=== PATIENT | female | born 1955 | race Caucasian/White ===

== ENCOUNTER → 2016-11-12 | Outpatient (REF) | payer BC ==
[~2016-11-12] MED LIST: ACIP20TA5 PO; ATOR1TAB21 PO; CALC600T53 PO; CETI10TA PO; CITA20TA4 PO; COUM7.5T PO; DOCU100T8 PO; DONE10TA15 PO; KLOR1TAB69 PO; LANO250T15 PO; LASI20TA PO; LOSA25TA8 PO; LOVA1CAP17 PO; NATU400T PO; TOVI4TAB PO; VALA500T PO; VITA25TA PO; VITA500C19 PO; VITATAB73 PO; percocet PO
[2016-11-12 13:05] LABS: ALBUMIN 3.9 GM/DL (3.2-5.2); ALBUMIN/GLOBULIN RATIO 1.22 (1.00-1.93); BILIRUBIN,TOTAL 0.6 MG/DL (0.2-1.0); CALCIUM LEVEL 9.3 MG/DL (8.5-10.1); CREATININE FOR GFR 1.02 MG/DL (0.55-1.02); FREE T4 0.85 NG/DL (0.76-1.46); MAGNESIUM LEVEL 2.2 MG/DL (1.8-2.4); POTASSIUM SERUM 4.6 MEQ/L (3.5-5.1); TOTAL PROTEIN 7.1 GM/DL (6.4-8.2)
== END ==
LOC: M LABDRAW1 11:57
PROVIDERS: ATTEND Emergency Medicine
DX: I48.1 Persistent atrial fibrillation (principal); E78.2 Mixed hyperlipidemia; R73.01 Impaired fasting glucose; I10 Essential (primary) hypertension

== ENCOUNTER → 2017-01-28 | Outpatient (CLI) | payer BC ==
[~2017-01-28] MED LIST changes: +ACIP1TAB PO; -ACIP20TA5 PO; +ALBU17IN INH; +BREO1INH INH; +BREO1INH3; +CALC1TAB74 PO; -CALC600T53 PO; +CLAR10CA3 PO; +COUM10TA PO; +GABA600T PO; +SPIR25TA2 PO; +TOPR25TA PO; -VALA500T PO; +VALA500T2 PO
--- NOTE | 2017-01-28 16:28 | REPMRS ---
Patient History The patient states she has not had a clinical breast exam in over a year. Patient is postmenopausal. No known family history of cancer. Digital Woman Screen Mammo: January 28, 2017 - Exam #: [id number] Bilateral CC and MLO view(s) were taken. Technologist: Desiree Johnson, Technologist Prior study comparison: April 24, 2015, digital woman screen mammo performed at [facility] to [facility]. March 14, 2014, digital woman screen mammo performed at [facility]. January 17, 2013, digital woman screen mammo performed at [facility] to [facility]. FINDINGS: The breast tissue is heterogeneously dense. This may lower the sensitivity of mammography. There is a moderate amount of heterogeneously dense fibroglandular tissue which is fairly symmetric. There is no interval development of dominant mass, architectural distortion, or clustered microcalcification typical of malignancy. There has been no change in the appearance of the mammogram from the prior studies. ASSESSMENT: BI-RADS/ACR category 1 mammogram. Negative. Recommendation Routine screening mammogram of both breasts in 1 year (for women over age 40). This mammogram was interpreted with the aid of an FDA-approved computer-aided dectection system. Electronically Signed By: Victorino Deluca MD 01/28/17 [id number]
== END ==
LOC: M WHC 13:26
PROVIDERS: ATTEND Emergency Medicine
DX: Z12.31 Encounter for screening mammogram for malignant neoplasm of breast (principal)

== ENCOUNTER 2017-01-31 13:07 | Emergency (ER) | payer BC ==
[~2017-01-31] VITALS: Ht 157.5 cm; Wt 87.7 kg
[2017-01-31 13:07] VITALS: BP 90/59
[~2017-01-31 13:07] MED LIST changes: -ALBU17IN INH; -BREO1INH INH; -BREO1INH3; -CLAR10CA3 PO; -COUM10TA PO; -GABA600T PO; -SPIR25TA2 PO; -TOPR25TA PO
[2017-01-31] MEDS ORDERED: ALBU17IN INH (13:26)
[2017-01-31] MEDS ORDERED: SPIR25TA2 PO (13:26)
[2017-01-31] MEDS ORDERED: COUM10TA PO (13:26)
[2017-01-31] MEDS ORDERED: CLAR10CA3 PO (13:26)
[2017-01-31] MEDS ORDERED: BREO1INH INH (13:26)
[2017-01-31] MEDS ORDERED: TOPR25TA PO (13:26)
[2017-01-31] MEDS ORDERED: GABA600T PO (13:26)
--- NOTE | 2017-01-31 14:32 | REP ---
Clinical: Trauma. Technique: AP, lateral, bilateral oblique views right foot . Findings: The osseous structures and joint spaces are intact and normal. There is no evidence for acute fracture or dislocation. Surrounding soft tissues are unremarkable. No subcutaneous emphysema or radiodense foreign body. Impression: No acute fracture or dislocation. Signed by Jose Alicea MD 01/31/2017 02:24 P
== END 2017-01-31 14:47 | disposition home or self-care (01) ==
LOC: M ED 13:07
DX: S90.31XA Contusion of right foot, initial encounter (principal); W28.XXXA Contact with powered lawn mower, initial encounter; Y92.009 Unspecified place in unspecified non-institutional (private) residence as the place of occurrence of the external cause; Y93.89 Activity, other specified; Y99.8 Other external cause status; I10 Essential (primary) hypertension; Z86.73 Personal history of transient ischemic attack (TIA), and cerebral infarction without residual deficits; Z79.899 Other long term (current) drug therapy; Z79.01 Long term (current) use of anticoagulants

== ENCOUNTER 2017-02-09 07:46 | Emergency (ER) | payer BC ==
[~2017-02-09] VITALS: Ht 157.5 cm; Wt 88.6 kg
[~2017-02-09 07:46] MED LIST changes: +ALBU17IN INH; +BREO1INH INH; +CLAR10CA3 PO; +COUM10TA PO; +GABA600T PO; +SPIR25TA2 PO; +TOPR25TA PO
[2017-02-09] MEDS ORDERED: BREO1INH3 (08:01)
[2017-02-09 08:50] LABS: EOS # 0.1 K/mm3 (0.0-0.50); EOS % 2.7 % (0.0-3.0); LARGE UNSTAINED CELL # 0.1 K/mm3 (0.0-0.4); LARGE UNSTAINED CELL % 1.9 % (0.0-4.0); LYMPH # 0.7 K/mm3 (1.5-4.5); MEAN CORPUSCULAR HEMOGLOBIN 32.3 pg (27.0-33.0); MEAN CORPUSCULAR HGB CONC 34.1 g/dl (32.0-36.5); MEAN CORPUSCULAR VOLUME 94.6 fl (80.0-96.0); MONO # 0.3 K/mm3 (0.0-0.8); MONO % 7.3 % (0.0-5.0); NEUTROPHILS # 2.3 K/mm3 (1.8-7.7); NEUTROPHILS % 67.1 % (36.0-66.0); PLATELET COUNT, AUTOMATED 235 k/mm3 (150-450); RED CELL DISTRIBUTION WIDTH 15.9 % (11.5-14.5); WHITE BLOOD COUNT 3.4 K/mm3 (4.0-10.0)
[2017-02-09 08:58] LABS: INR 2.84
[2017-02-09] MEDS: METOPROLOL 5 MG/5 ML VIAL IV SCH ×3 (09:00→09:10)
[2017-02-09 09:11] LABS: ANION GAP 7 MEQ/L (8-16); BLOOD UREA NITROGEN 23 MG/DL (7-18); CALCIUM LEVEL 8.8 MG/DL (8.5-10.1); CARBON DIOXIDE LEVEL 25 MEQ/L (21-32); CHLORIDE LEVEL 106 MEQ/L (98-107); CREATININE FOR GFR 1.01 MG/DL (0.55-1.02); GLOMERULAR FILTRATION RATE 59.7 (>51); GLUCOSE, FASTING 117 MG/DL (70-105); POTASSIUM SERUM 3.4 MEQ/L (3.5-5.1); SODIUM LEVEL 138 MEQ/L (136-145)
[2017-02-09 09:49] LABS: FREE T4 1.18 NG/DL (0.76-1.46); PHOSPHORUS LEVEL 3.1 MG/DL (2.5-4.9)
--- NOTE | 2017-02-09 09:59 | REP ---
Chest x-ray: Two views. History: Shortness of breath. Comparison chest x-ray January 03, 2016. Findings: The patient is status post prior median sternotomy. EKG monitoring electrodes overlie the chest. There are clips in the upper abdomen on the right. Heart size is borderline and there is evidence suggesting left atrial enlargement as before. This is unchanged. Pulmonary vasculature is somewhat indistinct and congested however. There is subtle subpleural edema blunting the pleural angles bilaterally. Some Gladys C and B lines are visible. Impression: CHF pattern. Post median sternotomy. Mildly prominent heart with evidence of left atrial enlargement. Gladys B lines and subpleural edema noted blunting the pleural angles. Signed by Mj Deluca MD 02/09/2017 11:03 A
[2017-02-09] MEDS ORDERED: FUROSEMIDE 20 MG/2 ML VIAL (J1940) IV ONE (10:00)
[2017-02-09 13:11] VITALS: BP 117/80
--- NOTE | 2017-02-09 21:49 | ECGEPIP ---
Stationary ECG Study [facility] - ED Test Date: 2017-02-09 Pat Name: JOHNNY REHMAN Department: Room: - Gender: F Strategic Consultant: marc : 1955 Requested By: GIRISH Sun Order Number: [id number] Reading MD: Ann-Marie Garcia Measurements Intervals [place] Rate: 154 P: CT: 0 QRS: 8 QRSD: 87 T: 60 QT: 277 QTc: 444 Interpretive Statements ATRIAL FIBRILLATION WITH RAPID VENTRICULAR RESPONSE NONSPECIFIC ST & T-WAVE ABNORMALITY ABNORMAL RHYTHM ECG PRIOR 01/03/16 SINUS RHYTHM Electronically Signed On 02-09-2017 21:48:52 EDT by Ann-Marie Garcia
== END 2017-02-09 13:12 | disposition short-term general hospital (02) ==
LOC: M ED 07:46
DX: I48.91 Unspecified atrial fibrillation (principal); I50.9 Heart failure, unspecified; R94.31 Abnormal electrocardiogram [ECG] [EKG]; I11.0 Hypertensive heart disease with heart failure; J44.9 Chronic obstructive pulmonary disease, unspecified; J30.9 Allergic rhinitis, unspecified; Z86.73 Personal history of transient ischemic attack (TIA), and cerebral infarction without residual deficits; Z87.891 Personal history of nicotine dependence; Z79.899 Other long term (current) drug therapy; Z79.01 Long term (current) use of anticoagulants
CPT/HCPCS: 71020; 80048; 82550; 82553; 83690; 83735; 83880; 84100; 84439; 84443; 85025; 85610; 85730; 93005; 93041; 94760; 96374; 99285; J1940

== ENCOUNTER 2017-06-21 11:55 | Inpatient (IN) | payer BC ==
[~2017-06-21] VITALS: Ht 157.5 cm; Wt 90.4 kg
[~2017-06-21 11:55] MED LIST changes: +BREO1INH3 INH
[2017-06-21] MEDS ORDERED: ZYRT10CA PO (12:14)
[2017-06-21 13:04] LABS: BASO % 0.1 % (0.0-1.0); EOS % 0.2 % (0.0-3.0); IMMATURE GRANULOCYTE % 1.1 % (0-0); LYMPH # 1.6 10^3/uL (1.5-4.5); LYMPH % 9.2 % (24.0-44.0); MEAN CORPUSCULAR HEMOGLOBIN 30.9 pg (27.0-33.0); MEAN CORPUSCULAR HGB CONC 33.7 g/dl (32.0-36.5); MEAN CORPUSCULAR VOLUME 91.6 fl (80.0-96.0); MONO # 1.1 10^3/uL (0.0-0.8); MONO % 6.7 % (0.0-5.0); NEUTROPHILS # 14.1 10^3/uL (1.8-7.7); NEUTROPHILS % 82.7 % (36.0-66.0); PLATELET COUNT, AUTOMATED 344 10^3/uL (150-450); RED CELL DISTRIBUTION WIDTH 18.6 % (11.5-14.5); WHITE BLOOD COUNT 17.1 10^3/uL (4.0-10.0)
[2017-06-21 13:28] LABS: ANION GAP 10 MEQ/L (8-16); BLOOD UREA NITROGEN 27 MG/DL (7-18); CALCIUM LEVEL 8.9 MG/DL (8.5-10.1); CARBON DIOXIDE LEVEL 22 MEQ/L (21-32); CHLORIDE LEVEL 105 MEQ/L (98-107); GLUCOSE, FASTING 123 MG/DL (70-105); POTASSIUM SERUM 4.1 MEQ/L (3.5-5.1); SODIUM LEVEL 137 MEQ/L (136-145)
[2017-06-21] MEDS ORDERED: diltiaZEM 125 MG in NS 100 ML IV SCH (13:45)
[2017-06-21 13:56] LABS: INR 4.2
--- NOTE | 2017-06-21 14:01 | REP ---
PORTABLE CHEST X-RAY: Single view. HISTORY: Dyspnea and cough. Comparison chest x-ray: February 09, 2017. FINDINGS: EKG monitoring electrodes overlie the chest as before. Prior median sternotomy wires are again seen. There is evidence of left atrial enlargement. The heart is not enlarged overall. Pleural angles are sharp. No pleural effusion or pulmonary edema is seen. There is some pulmonary vascular cephalization. Today's view is exposed at a somewhat apical lordotic projection. No other bony abnormality is seen. IMPRESSION: Cephalization. Prior median sternotomy. Evidence of left atrial enlargement. Otherwise no active disease. Signed by Mj Deluca MD 06/21/2017 03:45 P
[2017-06-21] MEDS ORDERED: NS IV SCH (14:21)
[2017-06-21] MEDS ORDERED: DILTIAZEM IV SCH (14:21)
[2017-06-21] MEDS ORDERED: FUROSEMIDE 40 MG/4 ML VIAL (J1940) IV ONE (14:45)
[2017-06-21] MEDS ORDERED: DIGOXIN INJ 0.5 MG/2 ML AMP (J1160) IV ONE (15:15)
[2017-06-21] MEDS ORDERED: IPRATROPIUM 0.5MG/ALBUTEROL 2.5MG INH SOL UD 3ML (DUONEB)(J7620) NEB ONE (15:15)
[2017-06-21 15:44] LABS: ABG BASE EXCESS -0.6 (-2.0-2.0); ABG HCO3 22.6 MEQ/L (22.0-26.0); ABG PARTIAL PRESSURE CO2 32.7 mmHg (35.0-45.0); ABG PARTIAL PRESSURE O2 136.3 mmHg (75.0-100.0); ABG TOTAL CO2 23.6 MEQ/L (22.0-29.0); ABG pH (ARTERIAL) 7.458 UNITS (7.350-7.450)
[2017-06-21] MEDS ORDERED: PRAV40TA2 PO (16:31)
[2017-06-21] MEDS ORDERED: PRED10TA2 PO (16:31)
[2017-06-21] MEDS ORDERED: ACET50TAOT PO (16:31)
[2017-06-21] MEDS ORDERED: MONT10TA2 PO (16:31)
[2017-06-21] MEDS ORDERED: COUM1TAB19 PO (16:31)
[2017-06-21] MEDS ORDERED: AUGM875T28 PO (16:31)
[2017-06-21] MEDS ORDERED: GUAI400T6 PO (16:31)
[2017-06-21] MEDS ORDERED: GABA600T PO (16:32)
[2017-06-21 16:41] LABS: THYROXINE (T4) 7.1 UG/DL (4.5-12.0)
[2017-06-21] MEDS ORDERED: AMIODARONE HCL 150 MG in APPROPRIATE DILUENT 1 EA IV ONE (16:45)
[2017-06-21] MEDS: AMIODARONE HCL 360 MG in APPROPRIATE DILUENT 1 EA IV SCH ×3 (17:00→23:09)
[2017-06-21] MEDS ORDERED: IPRATROPIUM 0.5MG/ALBUTEROL 2.5MG INH SOL UD 3ML (DUONEB)(J7620) NEB PRN (18:00)
--- NOTE | 2017-06-21 20:31 | CR ---
DATE OF CONSULTATION: 06/21/2017 REFERRING PHYSICIAN: Vaishali Cooper MD HISTORY OF PRESENT ILLNESS: Ms. Corrales is previously unknown to me, even though I found in the computer today I actually saw her once in 2005. She is a pleasant, 61-year-old female, who has a history of mitral valve replacement in [address] [employer] prosthesis for mitral stenosis. She presented to our facility after approximately a 10 day illness. She describes gradually progressive dyspnea, together with cough and sore throat with symptoms of upper respiratory infection. She was prescribed by her primary care physician Augmentin and prednisone, but it did not seem to help her symptoms much. When she came to see him, she was found to be in atrial fibrillation with rapid ventricular response (RVR) and was brought to hospital for further evaluation. In an attempt to slow down her heart rate, she was given a total of 50 mg IV Cardizem and 0.5 mg of IV digoxin without any appreciable effect on her heart rate. She continues to be short of breath with minimal activity, but feels fairly comfortable at rest. She carries a prior history of atrial fibrillation. Most of the history is provided by her daughter and she reports that she had an episode in July 2015, that was brought on by an upper respiratory infection and required cardioversion, and another episode was in January 2017, again brought on by symptoms of upper respiratory infection. At that point, she was transferred to [facility] where she underwent cardioversion and was discharged home the same today. She follows chronically with Dr. Howard and has been chronically anticoagulated with Coumadin. PAST MEDICAL HISTORY: 1. Mitral stenosis, history of initially valvuloplasty and eventually mitral valve replacement in [address] Pop prosthesis. 2. History of paroxysmal atrial fibrillation as above. 3. 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 4. History of intracranial hemorrhage around 2005 or 2006, apparently resolved with just simply discontinuation of Coumadin and reversing INR. She has been left with symptoms of mild cognitive deficits since and briefly follows with Dr. Cardoza. 5. History of Carrion's esophagus. 6. Depression. 7. History of asthma. 8. Hyperlipidemia. 9. Gastroesophageal reflux disease (GERD). SURGICAL HISTORY: Positive for mitral valve replacement as above, cholecystectomy, carpal tunnel surgeries, tonsillectomy, and bladder repair. OUTPATIENT MEDICATIONS: - Ventolin as needed - vitamin E - calcium with vitamin D - Zyrtec 10 mg daily - citalopram 20 mg daily - donepezil 10 mg daily - fluticasone inhalation as needed - furosemide 40 mg daily - gabapentin 600 mg twice a day - losartan 25 mg daily - metoprolol 25 mg daily - montelukast 10 mg daily - Lovaza 1 gram two tablets twice a day - pravastatin 40 mg daily - prednisone taper as directed by primary care physician - AcipHex 20 mg daily - spironolactone 12.5 mg daily - valacyclovir 500 mg at night - vitamin B - warfarin SOCIAL HISTORY: Patient lives with her daughter and her family. There is no history of alcohol and smoking. FAMILY HISTORY: Her mother suffered a cerebrovascular accident and from it. ALLERGIES: No known allergies. REVIEW OF SYSTEMS; She denies any recent nausea, vomiting, diarrhea. No recent bleeding problems. No syncope and near syncope. She denies any sensation of palpitations per se. She has mild discomfort in her chest which has been persistent and chronic. Dyspnea is markedly worse for about 10 days. No abdominal pain. No diarrhea. No blood in her urine. No change in chronic mild peripheral edema. The rest of the review of systems as above or negative. PHYSICAL EXAMINATION: Ms. Corrales is a middle aged woman who looks a little older than her calendar age. Last set of documented vital signs was blood pressure 124/80, heart rate 148, irregularly irregular, saturation was 94% on room air, and her weight was documented at 90 kg. She is alert and oriented times three, even though she is unable to provide good medical history and most of the information has to be filled in by her daughter. Her jugular venous pulse (JVP) does not appear high persistently, but she has prominent TR pulsation going at least 4 cm above clavicle. Lungs are relatively clear to auscultation, I do not appreciate any wheezing or crackles, but the air movement is fair. Heart exam reveals somewhat muffled heart sound with a prosthetic sound intact. I do not appreciate any murmur or gallop. She has prominent tachycardia. Abdomen is soft without distention. No hepatosplenomegaly. Extremities about 1+ edema to about mid shins. Peripheral pulses are of good quality. I do not appreciate any skin lesions. Neurologically she is intact. She has thrush in her mouth. LABORATORY DATA: CBC revealed a WBC count of 17,000, hemoglobin 12.2, hematocrit 36, and platelet count 344,000. Basic metabolic panel: Potassium 4.1, BUN 27, creatinine 1.24, GFR 49, glucose 123, lactic acid 1.7. She already had two sets of cardiac enzymes that have been negative. K-dxwdfykl-[id number]-BNP is 3600 and TSH is 1.4. INR is 4.2. Chest x-ray reveals cardiomegaly. I do not appreciate the prosthetic valve on under penetrated film, but there is clear cut of prior sternotomy. I do not appreciate any pleural effusions. There appears to be vascular distribution. No distinct infiltrate. ASSESSMENT AND PLAN: Ms. Corrales is a 61-year-old female who is many years after mitral valve replacement with mechanical prosthesis and prior history of atrial fibrillation, who presents with another atrial fibrillation with rapid ventricular response (RVR). I actually suspect that her respiratory illness, that was probably triggered by her graeme infection from her family members (according to her daughter everybody in her house has been sick lately), triggered the atrial fibrillation and consequently caused the shortness of breath. Currently, she is receiving IV amiodarone. I think it is likely that she will need some form of antiarrhythmic at least on a short run to decrease the likelihood of relapse of another atrial fibrillation. Together with combined Cardizem, or potentially metoprolol, I am hoping that adequate heart rate will be accomplished within a day or two. Subsequently, we can consider DC cardioversion depending on her clinical condition. Simultaneously, I also agree with receiving higher dose of IV diuretics, she is on 40 mg of furosemide daily and I agree with 40 mg twice a day IV dosing. Even though no radha pulmonary edema is apparent on chest x-ray, she certainly is in congestive heart failure, at least in part due to her tachycardia. Unfortunately, I will be leaving town tomorrow morning, but I will sign off patient with the covering weigher and charger. I explained this to the family. In the long run, her followup will remain with Dr. Howard in [place].
--- NOTE | 2017-06-21 20:51 | HPE ---
DATE OF ADMISSION: 06/21/2017 PRIMARY CARE PROVIDER: Dr. Faizan Johnson ADMINISTRATIVE SERVICES MANAGER: Dr. Howard INPATIENT ADMINISTRATIVE SERVICES MANAGER: Dr. Edouard on consult CHIEF COMPLAINT: Shortness of breath and cough with palpitations. HISTORY OF PRESENT ILLNESS: This is a 61-year-old female patient with underlying medical history of asthma, paroxysmal atrial fibrillation, dementia, cerebrovascular accident (CVA), with no residual deficits other than some dementia, and also history of intracranial hemorrhage and also history of asthma, hypertension, dyslipidemia, atrial fibrillation on Coumadin; client resource specialist Dr. Field. Patient presented to the hospital with one week of shortness of breath and cough productive of yellow sputum with chills and undetected fever, and then for the past couple with palpitations, with positive sick contact, and significant shoulder pain with cough. Patient was sent here b y primary care provider because patient was found to have been in atrial fibrillation with rapid ventricular response previous episodes in March, patient was transferred to [place] and had cardioversion. Patient denies any chest pain, pressure or discomfort. Received nebulizer treatment in the emergency room. ALLERGIES: No know drug allergies. PAST MEDICAL HISTORY: Asthma, paroxysmal atrial fibrillation, dementia, congestive heart failure, hypertension, dyslipidemia, cerebrovascular accident (CVA), hemorrhagic bleed, intracranial bleed secondary to trauma. PAST SURGICAL HISTORY: Tonsillectomy, mitral valve repair, mitral valve replacement with mechanical valve, cholecystectomy. SOCIAL HISTORY: Quit smoking 2005, one pack per day for 38 year. Rate alcohol use once a year or twice a year. No illicit drug use. FAMILY HISTORY: Denies family history of cancer. REVIEW OF SYSTEMS: Reported palpitations, shoulder pain and cough with subjective chills. All other review of systems are negative. HOME MEDICATIONS: - acetaminophen 1000 mg by mouth every 6 hours - Ventolin inhalers as needed - Vitamin E 400 units by mouth daily - Augmentin 875 mg by mouth twice a day - calcium vitamin D one tablet - Zyrtec 10 mg by mouth at bedtime - citalopram 40 mg by mouth daily - Colace 100 mg by mouth twice a day - donepezil 10 mg by mouth at bedtime - Breo inhalation daily - Lasix 40 mg by mouth daily - gabapentin 600 mg by mouth every morning 1200 mg by mouth at bedtime - Robitussin 400 mg by mouth daily - Losartan 25 mg by mouth daily - metoprolol XL 25 mg by mouth daily - Singulair 10 mg by mouth daily - [place] 3 fatty acid 2 capsule by mouth twice a day - Pravastatin 40 mg by mouth daily - Prednisone taper - Aciphex 20 mg by mouth daily - spironolactone 12.5 mg by mouth daily - Valacyclovir 100 mg by mouth at bedtime - Vitamin B complex one tablet by mouth daily - Coumadin 7.5 mg by mouth Tuesday, Tuesday, 9 mg by mouth Tuesday, Tuesday, , Tuesday, Tuesday. PHYSICAL EXAMINATION: Vital signs: Temperature 96.5, pulse 170 to 140, respiratory 16, blood pressure 124/80, pulse ox 94% on room air. GENERAL: Patient obese, alert and oriented times three, speaks in full sentences in no acute distress. HEENT: Normocephalic, atraumatic. PULMONARY: Bilateral expiratory wheeze. CARDIAC: Irregularly irregular, tachycardia, S1, S2. ABDOMEN: soft, non-tender, positive bowel sounds. EXTREMITIES: 1+ edema bilateral lower extremities. LABORATORY DATA: Wbc 17.1, hemoglobin and hematocrit 12.2/36.2, platelets 344. Chemistry: Sodium 137, potassium 4.1, chloride 105, bicarbonate 22, BUN 25, creatinine 1.2, cardiac enzyme negative times two. Chest x-ray: No focal consolidation. ASSESSMENT AND PLAN: This is a 61-year-old female patient with underlying medical history of dementia, cerebrovascular accident (CVA), congestive heart failure, paroxysmal atrial fibrillation, hypertension, dyslipidemia, asthma, admitted with atrial fibrillation with rapid ventricular response. PROBLEMS: 1. Atrial fibrillation with rapid ventricular response, given asthma exacerbation avoid beta blockers. Cardiology consulted. Cardizem drip was ineffective. Consider Cardizem oral 60 mg by mouth every 6 hours. Case discussed with Dr. Edouard. We will place the patient on amiodarone drip. Case also discussed with patient's rf design engineer cardiac monitor technician for Dr. Howard, patient's primary rf design engineer, agrees with current plan. If patient does not convert with amiodarone drip will consider cardioversion in the morning. Trend cardiac enzymes. Thyroid function appreciated. Continue monitoring. Cardiology consulted. Patient on Coumadin with supratherapeutic INR. We will follow up INR. Patient has mechanical valve with a goal INR of 2.5 to 3.5. We will follow up INR and dose Coumadin accordingly. 2. Acute congestive heart failure exacerbation. Continue Lasix. Strict ins and outs. Daily weight. Continue home medication. 3. Acute asthma exacerbation likely secondary to viral upper respiratory infection, withholding antibiotics, C-reactive protein minimal. We will place the patient on IV steroids. Nebulizer treatment. Continue inhalers. Follow up respiratory panel. Sputum cultures. Withholding antibiotics at this roxane given less likely bacterial infection. 4. Leukocytosis secondary to steroid culture sent. 5. Dementia. Continue home medication. 6. Hypertension. Continue current medication. Patient on Cardizem, Lasix, losartan., 7. Dyslipidemia. Continue statin. 8. History of cerebrovascular accident (CVA). Patient was on Coumadin with supratherapeutic INR. 9. Deep vein thrombosis prophylaxis. Patient on Coumadin with supratherapeutic INR for treatment of valvular atrial fibrillation. DISPOSITION: Pending rate control. Follow up cardiac enzyme. Taper steroids as tolerated. Physical therapy.
[2017-06-21 21:00] VITALS: BP 142/86
[2017-06-21] MEDS ORDERED: DONEPEZIL 5 MG TAB PO SCH (21:00)
[2017-06-21] MEDS: OMEGA-3 1050MG CAPSULE PO SCH (21:05)
[2017-06-21] MEDS: methylPREDNISolone INJ 125 MG/2 ML VIAL (J2930) IV SCH (21:05)
[2017-06-21] MEDS: DOCUSATE SODIUM 100 MG CAP PO SCH (21:05)
[2017-06-21] MEDS: SENOKOT S TAB PO SCH (21:05)
[2017-06-21] MEDS: CETIRIZINE (ZyrTEC) 10 MG TAB PO SCH (21:06)
[2017-06-21] MEDS: valACYclovir HCL 500 MG TAB PO SCH (21:06)
[2017-06-21] MEDS: BENZONATATE 100 MG CAP PO SCH (21:06)
[2017-06-21] MEDS: guaiFENesin ER 600 MG TAB PO SCH (21:06)
[2017-06-21] MEDS: GABAPENTIN 400 MG CAP PO SCH (21:07)
[2017-06-21 21:41] LABS: CALCIUM LEVEL 8.9 MG/DL (8.5-10.1); CREATININE FOR GFR 1.46 MG/DL (0.55-1.02); MAGNESIUM LEVEL 1.7 MG/DL (1.8-2.4); POTASSIUM SERUM 4.2 MEQ/L (3.5-5.1)
[2017-06-21 22:00] VITALS: BP 116/86
[2017-06-21] MEDS ORDERED: MAGNESIUM GLUCONATE 500 MG TAB PO ONE (22:45)
[2017-06-21] MEDS: NYSTATIN 500,000 U/5 ML SUSP UDC SS SCH ×2 (23:09→23:26)
[2017-06-21] MEDS: IPRATROPIUM 0.5MG/ALBUTEROL 2.5MG INH SOL UD 3ML (DUONEB)(J7620) NEB SCH (23:15)
[2017-06-22] VITALS (12 sets, daily range): BP systolic 121–162; BP diastolic 62–107
[2017-06-22] MEDS: IPRATROPIUM 0.5MG/ALBUTEROL 2.5MG INH SOL UD 3ML (DUONEB)(J7620) NEB SCH ×4 (01:22→20:00)
[2017-06-22] MEDS: methylPREDNISolone INJ 125 MG/2 ML VIAL (J2930) IV SCH ×3 (03:03→18:15)
[2017-06-22] MEDS: AMIODARONE HCL 360 MG in APPROPRIATE DILUENT 1 EA IV SCH ×2 (04:44→15:35)
[2017-06-22 05:17] LABS: MEAN CORPUSCULAR HEMOGLOBIN 30.9 pg (27.0-33.0); MEAN CORPUSCULAR HGB CONC 33.3 g/dl (32.0-36.5); MEAN CORPUSCULAR VOLUME 92.8 fl (80.0-96.0); PLATELET COUNT, AUTOMATED 255 10^3/uL (150-450); RED CELL DISTRIBUTION WIDTH 18.7 % (11.5-14.5)
[2017-06-22 05:30] LABS: INR 2.73
[2017-06-22 05:43] LABS: ALBUMIN/GLOBULIN RATIO 0.75 (1.00-1.93); ALKALINE PHOSPHATASE 229 U/L (45-117); ALT/SGPT 158 U/L (12-78); ANION GAP 7 MEQ/L (8-16); AST/SGOT 71 U/L (7-37); BLOOD UREA NITROGEN 27 MG/DL (7-18); CALCIUM LEVEL 8.6 MG/DL (8.5-10.1); CARBON DIOXIDE LEVEL 29 MEQ/L (21-32); CHLORIDE LEVEL 100 MEQ/L (98-107); CREATININE FOR GFR 1.24 MG/DL (0.55-1.02); GLOMERULAR FILTRATION RATE 47.1 (>51); GLUCOSE, FASTING 186 MG/DL (70-105); POTASSIUM SERUM 4.3 MEQ/L (3.5-5.1); SODIUM LEVEL 136 MEQ/L (136-145)
[2017-06-22] MEDS: NYSTATIN 500,000 U/5 ML SUSP UDC SS SCH ×3 (05:47→18:13)
[2017-06-22] MEDS ORDERED: DIGOXIN 0.25 MG TAB PO ONE (08:00)
--- NOTE | 2017-06-22 08:30 | IPN ---
DATE: 06/22/2017 Mrs. Corrales had a relatively good night. She tells me that she was able to sleep reasonably well and did not have any is dyspnea at rest and no paroxysmal nocturnal dyspnea, but she still is very short of breath just walking to the bathroom. Her heart rate unfortunately remains uncontrolled, averages around 140 beats per minute. Vital signs this morning: Blood pressure 162/91, heart rate is 148. Saturation 94%. Her fluid balance yesterday was slightly negative. Weight is documented at 91.6. She is alert and oriented and appropriate. Her jugular venous pressure is a little bit over clavicle. Lungs reveal fair air movement, but I do not appreciate any wheezing or crackles. Heart exam reveals intact metallic prosthetic sounds and no gallop or rub. Abdomen is soft. No tenderness. Trace peripheral edema. Neurologically, no deficit. LABORATORY GONZALEZ: CBC revealed WBC count 15,000, hemoglobin 11.6, hematocrit 34, platelet count 255,000. Basic metabolic panel: Potassium 4.3, BUN 27, creatinine 1.2, GFR 47 and glucose 186. The respiratory virus panel she tested positive for parainfluenza virus. Blood cultures are still pending. ASSESSMENT AND PLAN: Mrs. Corrales is a 61-year-old female who has a history of mitral valve replacement many years ago and presented with relapse of atrial fibrillation with rapid ventricular response. She does not have any subjective feeling of the arrhythmia, but develops worsening dyspnea. I suspect that the respiratory infection was the trigger here. So far we have not accomplished rate control. She is currently receiving Cardizem every 6 hours. She got 0.5 mg of digoxin yesterday, and she is on amiodarone drip. I will give her single additional dose of digoxin today 0.25 mg and continue amiodarone loading. I am hopeful that it will provide sufficient rate control by the end of the day. Tentatively, I think we should consider cardioversion. I am little bit myself unclear whether it would be better to wait for more amiodarone to penetrate her systems so she has lesser risk of relapse or whether to pursue early on. In any case, I am going to be leaving the area at noon today and I will pass her coverage to covering physician. I do expect that the cardioversion will have to be performed within a day or two. Otherwise, we will continue anticoagulation. INR today is 2.7 and was 4.2 yesterday, so she has been therapeutic and according to her family she has been consistently therapeutic.
[2017-06-22] MEDS ORDERED: LOSARTAN 25 MG TAB PO SCH (09:00)
[2017-06-22] MEDS: DOCUSATE SODIUM 100 MG CAP PO SCH ×2 (09:00→21:04)
[2017-06-22] MEDS ORDERED: VITAMIN E 400 INTERNATIONAL UNITS CAP PO SCH (09:00)
[2017-06-22] MEDS: SENOKOT S TAB PO SCH ×2 (09:00→21:03)
[2017-06-22] MEDS: guaiFENesin ER 600 MG TAB PO SCH ×2 (09:02→21:04)
[2017-06-22] MEDS: BENZONATATE 100 MG CAP PO SCH ×3 (09:03→21:03)
[2017-06-22] MEDS: PRAVASTATIN 20 MG TAB PO SCH (09:03)
[2017-06-22] MEDS: OMEGA-3 1050MG CAPSULE PO SCH (09:04)
[2017-06-22] MEDS: MONTELUKAST 10 MG TAB PO SCH (09:04)
[2017-06-22] MEDS: GABAPENTIN 300 MG CAP PO SCH (09:04)
[2017-06-22] MEDS: SPIRONOLACTONE 12.5MG PER 1/2 TABLET PO SCH (09:04)
[2017-06-22] MEDS: FUROSEMIDE 40 MG/4 ML VIAL (J1940) IV SCH ×2 (09:05→18:15)
--- NOTE | 2017-06-22 09:20 | ECGEPIP ---
Stationary ECG Study [facility] - ED Test Date: 2017-06-21 Pat Name: JOHNNY REHMAN Department: Room: - Gender: F General Lithographic Worker: sb : 1955 Requested By: Steve Nelson Order Number: [id number] Reading MD: Ann-Marie Garcia Measurements Intervals [place] Rate: 169 P: [place]: 0 QRS: 14 QRSD: 84 T: 57 QT: 246 QTc: 413 Interpretive Statements ATRIAL FIBRILLATION WITH RAPID VENTRICULAR RESPONSE NSTTW ABNORMALITY ABNORMAL RHYTHM ECG INCREASED RATE 02/09/17 Electronically Signed On 06-22-2017 9:19:55 EST by Ann-Marie Garcia
--- NOTE | 2017-06-22 11:47 | IPNPDOC ---
Subjective Date Seen The patient was seen on 06/22/17. Subjective Chief Complaint/HPI The patient is a 61-year-old female admitted with a reason for visit of A Fib With Rapid Ventricular Response. Events since last encounter Patient feels a little better than yesterday . still with palpitation but says the abdominal pain and generalized body ache is better. no fever or chills, no sob , no nausea or vomiting . Says always has diarrhea. Objective Physical Examination General Exam: Positive: Alert, Cooperative, No Acute Distress Eye Exam: Positive: PERRLA, Conjunctiva & lids normal, EOMI, Negative: Sclera icteric ENT Exam: Positive: Atraumatic, Mucous membr. moist/pink, Pharynx Normal Neck Exam: Positive: Supple, Negative: JVD, thyromegaly Chest Exam: Positive: Clear to auscultation, Diminished Heart Exam: Positive: Tachycardic, Irregular Rhythm, Normal S1, Normal S2, Other (metallic click), Negative: Gallops, Murmurs, Rubs Telemetry: Positive: Atrial fibrillation Abdomen Exam: Positive: Normal bowel sounds, Soft, Negative: Tenderness, Hepatospenomegaly Extremity Exam: Positive: Edema Assessment /Plan Problems (1) Atrial fibrillation with rapid ventricular response Status: Acute Problem Text: patient in on amiodarone and diltiazem . Also received digoxin. if not controlled pateint will need cardioversion precipitated by respiratory viral infection (2) Parainfluenza infection Status: Acute (3) H/O mitral valve replacement with mechanical valve Status: Chronic Problem Text: MVR in 1988 due to mitral stenosis on coumadin (4) Asthma Status: Chronic (5) History of intracerebral hemorrhage without residual deficit Status: Resolved Problem Text: around 2005- due to trauma. resolved after reversion of coumadin. (6) History of CVA (cerebrovascular accident) without residual deficits Status: Resolved (7) Dementia Status: Chronic (8) Hyperlipidemia Status: Chronic (9) Hypertension Status: Chronic (10) Pulmonary hypertension Status: Chronic (11) Congestive heart failure Status: Acute Problem Text: will continue with lasix and spironolactone. Plan/VTE VTE Prophylaxis Ordered?: Yes VS, I&O, 24H, Fishbone Vital Signs/I&O Vital Signs Date Time Temp Pulse Resp B/P (MAP) Pulse Ox O2 Delivery O2 Flow Rate FiO2 06/22/17 09:04 158 06/22/17 09:00 127/96 06/22/17 08:00 Room Air 06/22/17 08:00 98.3 22 95 I&O- Last 24 Hours up to 6 AM 06/23/17 06:00 Intake Total 240 ml Output Total 350 ml Balance -110 ml Laboratory Data 24H LABS Laboratory Tests 2 06/21/17 12:46: Immature Granulocyte % (Auto) 1.1H, White Blood Count 17.1H, Red Blood Count 3.95L, Hemoglobin 12.2, Hematocrit 36.2, Mean Corpuscular Volume 91.6, Mean Corpuscular Hemoglobin 30.9, Mean Corpuscular Hemoglobin Concent 33.7, Red Cell Distribution Width 18.6H, Platelet Count 344, Neutrophils (%) (Auto) 82.7H, Lymphocytes (%) (Auto) 9.2L, Monocytes (%) (Auto) 6.7H, Eosinophils (%) (Auto) 0.2, Basophils (%) (Auto) 0.1, Neutrophils # (Auto) 14.1H, Lymphocytes # (Auto) 1.6, Monocytes # (Auto) 1.1H, Eosinophils # (Auto) 0.0, Basophils # (Auto) 0.0, Immature Granulocyte # (Auto) 0.2H, Nucleated Red Blood Cells % (auto) 2.0H, Anion Gap 10, Glomerular Filtration Rate 49.0L, Blood Urea Nitrogen 27H, Creatinine 1.20H, Sodium Level 137, Potassium Level 4.1, Chloride Level 105, Carbon Dioxide Level 22, Calcium Level 8.9, Total Creatine Kinase 77, Creatine Kinase MB 2.1, Creatine Kinase MB Relative Index 2.72, Troponin I < 0.02 06/21/17 13:32: Prothrombin Time 42.7H, Prothromb Time International Ratio 4.20, Lactic Acid Level 1.7, C-Reactive Protein, Quantitative 0.31H, HL-Dsy-D-Type Natriuretic Peptide 3656H, Thyroid Stimulating Hormone (TSH) 1.400, Free Thyroxine Index 2.6 , Thyroxine (T4) 7.1, Triiodothyronine (T3) Uptake 36 06/21/17 15:19: Blood Gas Bicarbonate Standard 24.0, Arterial Blood pH 7.458H, Arterial Blood Partial Pressure CO2 32.7L, Arterial Blood Partial Pressure O2 136.3H, Arterial Blood Total CO2 23.6, Arterial Blood HCO3 22.6, Arterial Blood Base Excess -0.6 , Arterial Blood Oxygen Saturation 99.0 06/21/17 19:04: Total Creatine Kinase 63, Creatine Kinase MB 1.6, Creatine Kinase MB Relative Index 2.53, Troponin I < 0.02 06/21/17 21:05: Anion Gap 6L, Glomerular Filtration Rate 39.0L, Blood Urea Nitrogen 24H, Creatinine 1.46H, Sodium Level 138, Potassium Level 4.2, Chloride Level 101, Carbon Dioxide Level 31, Calcium Level 8.9, Magnesium Level 1.7L 06/22/17 05:02: Anion Gap 7L, Glomerular Filtration Rate 47.1L, Blood Urea Nitrogen 27H, Creatinine 1.24H, Sodium Level 136, Potassium Level 4.3, Chloride Level 100, Carbon Dioxide Level 29, Calcium Level 8.6, Magnesium Level 2.0, Nucleated Red Blood Cells % (auto) 0.8H, Prothrombin Time 30.1H, Prothromb Time International Ratio 2.73, Aspartate Amino Transf (AST/SGOT) 71H, Alanine Aminotransferase (ALT /SGPT) 158H, Total Creatine Kinase 51, Alkaline Phosphatase 229H, Total Bilirubin 1.0, Total Protein 7.0, Albumin 3.0L, Creatine Kinase MB 1.6, Creatine Kinase MB Relative Index 3.13, Troponin I < 0.02, C-Reactive Protein, Quantitative 0.41H, Albumin/Globulin Ratio 0.75L CBC/BMP Laboratory Tests 06/21/17 12:46 Red Blood Count 3.95 L, Mean Corpuscular Volume 91.6, Mean Corpuscular Hemoglobin 30.9, Mean Corpuscular Hemoglobin Concent 33.7, Red Cell Distribution Width 18.6 H, Neutrophils (%) (Auto) 82.7 H, Lymphocytes (%) (Auto ) 9.2 L, Monocytes (%) (Auto) 6.7 H, Eosinophils (%) (Auto) 0.2, Basophils (%) ( Auto) 0.1, Neutrophils # (Auto) 14.1 H, Lymphocytes # (Auto) 1.6, Monocytes # ( Auto) 1.1 H, Eosinophils # (Auto) 0.0, Basophils # (Auto) 0.0, Calcium Level 8.9 , Total Creatine Kinase 77 06/21/17 21:05 Calcium Level 8.9 06/22/17 05:02 Red Blood Count 3.75 L, Mean Corpuscular Volume 92.8, Mean Corpuscular Hemoglobin 30.9, Mean Corpuscular Hemoglobin Concent 33.3, Red Cell Distribution Width 18.7 H, Calcium Level 8.6, Total Creatine Kinase 51, Aspartate Amino Transf (AST/SGOT) 71 H, Alanine Aminotransferase (ALT/SGPT) 158 H, Alkaline Phosphatase 229 H, Total Bilirubin 1.0, Total Protein 7.0, Albumin 3.0 L Microbiology Microbiology 06/21/17 Blood Culture, Received Pending 06/21/17 Blood Culture, Received Pending 06/21/17 Respiratory Virus Panel (PCR) ([facility]) - Final, Complete Parainfluenza 4 (Piv4) ELIGIO MEDINA MD Jun 22, 2017 11:47
--- NOTE | 2017-06-22 16:43 | IPNPDOC ---
Text Note Date of Service The patient was seen on 06/22/17. NOTE At approximately 4:20PM received a page from ICU regarding patient. Patient's daughter had questions about when her Mother's Coumadin would be re-started. Patient's INR is currently therapeutic at 2.73. Coumadin has been on hold since it was supra-therapeutic at time of admission. Called on-call addressograph operator to discuss restarting Coumadin in light of patient possibly undergoing cardioversion in the next couple of days. College Director suggested restarting patient's Coumadin at 9mg Tuesday/Tuesday and 7.5mg Tuesday/ /Tuesday/Tuesday/Tuesday. Patient's home dosage was 9mg 5xweek and 7.5mg 2xweek. Have made adjustments accordingly. Will call daughterRachana , and provider update. VS,Fishbone, I+O VS, Fishbone, I+O Laboratory Tests 06/21/17 21:05 Calcium Level 8.9 06/22/17 05:02 Calcium Level 8.6, Red Blood Count 3.75 L, Mean Corpuscular Volume 92.8, Mean Corpuscular Hemoglobin 30.9, Mean Corpuscular Hemoglobin Concent 33.3, Red Cell Distribution Width 18.7 H, Aspartate Amino Transf (AST/SGOT) 71 H, Alanine Aminotransferase (ALT/SGPT) 158 H, Total Creatine Kinase 51, Alkaline Phosphatase 229 H, Total Bilirubin 1.0, Total Protein 7.0, Albumin 3.0 L Vital Signs Date Time Temp Pulse Resp B/P (MAP) Pulse Ox O2 Delivery O2 Flow Rate FiO2 06/22/17 12:00 Room Air 06/22/17 12:00 98.1 149 24 131/98 (109) 92 I&O- Last 24 Hours up to 6 AM 06/23/17 06:00 Intake Total 480 ml Output Total 350 ml Balance 130 ml SARAH KENYON DO Jun 22, 2017 16:43
[2017-06-22] MEDS ORDERED: WARFARIN SOD 3 MG TAB PO SCH (17:00)
[2017-06-22] MEDS: BREO ELLIPTA 200-25MCG/INH (PATIENT'S OWN MED) INH SCH (20:29)
[2017-06-22] MEDS: valACYclovir HCL 500 MG TAB PO SCH (21:03)
[2017-06-22] MEDS: GABAPENTIN 400 MG CAP PO SCH (21:03)
[2017-06-22] MEDS: AMIODARONE 200 MG TAB (PACERONE) PO SCH (21:04)
[2017-06-22] MEDS: CETIRIZINE (ZyrTEC) 10 MG TAB PO SCH (21:04)
[2017-06-22] MEDS: SODIUM CHLORIDE NASAL 0.65% SPRAY BTL (OCEAN) PRN (21:08)
[2017-06-23] VITALS (16 sets, daily range): BP systolic 116–158; BP diastolic 77–115
[2017-06-23] MEDS: NYSTATIN 500,000 U/5 ML SUSP UDC SS SCH ×5 (00:02→23:49)
[2017-06-23] MEDS: SODIUM CHLORIDE NASAL 0.65% SPRAY BTL (OCEAN) PRN (00:02)
[2017-06-23] MEDS: ACETAMINOPHEN 500 MG TAB PO PRN ×2 (00:26→20:52)
[2017-06-23] MEDS: IPRATROPIUM 0.5MG/ALBUTEROL 2.5MG INH SOL UD 3ML (DUONEB)(J7620) NEB SCH ×3 (02:00→20:00)
[2017-06-23] MEDS: methylPREDNISolone INJ 125 MG/2 ML VIAL (J2930) IV SCH (03:42)
[2017-06-23 05:07] LABS: MEAN CORPUSCULAR HEMOGLOBIN 31.1 pg (27.0-33.0); MEAN CORPUSCULAR HGB CONC 33.4 g/dl (32.0-36.5); PLATELET COUNT, AUTOMATED 259 10^3/uL (150-450); RED CELL DISTRIBUTION WIDTH 18.6 % (11.5-14.5); WHITE BLOOD COUNT 16.8 10^3/uL (4.0-10.0)
[2017-06-23 05:18] LABS: INR 2.19
[2017-06-23 05:30] LABS: ALBUMIN/GLOBULIN RATIO 0.81 (1.00-1.93); BILIRUBIN,TOTAL 0.9 MG/DL (0.2-1.0); CREATININE FOR GFR 1.4 MG/DL (0.55-1.02); MAGNESIUM LEVEL 1.8 MG/DL (1.8-2.4); POTASSIUM SERUM 3.9 MEQ/L (3.5-5.1); TOTAL PROTEIN 6.7 GM/DL (6.4-8.2)
--- NOTE | 2017-06-23 08:42 | IPNPDOC ---
Subjective Date Seen The patient was seen on 06/23/17. Subjective Chief Complaint/HPI The patient is a 61-year-old female admitted with a reason for visit of A Fib With Rapid Ventricular Response. Events since last encounter complains of some intermittent palpitation , also feels a little congested , no fever or chilla, no chest pain or cough. no nausea or vomiting or diarrhea , no abdominal pain. Objective Physical Examination General Exam: Positive: Alert, Cooperative, No Acute Distress Eye Exam: Positive: PERRLA, Conjunctiva & lids normal, EOMI, Negative: Sclera icteric ENT Exam: Positive: Atraumatic, Mucous membr. moist/pink, Pharynx Normal Neck Exam: Positive: Supple, Negative: JVD, thyromegaly Chest Exam: Positive: Clear to auscultation, Diminished Heart Exam: Positive: Tachycardic, Irregular Rhythm, Normal S1, Normal S2, Other (metallic click), Negative: Gallops, Murmurs, Rubs Telemetry: Positive: Atrial fibrillation Abdomen Exam: Positive: Normal bowel sounds, Soft, Negative: Tenderness, Hepatospenomegaly Extremity Exam: Positive: Edema Assessment /Plan Problems (1) Atrial fibrillation with rapid ventricular response Status: Acute Problem Text: patient in on amiodarone and diltiazem . Also received digoxin. continues to be in afib with rvr. await further cardilogy recommendation. if not controlled patient will need cardioversion AFIB with rvr most probably precipitated by respiratory viral infection (2) Parainfluenza infection Status: Acute (3) H/O mitral valve replacement with mechanical valve Status: Chronic Problem Text: MVR in 1988 due to mitral stenosis on coumadin (4) Asthma Status: Chronic Problem Text: will give lev albuterol prn. (5) History of intracerebral hemorrhage without residual deficit Status: Resolved Problem Text: around 2005- due to trauma. resolved after reversion of coumadin. (6) History of CVA (cerebrovascular accident) without residual deficits Status: Resolved (7) Dementia Status: Chronic (8) Hyperlipidemia Status: Chronic (9) Hypertension Status: Chronic (10) Pulmonary hypertension Status: Chronic (11) Congestive heart failure Status: Acute Problem Text: will continue with lasix and spironolactone. (12) Transaminitis Status: Acute Problem Text: posibly due to congestive hepatopathy. i expect it to improve with improvement in her heart rate and resolution of her chf. (13) CLARISA (acute kidney injury) Status: Acute Problem Text: most probably cardiorenal form acute CHF. (14) Hyperglycemia Status: Acute Problem Text: most probably steroid related. A1c was 5.1 in october 2016 will recheck. Plan/VTE VTE Prophylaxis Ordered?: Yes VS, I&O, 24H, Fishbone Vital Signs/I&O Vital Signs Date Time Temp Pulse Resp B/P (MAP) Pulse Ox O2 Delivery O2 Flow Rate FiO2 06/23/17 06:00 120 136/97 (110) 95 Room Air 06/23/17 04:00 98.1 20 Laboratory Data 24H LABS Laboratory Tests 2 06/23/17 04:50: Nucleated Red Blood Cells % (auto) 0.4H, Prothrombin Time 25.2H, Prothromb Time International Ratio 2.19, Anion Gap 7L, Glomerular Filtration Rate 41.0L, Blood Urea Nitrogen 28H, Creatinine 1.40H, Sodium Level 134L, Potassium Level 3.9, Chloride Level 96L, Carbon Dioxide Level 31, Calcium Level 9.0, Aspartate Amino Transf (AST/SGOT) 41H, Alanine Aminotransferase (ALT/SGPT) 126H, Alkaline Phosphatase 201H, Total Bilirubin 0.9, Total Protein 6.7, Albumin 3.0L, Magnesium Level 1.8, Albumin/Globulin Ratio 0.81L CBC/BMP Laboratory Tests 06/23/17 04:50 Red Blood Count 3.57 L, Mean Corpuscular Volume 93.0, Mean Corpuscular Hemoglobin 31.1, Mean Corpuscular Hemoglobin Concent 33.4, Red Cell Distribution Width 18.6 H, Calcium Level 9.0, Aspartate Amino Transf (AST/SGOT) 41 H, Alanine Aminotransferase (ALT/SGPT) 126 H, Alkaline Phosphatase 201 H, Total Bilirubin 0.9, Total Protein 6.7, Albumin 3.0 L Microbiology Microbiology 06/21/17 Blood Culture - Preliminary, Resulted No growth after 24 hours . All specim... 06/21/17 Blood Culture - Preliminary, Resulted No growth after 24 hours . All specim... 06/22/17 Gram Stain, Received Pending 06/22/17 Sputum Culture, Received Pending 06/21/17 Respiratory Virus Panel (PCR) ([facility]) - Final, Complete Parainfluenza 4 (Piv4) ELIGIO MEDINA MD Jun 23, 2017 08:41
[2017-06-23] MEDS ORDERED: ALBUTEROL SULFATE 2.5 MG/0.5 ML INH NEB SOLN NEB PRN (08:45)
[2017-06-23] MEDS: AMIODARONE 200 MG TAB (PACERONE) PO SCH (08:51)
[2017-06-23] MEDS: PRAVASTATIN 20 MG TAB PO SCH (08:51)
[2017-06-23] MEDS: SPIRONOLACTONE 12.5MG PER 1/2 TABLET PO SCH (08:51)
[2017-06-23] MEDS: SENOKOT S TAB PO SCH ×2 (08:51→20:51)
[2017-06-23] MEDS: GABAPENTIN 300 MG CAP PO SCH (08:51)
[2017-06-23] MEDS: MONTELUKAST 10 MG TAB PO SCH (08:51)
[2017-06-23] MEDS: BENZONATATE 100 MG CAP PO SCH ×3 (08:52→20:52)
[2017-06-23] MEDS: FUROSEMIDE 40 MG/4 ML VIAL (J1940) IV SCH ×2 (08:52→16:31)
[2017-06-23] MEDS: guaiFENesin ER 600 MG TAB PO SCH ×2 (08:52→20:52)
[2017-06-23] MEDS: DOCUSATE SODIUM 100 MG CAP PO SCH ×2 (08:52→20:52)
[2017-06-23] MEDS: BREO ELLIPTA 200-25MCG/INH (PATIENT'S OWN MED) INH SCH (10:00)
--- NOTE | 2017-06-23 10:22 | ECHO ---
DATE OF PROCEDURE: 06/22/2017 DATE OF : 1955 AGE: 61. REFERRING PROVIDER: Dr. Pauly Lorenzo PATIENT LOCATION: Room 3204. REASON FOR THE ECHOCARDIOGRAM: Abnormal electrocardiogram (EKG). 2D MEASUREMENTS: IVS: 1.2 cm LV: 4.2 cm LVPW: 1.1 cm LA: 5.0 cm Aorta: 2.5 cm IVC: 2.3 cm DOPPLER MEASUREMENTS: Peak velocity across the aortic valve: 1.9 m/s Peak velocity across the LVOT: 1.2 m/s Peak gradient across aortic valve: 14 mmHg Peak gradient across the mitral valve: 16 mmHg Maximum tricuspid valve velocity: 2.8 m/s 2D COMMENTS: 1. Normal left ventricular size, wall thickness, and normal global left ventricular systolic function is normal. Left ventricular ejection fraction is estimated at 60-65%. 2. Mildly to moderate enlarged left atrium. The right atrium and right ventricle appear to be normal. 3. The atrial septum appeared to be normal without evidence of defect or shunt. 4. Normal aortic root. 5. No pericardial effusion seen. 6. Mildly calcified aortic valve with minimally restricted leaflet motion. Prosthetic valve noted in the mitral valve position, was not well visualized because of calcifications. Normal tricuspid valve. The pulmonic valve and proximal pulmonary artery branches appear to be normal. 7. The inferior vena cava was mildly enlarged, central venous pressure is probably elevated. DOPPLER: It detects mild aortic regurgitation, mild tricuspid regurgitation. The calculated pulmonary artery systolic pressure varied between 30-40 mmHg. Assessment of the left ventricular diastolic function was limited because patient was in atrial fibrillation during the test. IMPRESSION: 1. Normal global left ventricular systolic function. 2. Aortic valve sclerosis with mild aortic regurgitation and trivial aortic stenosis. 3. Mild tricuspid regurgitation with mild pulmonary hypertension and mildly enlarged right atrium. 4. Prosthetic valve noted in the mitral valve position with mild to moderate stenosis, but was not well visualized. For this reason, I will recommend a transesophageal echocardiogram. Leaflets motion were not well visualized. 5. Mildly dilated inferior vena cava/IVC, central venous pressure might be elevated. MTDD
[2017-06-23] MEDS ORDERED: GLUCOSE 4 GM CHEW TABLET PO PRN (10:30)
[2017-06-23] MEDS ORDERED: GLUCAGON FOR INJ 1 MG VIAL (J1610) SC PRN (10:30)
[2017-06-23] MEDS ORDERED: DIGOXIN INJ 0.5 MG/2 ML AMP (J1160) IV ONE (10:30)
[2017-06-23] MEDS ORDERED: DEXTROSE 50% 50 ML SYRINGE IV PRN (10:30)
--- NOTE | 2017-06-23 11:31 | IPN ---
DATE OF SERVICE: 06/23/2017 Dr. Weir providing holiday coverage for attending produce inspector, Dr. Yoni Edouard. SUBJECTIVE: The patient reports exertional dyspnea with minimal activity. No dyspnea at rest. No orthopnea or paroxysmal nocturnal dyspnea (PND). No chest pain or chest discomfort. No lightheadedness or dizziness. PHYSICAL EXAMINATION: Pleasant, obese, woman who appears her chronologic age, who is not in any respiratory or psychologic distress. Weight 91.2 kg, body mass index (BMI) 36.8. Heart rate 161, peak down to as low as 120 beats per minute this morning. Heart rate 153 beats per minute at the bedside at the time of my examination. Blood pressure 136/97. Temperature 98.1, oxygen saturation 95% on room air. Jugular venous pulsations at 3 cm. Midline sternal scar present. Variable intensity, mechanical crisp S1. S2 normal. No S3. No pericardial friction rubs. Grade 1 systolic ejection murmur right second interspace without radiation. No diastolic murmurs appreciated. No palpable apex beat. Respiratory expansion effort was good. No crackles or wheezes. Abdomen was obese, soft, nontender with normal bowel sounds. Trace lower extremity edema in both legs. Oriented to person, place and time. Mood and affect appear normal. Speech is normal. Laboratory work, 06/23/2017, shows WBC 16.8, hemoglobin 11.1, hematocrit 33.2, platelets 259. PT/INR 2.19. Sodium 134, potassium 3.9, chloride 96, CO2 31, BUN 28, creatinine 1.40, estimated GFR of 41.0, glucose 266, magnesium 1.8, albumin 3.0. I have reviewed the echocardiogram Doppler report and briefly looked at the images of the echocardiogram myself as well. The echocardiogram report by Dr. Michael Granados reported normal left ventricular (LV) size, wall thickness and LV systolic function, left ventricular ejection fraction (LVEF) 60-65%. Mild to moderate left atrial enlargement (5.0 cm). No pericardial effusion. Mildly calcified aortic valve with mild aortic regurgitation and trivial aortic stenosis. Prosthetic mitral valve said to have mild to moderate stenosis but not well visualized. ASSESSMENT AND RECOMMENDATIONS: 1. Paroxysmal atrial fibrillation. In view of moderate left atrial dilatation (5.0 cm) along with mitral valve prosthetic valve dysfunction, according to the echocardiogram showing mild to moderate stenosis, I recommend a rate controlled approach rather than a rhythm controlled approach. Therefore, I will discontinue amiodarone. I have increased diltiazem to 90 mg every 6 hours. In order that the AV kelli slowing medication be tolerated, I have discontinued losartan. She received a single dose of digoxin 0.25 mg intravenously (IV). In addition to this, I will start her on bisoprolol beginning at 5 mg daily. Continue warfarin. 2. Status post mitral valve replacement with mechanical prosthesis. The recent echocardiogram Doppler report indicates mild-moderate mitral stenosis. Continue warfarin. Target INR 2.5-3.5. Long-term management will remain with this patient's produce inspector in [place], Dr. Howard. 3. Mixed hyperlipidemia. Fish oil was discontinued because fish oil is associated with increased cardiovascular mortality. Continue pravastatin. 4. Diastolic heart failure. The patient appears to be at her functional dry weight. Continue IV furosemide for now. I anticipate the situation will be better as heart rate control is achieved.
[2017-06-23] MEDS: BISOPROLOL FUMARATE 5 MG TAB PO SCH (11:46)
[2017-06-23] MEDS: HumaLOG INSULIN (NovoLOG) PER UNIT SC SCH ×3 (12:55→20:50)
--- NOTE | 2017-06-23 14:15 | IPNPDOC ---
Text Note Date of Service The patient was seen on 06/23/17. NOTE At approximately 1:45PM I received a call from JD EDWARDS stating that family would like to discuss current plan of care for patient. After reviewing today's progress note by on-call account executive trainee I discussed current plan of cardiac care with patient's daughter, Rachana. Family requested that patient's cardiology group in [place] be contacted. I reached out to [facility] cardiology's on-call physician who has agreed with current rate controlled plan. Further recommendations include providing a summary of the plan of care to be sent to their office on Tuesday to be reviewed by patient's primary account executive trainee. VS,Fishbone, I+O VS, Fishbone, I+O Laboratory Tests 06/23/17 04:50 Red Blood Count 3.57 L, Mean Corpuscular Volume 93.0, Mean Corpuscular Hemoglobin 31.1, Mean Corpuscular Hemoglobin Concent 33.4, Red Cell Distribution Width 18.6 H, Calcium Level 9.0, Aspartate Amino Transf (AST/SGOT) 41 H, Alanine Aminotransferase (ALT/SGPT) 126 H, Alkaline Phosphatase 201 H, Total Bilirubin 0.9, Total Protein 6.7, Albumin 3.0 L Vital Signs Date Time Temp Pulse Resp B/P (MAP) Pulse Ox O2 Delivery O2 Flow Rate FiO2 06/23/17 12:26 144/84 (104) 06/23/17 12:00 Room Air 06/23/17 12:00 97.6 140 22 95 I&O- Last 24 Hours up to 6 AM 06/24/17 06:00 Intake Total 480 ml Output Total 1900 ml Balance -1420 ml SARAH KENYON DO Jun 23, 2017 14:15
[2017-06-23] MEDS: VERAPAMIL 40 MG TAB PO SCH ×2 (15:52→20:51)
[2017-06-23] MEDS: methylPREDNISolone INJ 40 MG/1 ML VIAL (J2920) IV SCH (15:52)
[2017-06-23] MEDS ORDERED: WARFARIN SOD 7.5 MG TAB PO SCH (17:00)
[2017-06-23] MEDS: GABAPENTIN 400 MG CAP PO SCH (20:51)
[2017-06-23] MEDS: valACYclovir HCL 500 MG TAB PO SCH (20:51)
[2017-06-23] MEDS: CETIRIZINE (ZyrTEC) 10 MG TAB PO SCH (20:52)
[2017-06-24] MEDS: IPRATROPIUM 0.5MG/ALBUTEROL 2.5MG INH SOL UD 3ML (DUONEB)(J7620) NEB SCH ×4 (01:36→20:00)
[2017-06-24] MEDS: methylPREDNISolone INJ 40 MG/1 ML VIAL (J2920) IV SCH (03:43)
[2017-06-24 04:00] VITALS: BP 151/98
[2017-06-24] MEDS: NYSTATIN 500,000 U/5 ML SUSP UDC SS SCH ×3 (05:14→18:28)
[2017-06-24 05:22] LABS: MEAN CORPUSCULAR HEMOGLOBIN 31.3 pg (27.0-33.0); MEAN CORPUSCULAR HGB CONC 33.6 g/dl (32.0-36.5); MEAN CORPUSCULAR VOLUME 92.9 fl (80.0-96.0); PLATELET COUNT, AUTOMATED 259 10^3/uL (150-450); RED CELL DISTRIBUTION WIDTH 19.7 % (11.5-14.5); WHITE BLOOD COUNT 19.5 10^3/uL (4.0-10.0)
[2017-06-24 05:32] LABS: INR 3.73
[2017-06-24 05:47] LABS: ALBUMIN 3.1 GM/DL (3.2-5.2); ALBUMIN/GLOBULIN RATIO 0.86 (1.00-1.93); BILIRUBIN,TOTAL 0.9 MG/DL (0.2-1.0); CALCIUM LEVEL 9.1 MG/DL (8.5-10.1); CREATININE FOR GFR 1.27 MG/DL (0.55-1.02); GLOMERULAR FILTRATION RATE 45.9 (>51); MAGNESIUM LEVEL 2.2 MG/DL (1.8-2.4); POTASSIUM SERUM 4.5 MEQ/L (3.5-5.1); TOTAL PROTEIN 6.7 GM/DL (6.4-8.2)
[2017-06-24] MEDS: HumaLOG INSULIN (NovoLOG) PER UNIT SC SCH ×4 (07:30→21:00)
[2017-06-24] MEDS: BREO ELLIPTA 200-25MCG/INH (PATIENT'S OWN MED) INH SCH (07:56)
[2017-06-24 08:00] VITALS: BP 175/97
[2017-06-24] MEDS: PRAVASTATIN 20 MG TAB PO SCH (08:50)
[2017-06-24] MEDS: SENOKOT S TAB PO SCH ×2 (08:51→21:11)
[2017-06-24] MEDS: BENZONATATE 100 MG CAP PO SCH ×3 (08:51→22:11)
[2017-06-24] MEDS: GABAPENTIN 300 MG CAP PO SCH (08:51)
[2017-06-24] MEDS: guaiFENesin ER 600 MG TAB PO SCH ×2 (08:51→21:11)
[2017-06-24] MEDS: DOCUSATE SODIUM 100 MG CAP PO SCH ×2 (08:51→21:11)
[2017-06-24] MEDS: MONTELUKAST 10 MG TAB PO SCH (08:52)
[2017-06-24] MEDS: VERAPAMIL 40 MG TAB PO SCH ×3 (08:53→21:11)
[2017-06-24] MEDS: SPIRONOLACTONE 12.5MG PER 1/2 TABLET PO SCH (08:54)
[2017-06-24] MEDS: FUROSEMIDE 40 MG/4 ML VIAL (J1940) IV SCH (08:54)
[2017-06-24] MEDS: BISOPROLOL FUMARATE 5 MG TAB PO SCH (08:54)
[2017-06-24] MEDS ORDERED: BISOPROLOL FUMARATE 5 MG TAB PO ONE (10:30)
--- NOTE | 2017-06-24 10:44 | IPNPDOC ---
Subjective Date Seen The patient was seen on 06/24/17. Subjective Chief Complaint/HPI The patient is a 61-year-old female admitted with a reason for visit of A Fib With Rapid Ventricular Response. Events since last encounter Patient does not offer any complaints this morning. denies any palpitation , denies any chest pain , cough or phelgm , denies any abdominal pain , nausea or vomiting or diarrhea. no fever or chills. Objective Physical Examination General Exam: Positive: Alert, Cooperative, No Acute Distress Eye Exam: Positive: PERRLA, Conjunctiva & lids normal, EOMI, Negative: Sclera icteric ENT Exam: Positive: Atraumatic, Mucous membr. moist/pink, Pharynx Normal Neck Exam: Positive: Supple, Negative: JVD, thyromegaly Chest Exam: Positive: Clear to auscultation, Diminished Heart Exam: Positive: Tachycardic, Irregular Rhythm, Normal S1, Normal S2, Other (metallic click), Negative: Gallops, Murmurs, Rubs Telemetry: Positive: Atrial fibrillation Abdomen Exam: Positive: Normal bowel sounds, Soft, Negative: Tenderness, Hepatospenomegaly Extremity Exam: Positive: Edema Assessment /Plan Problems (1) Atrial fibrillation with rapid ventricular response Status: Acute Problem Text: A FIB with rvr most probably precipitated by respiratory viral infection at present will aim for rate control rather than rhythm control. on diltiazem and bisoprolol (2) Parainfluenza infection Status: Acute Response to Treatment: Improving (3) H/O mitral valve replacement with mechanical valve Status: Chronic Problem Text: MVR in 1988 due to mitral stenosis on coumadin IN elevated today , will hold 1 dose and start with 7.5 mg daily from tomorrow. (4) Asthma Status: Chronic Problem Text: will give lev albuterol prn. will change to prednisone. (5) History of intracerebral hemorrhage without residual deficit Status: Resolved Problem Text: around 2005- due to trauma. resolved after reversion of coumadin. (6) History of CVA (cerebrovascular accident) without residual deficits Status: Resolved (7) Dementia Status: Chronic (8) Hyperlipidemia Status: Chronic (9) Hypertension Status: Chronic (10) Pulmonary hypertension Status: Chronic (11) Congestive heart failure Status: Acute Problem Text: will continue with lasix and spironolactone. (12) Transaminitis Status: Acute Problem Text: posibly due to congestive hepatopathy. i expect it to improve with improvement in her heart rate and resolution of her chf. (13) CLARISA (acute kidney injury) Status: Acute Problem Text: most probably cardiorenal form acute CHF. (14) Hyperglycemia Status: Acute Problem Text: most probably steroid related. A1c was 5.8 Plan/VTE VTE Prophylaxis Ordered?: Yes VS, I&O, 24H, Fishbone Vital Signs/I&O Vital Signs Date Time Temp Pulse Resp B/P (MAP) Pulse Ox O2 Delivery O2 Flow Rate FiO2 06/24/17 09:01 Room Air 06/24/17 08:53 118 175/97 06/24/17 08:00 97.3 20 94 I&O- Last 24 Hours up to 6 AM 06/25/17 06:00 Intake Total 240 ml Output Total 0 ml Balance 240 ml Laboratory Data 24H LABS Laboratory Tests 2 06/23/17 12:48: Bedside Glucose (Misc Panel) 150H 06/23/17 17:06: Bedside Glucose (Misc Panel) 161H 06/23/17 20:50: Bedside Glucose (Misc Panel) 139H 06/24/17 04:57: Prothrombin Time 38.8H, Prothromb Time International Ratio 3.73 06/24/17 04:58: Nucleated Red Blood Cells % (auto) 0.2H, Anion Gap 5L, Glomerular Filtration Rate 45.9L, Blood Urea Nitrogen 35H, Creatinine 1.27H, Sodium Level 136, Potassium Level 4.5, Chloride Level 97L, Carbon Dioxide Level 34H, Calcium Level 9.1, Aspartate Amino Transf (AST/SGOT) 75H, Alanine Aminotransferase (ALT/ SGPT) 158H, Alkaline Phosphatase 217H, Total Bilirubin 0.9, Total Protein 6.7, Albumin 3.1L, Magnesium Level 2.2, Albumin/Globulin Ratio 0.86L CBC/BMP Laboratory Tests 06/24/17 04:58 Red Blood Count 3.68 L, Mean Corpuscular Volume 92.9, Mean Corpuscular Hemoglobin 31.3, Mean Corpuscular Hemoglobin Concent 33.6, Red Cell Distribution Width 19.7 H, Calcium Level 9.1, Aspartate Amino Transf (AST/SGOT) 75 H, Alanine Aminotransferase (ALT/SGPT) 158 H, Alkaline Phosphatase 217 H, Total Bilirubin 0.9, Total Protein 6.7, Albumin 3.1 L Microbiology Microbiology 06/21/17 Blood Culture - Preliminary, Resulted No Growth after 48 hours. All Specime... 06/21/17 Blood Culture - Preliminary, Resulted No Growth after 48 hours. All Specime... 06/22/17 Gram Stain - Final, Complete 06/22/17 Sputum Culture - Final, Complete 06/21/17 Respiratory Virus Panel (PCR) ([facility]) - Final, Complete Parainfluenza 4 (Piv4) ELIGIO MEDINA MD Jun 24, 2017 10:44
[2017-06-24] MEDS: predniSONE 20 MG TAB PO SCH (11:06)
[2017-06-24 12:00] VITALS: BP 112/82
--- NOTE | 2017-06-24 15:29 | IPN ---
DATE: 06/24/[address] 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 Yoni Edouard. SUBJECTIVE: The patient reports exertional dyspnea has improved since yesterday at about this time. She still experiences some mild exertional dyspnea with light activities around the room. No dizziness or lightheadedness. No orthopnea or paroxysmal nocturnal dyspnea. No chest pain or chest discomfort. She is not aware of any leg or ankle swelling. PHYSICAL EXAMINATION: Pleasant, obese, woman who is not in any respiratory or psychological distress. Weight 92.2 kilograms. Body Mass Index (BMI) 37.2. Temperature 97.3. Pulse 125 (irregularly irregular), respiratory rate 20, blood pressure 136/91, oxygen saturation 94% on room air. Input and output for the 24 hours of 06/23/2017 showed the patient to be net negative 1790 mL. Jugular venous pulsations were at 4 cm. Respiratory expansion and effort were good. Lungs were clear to auscultation. Jugular venous pressure 4 cm. First heart sound was variable in intensity. [place] mechanical S1. Normal S2. Midline sternal scar present. No S3. Grade 1 systolic ejection murmur at the second interspace. No diastolic murmurs appreciated. Abdomen was obese, soft and nontender with normal bowel sounds. Mood and affect normal. Speech is normal. 2 mm pitting edema at mid tibial level bilaterally. Lab work on 06/24/2017 showed WBC 19.5, hemoglobin 11.5, hematocrit 34.2, platelets 259. PT/INR 3.73. Sodium 136, potassium 4.5, chloride 97, CO2 34, BUN 35, creatinine 1.27, estimated GFR 41.9, albumin 3.1. ASSESSMENT AND RECOMMENDATIONS: 1. Paroxysmal atrial fibrillation. The patient continues to remain in atrial fibrillation. Although she continues to have a rapid ventricular rate, overall she has shown improvement in controlled heart rate response since switching from diltiazem to verapamil and adding bisoprolol. Recommend rate control approach because of moderate left atrial dilatation and presence of at least mild prosthetic mitral valve stenosis. Continue verapamil 120 mg three times a day. Continue warfarin (target INR 2.5 to 3.5). I will increase bisoprolol to 10 mg daily. 2. Status post mitral valve replacement (mechanical). The echocardiogram reported at least mild mitral stenosis. 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 Recommend infective endocarditis prophylaxis prior to dental procedures likely to produce transient bacteremia. Continue warfarin (target INR 2.5 to 3.5). 3. Mixed hyperlipidemia. Recommend a DASH diet. Continue pravastatin 40 mg daily. 4. Diastolic heart failure. The patient appears to be mildly decompensated on examination. She has generated excellent net negative urine output. Currently NYHA functional class III. I believe that her symptoms will improve and her heart failure will improve further as heart rate becomes under better control. As noted above, bisoprolol was increased to 10 mg daily. Continue furosemide 40 mg IV twice a day. MTDD
[2017-06-24 16:00] VITALS: BP 102/78
[2017-06-24] MEDS: PANTOPRAZOLE 20 MG TAB PO SCH (17:02)
[2017-06-24] MEDS: FUROSEMIDE 40 MG TAB PO SCH (17:02)
[2017-06-24 20:00] VITALS: BP 144/94
[2017-06-24] MEDS: valACYclovir HCL 500 MG TAB PO SCH (21:11)
[2017-06-24] MEDS: CETIRIZINE (ZyrTEC) 10 MG TAB PO SCH (21:11)
[2017-06-24] MEDS: GABAPENTIN 400 MG CAP PO SCH (21:11)
[2017-06-24] MEDS ORDERED: SIMETHICONE 80 MG CHEW TAB PO PRN (21:15)
[2017-06-25] VITALS (12 sets, daily range): BP systolic 108–158; BP diastolic 62–92
[2017-06-25] MEDS: NYSTATIN 500,000 U/5 ML SUSP UDC SS SCH ×4 (00:09→16:56)
[2017-06-25] MEDS: IPRATROPIUM 0.5MG/ALBUTEROL 2.5MG INH SOL UD 3ML (DUONEB)(J7620) NEB SCH (02:00)
[2017-06-25] MEDS ORDERED: BISOPROLOL FUMARATE 5 MG TAB As Ordered ONE (04:50)
[2017-06-25] MEDS ORDERED: BISOPROLOL FUMARATE 10 MG TAB PO ONE (05:00)
[2017-06-25 06:17] LABS: MEAN CORPUSCULAR HEMOGLOBIN 30.9 pg (27.0-33.0); MEAN CORPUSCULAR HGB CONC 32.9 g/dl (32.0-36.5); PLATELET COUNT, AUTOMATED 264 10^3/uL (150-450); RED CELL DISTRIBUTION WIDTH 19.9 % (11.5-14.5); WHITE BLOOD COUNT 14.5 10^3/uL (4.0-10.0)
[2017-06-25 06:27] LABS: INR 3.53
[2017-06-25 06:44] LABS: ALBUMIN 3.2 GM/DL (3.2-5.2); ALBUMIN/GLOBULIN RATIO 1.07 (1.00-1.93); BILIRUBIN,TOTAL 0.9 MG/DL (0.2-1.0); CALCIUM LEVEL 9.1 MG/DL (8.5-10.1); CREATININE FOR GFR 1.1 MG/DL (0.55-1.02); GLOMERULAR FILTRATION RATE 54.1 (>51); MAGNESIUM LEVEL 2.2 MG/DL (1.8-2.4); POTASSIUM SERUM 4.3 MEQ/L (3.5-5.1); TOTAL PROTEIN 6.2 GM/DL (6.4-8.2)
[2017-06-25] MEDS: HumaLOG INSULIN (NovoLOG) PER UNIT SC SCH ×4 (08:19→21:00)
[2017-06-25] MEDS: PRAVASTATIN 20 MG TAB PO SCH (08:20)
[2017-06-25] MEDS: MONTELUKAST 10 MG TAB PO SCH (08:20)
[2017-06-25] MEDS: VERAPAMIL 40 MG TAB PO SCH ×3 (08:20→21:00)
[2017-06-25] MEDS: guaiFENesin ER 600 MG TAB PO SCH ×2 (08:20→20:09)
[2017-06-25] MEDS: SPIRONOLACTONE 12.5MG PER 1/2 TABLET PO SCH (08:20)
[2017-06-25] MEDS: PANTOPRAZOLE 20 MG TAB PO SCH (08:21)
[2017-06-25] MEDS: BENZONATATE 100 MG CAP PO SCH ×3 (08:21→20:09)
[2017-06-25] MEDS: FUROSEMIDE 40 MG TAB PO SCH ×2 (08:21→16:56)
[2017-06-25] MEDS: predniSONE 20 MG TAB PO SCH (08:21)
[2017-06-25] MEDS: DOCUSATE SODIUM 100 MG CAP PO SCH ×2 (08:21→20:09)
[2017-06-25] MEDS: GABAPENTIN 300 MG CAP PO SCH (08:21)
[2017-06-25] MEDS: SENOKOT S TAB PO SCH ×2 (08:22→20:08)
--- NOTE | 2017-06-25 08:41 | IPNPDOC ---
Subjective Date Seen The patient was seen on 06/25/17. Subjective Chief Complaint/HPI The patient is a 61-year-old female admitted with a reason for visit of A Fib With Rapid Ventricular Response. Events since last encounter No complaints this morning, denies any sob , denies any chest pain or palpitation , denies any abdominal pain ,nausea or vomiting or diarrhea. Objective Physical Examination General Exam: Positive: Alert, Cooperative, No Acute Distress Eye Exam: Positive: PERRLA, Conjunctiva & lids normal, EOMI, Negative: Sclera icteric ENT Exam: Positive: Atraumatic, Mucous membr. moist/pink, Pharynx Normal Neck Exam: Positive: Supple, Negative: JVD, thyromegaly Chest Exam: Positive: Clear to auscultation, Diminished Heart Exam: Positive: Tachycardic, Irregular Rhythm, Normal S1, Normal S2, Other (metallic click), Negative: Gallops, Murmurs, Rubs Telemetry: Positive: Atrial fibrillation Abdomen Exam: Positive: Normal bowel sounds, Soft, Negative: Tenderness, Hepatospenomegaly Extremity Exam: Positive: Edema Assessment /Plan Problems (1) Atrial fibrillation with rapid ventricular response Status: Acute Problem Text: A FIB with rvr most probably precipitated by respiratory viral infection at present will aim for rate control rather than rhythm control. on verapamil and bisoprolol (2) Parainfluenza infection Status: Acute Response to Treatment: Improving (3) H/O mitral valve replacement with mechanical valve Status: Chronic Problem Text: MVR in 1988 due to mitral stenosis on coumadin IN elevated today , will hold 1 dose and start with 7.5 mg daily from tomorrow. (4) Asthma Status: Chronic Problem Text: continue breo, duonebs prn , prednisone, singulair. (5) History of intracerebral hemorrhage without residual deficit Status: Resolved Problem Text: around 2005- due to trauma. resolved after reversion of coumadin. (6) History of CVA (cerebrovascular accident) without residual deficits Status: Resolved (7) Dementia Status: Chronic (8) Hyperlipidemia Status: Chronic Problem Text: continue pravastatin (9) Hypertension Status: Chronic (10) Pulmonary hypertension Status: Chronic (11) Congestive heart failure Status: Acute Problem Text: will continue with lasix and spironolactone. (12) Transaminitis Status: Acute Problem Text: Acute worsening possibly due to congestive hepatopathy. i expect it to improve with improvement in her heart rate and resolution of her chf. She does have history of chronic mild elevation of LFTS from 2008 . This is possibly due to DOUGLAS. will check hepatitis panel. (13) CLARISA (acute kidney injury) Status: Acute Response to Treatment: Improving Problem Text: most probably cardiorenal form acute CHF. (14) Hyperglycemia Status: Acute Problem Text: most probably steroid related. A1c was 5.8 Plan/VTE VTE Prophylaxis Ordered?: Yes VS, I&O, 24H, Fishbone Vital Signs/I&O Vital Signs Date Time Temp Pulse Resp B/P (MAP) Pulse Ox O2 Delivery O2 Flow Rate FiO2 06/25/17 08:20 90 158/82 06/25/17 04:00 96.5 18 99 Room Air I&O- Last 24 Hours up to 6 AM 06/26/17 06:00 Output Total 200 ml Balance -200 ml Laboratory Data 24H LABS Laboratory Tests 2 06/24/17 11:34: Bedside Glucose (Misc Panel) 217H 06/24/17 17:01: Bedside Glucose (Misc Panel) 162H 06/24/17 19:47: Bedside Glucose (Misc Panel) 159H 06/25/17 05:37: Nucleated Red Blood Cells % (auto) 0.0, Prothrombin Time 37.1H, Prothromb Time International Ratio 3.53, Anion Gap 6L, Glomerular Filtration Rate 54.1, Blood Urea Nitrogen 31H, Creatinine 1.10H, Sodium Level 139, Potassium Level 4.3, Chloride Level 98, Carbon Dioxide Level 35H, Calcium Level 9.1, Aspartate Amino Transf (AST/SGOT) 59H, Alanine Aminotransferase (ALT/SGPT) 151H, Alkaline Phosphatase 201H, Total Bilirubin 0.9, Total Protein 6.2L, Albumin 3.2, Magnesium Level 2.2, Albumin/Globulin Ratio 1.07 CBC/BMP Laboratory Tests 06/25/17 05:37 Red Blood Count 3.85 L, Mean Corpuscular Volume 94.0, Mean Corpuscular Hemoglobin 30.9, Mean Corpuscular Hemoglobin Concent 32.9, Red Cell Distribution Width 19.9 H, Calcium Level 9.1, Aspartate Amino Transf (AST/SGOT) 59 H, Alanine Aminotransferase (ALT/SGPT) 151 H, Alkaline Phosphatase 201 H, Total Bilirubin 0.9, Total Protein 6.2 L, Albumin 3.2 Microbiology Microbiology 06/21/17 Blood Culture - Preliminary, Resulted No Growth after 72 hours. All specime... 06/21/17 Blood Culture - Preliminary, Resulted No Growth after 72 hours. All specime... 06/22/17 Gram Stain - Final, Complete 06/22/17 Sputum Culture - Final, Complete 06/21/17 Respiratory Virus Panel (PCR) ([facility]) - Final, Complete Parainfluenza 4 (Piv4) ELIGIO MEDINA MD Jun 25, 2017 08:41
[2017-06-25] MEDS ORDERED: BISOPROLOL FUMARATE 10 MG TAB PO SCH ×2 (09:00→10:01)
[2017-06-25] MEDS: BREO ELLIPTA 200-25MCG/INH (PATIENT'S OWN MED) INH SCH (09:01)
[2017-06-25] MEDS: WARFARIN SOD 7.5 MG TAB PO SCH (16:56)
[2017-06-25] MEDS ORDERED: BISOPROLOL FUMARATE 5 MG TAB PO ONE ×2 (20:00→21:00)
[2017-06-25] MEDS: GABAPENTIN 400 MG CAP PO SCH (20:08)
[2017-06-25] MEDS: CETIRIZINE (ZyrTEC) 10 MG TAB PO SCH (20:09)
[2017-06-25] MEDS: valACYclovir HCL 500 MG TAB PO SCH (20:09)
[2017-06-25] MEDS ORDERED: METOPROLOL 5 MG/5 ML VIAL IV STA (21:10)
[2017-06-26] VITALS (9 sets, daily range): BP systolic 108–138; BP diastolic 68–84
--- NOTE | 2017-06-26 01:38 | IPNPDOC ---
Text Note Date of Service The patient was seen on 06/26/17. NOTE Checked in on pt. Pt is resting comfortably and asleep. Woke pt up, asked if anything was bothering her. She replied "no." Asked if anything had been bothering her before, she said "I was a little hot" and it was suggested to remove her blanket. Nurse was present during this encounter. On tele monitor, Pt's vitals were observed for a few minutes, and pt at baseline ranges from 120s-140s, with a read in the 150/160 once every strip. Pt is asymptomatic and denies being symptomatic before. Per discussion with Cardiology & Attending, will continue monitoring as pt is asymptomatic after Bisoprolol 5mg & Metoprolol 5mg have already been given tonight. Plan of care was discussed with staff on different occasions. Assessed pt again at bedside with Dr. Ochoa. Pt again stated she feels fine, and she removed her O2. Pt was encouraged to keep mask on, and plan was discussed with team that patient is asymptomatic, and not using her mask, which contributes to her heart rate elevations. It was reported pt's HR daniele ~180s at times, pt still asymptomatic, and vitals stable, and another Metoprolol 5mg was ordered. VS,Fishbone, I+O VS, Fishbone, I+O Laboratory Tests 06/25/17 05:37 Red Blood Count 3.85 L, Mean Corpuscular Volume 94.0, Mean Corpuscular Hemoglobin 30.9, Mean Corpuscular Hemoglobin Concent 32.9, Red Cell Distribution Width 19.9 H, Calcium Level 9.1, Aspartate Amino Transf (AST/SGOT) 59 H, Alanine Aminotransferase (ALT/SGPT) 151 H, Alkaline Phosphatase 201 H, Total Bilirubin 0.9, Total Protein 6.2 L, Albumin 3.2 Vital Signs Date Time Temp Pulse Resp B/P (MAP) Pulse Ox O2 Delivery O2 Flow Rate FiO2 06/25/17 23:59 96.8 116 18 124/70 (88) 96 NIPPV (BIPAP/CPAP) GME ATTESTATION GME ATTESTATION My faculty preceptor for this patient encounter was physically present during the encounter and was fully available. All aspects of the patient interview, examination, medical decision making process, and medical care plan development were reviewed and approved by the faculty preceptor. The faculty preceptor is aware and concurs with the plan as stated in the body of this note and will attest to such by his/her cosignature. ATTENDING NOTE Agree with document above with exception that patient removed CPAP mask, Not O2 ISATU SEQUEIRA DO Jun 26, 2017 01:38 SCOTTY CASTRO MD Jun 27, 2017 20:53
[2017-06-26] MEDS ORDERED: METOPROLOL 5 MG/5 ML VIAL IV STA (03:58)
[2017-06-26 05:43] LABS: MEAN CORPUSCULAR HEMOGLOBIN 30.9 pg (27.0-33.0); MEAN CORPUSCULAR HGB CONC 32.8 g/dl (32.0-36.5); MEAN CORPUSCULAR VOLUME 94.2 fl (80.0-96.0); PLATELET COUNT, AUTOMATED 245 10^3/uL (150-450); RED CELL DISTRIBUTION WIDTH 20.2 % (11.5-14.5); WHITE BLOOD COUNT 11.3 10^3/uL (4.0-10.0)
[2017-06-26 05:49] LABS: INR 2.69
[2017-06-26 05:55] LABS: ALBUMIN 2.8 GM/DL (3.2-5.2); ALBUMIN/GLOBULIN RATIO 0.88 (1.00-1.93); BILIRUBIN,TOTAL 0.8 MG/DL (0.2-1.0); CALCIUM LEVEL 8.2 MG/DL (8.5-10.1); CREATININE FOR GFR 1.08 MG/DL (0.55-1.02); GLOMERULAR FILTRATION RATE 55.3 (>51); MAGNESIUM LEVEL 2.2 MG/DL (1.8-2.4); POTASSIUM SERUM 4.1 MEQ/L (3.5-5.1)
[2017-06-26] MEDS: NYSTATIN 500,000 U/5 ML SUSP UDC SS SCH ×4 (06:34→17:33)
[2017-06-26] MEDS: HumaLOG INSULIN (NovoLOG) PER UNIT SC SCH ×4 (07:24→20:39)
[2017-06-26] MEDS: BREO ELLIPTA 200-25MCG/INH (PATIENT'S OWN MED) INH SCH (08:06)
[2017-06-26] MEDS: VERAPAMIL 40 MG TAB PO SCH ×3 (08:54→20:32)
[2017-06-26] MEDS: SPIRONOLACTONE 12.5MG PER 1/2 TABLET PO SCH (08:54)
[2017-06-26] MEDS: PANTOPRAZOLE 20 MG TAB PO SCH (08:55)
[2017-06-26] MEDS: BISOPROLOL FUMARATE 5 MG TAB PO SCH (08:55)
[2017-06-26] MEDS: SENOKOT S TAB PO SCH ×2 (08:55→20:31)
[2017-06-26] MEDS: BENZONATATE 100 MG CAP PO SCH ×3 (08:55→20:31)
[2017-06-26] MEDS: GABAPENTIN 300 MG CAP PO SCH (08:55)
[2017-06-26] MEDS: PRAVASTATIN 20 MG TAB PO SCH (08:55)
[2017-06-26] MEDS: predniSONE 20 MG TAB PO SCH (08:56)
[2017-06-26] MEDS: MONTELUKAST 10 MG TAB PO SCH (08:56)
[2017-06-26] MEDS: FUROSEMIDE 40 MG TAB PO SCH ×2 (08:56→16:44)
[2017-06-26] MEDS: guaiFENesin ER 600 MG TAB PO SCH ×2 (08:56→20:31)
[2017-06-26] MEDS: DOCUSATE SODIUM 100 MG CAP PO SCH ×2 (08:56→20:31)
[2017-06-26] MEDS ORDERED: BISOPROLOL FUMARATE 10 MG TAB PO SCH (09:00)
[2017-06-26] MEDS ORDERED: DIGOXIN INJ 0.5 MG/2 ML AMP (J1160) IV ONE (11:00)
[2017-06-26] MEDS ORDERED: DIGOXIN 0.25 MG TAB PO ONE ×3 (11:15→20:00)
--- NOTE | 2017-06-26 12:06 | IPNPDOC ---
Subjective Date Seen The patient was seen on 06/26/17. Subjective Chief Complaint/HPI The patient is a 61-year-old female admitted with a reason for visit of A Fib With Rapid Ventricular Response. Events since last encounter patient does not have any complaints, no SOB , no palpitation , no abdominal pain , no nausea or vomiting or diarrhea. Objective Physical Examination General Exam: Positive: Alert, Cooperative, No Acute Distress Eye Exam: Positive: PERRLA, Conjunctiva & lids normal, EOMI, Negative: Sclera icteric ENT Exam: Positive: Atraumatic, Mucous membr. moist/pink, Pharynx Normal Neck Exam: Positive: Supple, Negative: JVD, thyromegaly Chest Exam: Positive: Clear to auscultation, Diminished Heart Exam: Positive: Tachycardic, Irregular Rhythm, Normal S1, Normal S2, Other (metallic click), Negative: Gallops, Murmurs, Rubs Telemetry: Positive: Atrial fibrillation Abdomen Exam: Positive: Normal bowel sounds, Soft, Negative: Tenderness, Hepatospenomegaly Extremity Exam: Positive: Edema Assessment /Plan Problems (1) Atrial fibrillation with rapid ventricular response Status: Acute Problem Text: A FIB with rvr most probably precipitated by respiratory viral infection will aim for rate control rather than rhythm control . on verapamil and bisoprolol doses have been increased yesterday Today will load with digoxin. (2) Parainfluenza infection Status: Resolved (3) H/O mitral valve replacement with mechanical valve Status: Chronic Problem Text: MVR in 1988 due to mitral stenosis on coumadin IN elevated today , will hold 1 dose and start with 7.5 mg daily from tomorrow. (4) Asthma Status: Chronic Problem Text: continue breo, duonebs prn , prednisone, singulair. (5) History of intracerebral hemorrhage without residual deficit Status: Resolved Problem Text: around 2005- due to trauma. resolved after reversion of coumadin. (6) History of CVA (cerebrovascular accident) without residual deficits Status: Resolved (7) Dementia Status: Chronic (8) Hyperlipidemia Status: Chronic Problem Text: continue pravastatin (9) Hypertension Status: Chronic (10) Pulmonary hypertension Status: Chronic (11) Congestive heart failure Status: Acute Response to Treatment: Improving Problem Text: will continue with lasix and spironolactone. (12) Transaminitis Status: Acute Response to Treatment: Improving Problem Text: Acute worsening possibly due to congestive hepatopathy. i expect it to improve with improvement in her heart rate and resolution of her chf. She does have history of chronic mild elevation of LFTS from 2007 . This is possibly due to DOUGLAS. will check hepatitis panel. (13) CLARISA (acute kidney injury) Status: Acute Response to Treatment: Improving Problem Text: most probably cardiorenal form acute CHF. (14) Hyperglycemia Status: Acute Problem Text: most probably steroid related. A1c was 5.8 Plan/VTE VTE Prophylaxis Ordered?: Yes VS, I&O, 24H, Fishbone Vital Signs/I&O Vital Signs Date Time Temp Pulse Resp B/P (MAP) Pulse Ox O2 Delivery O2 Flow Rate FiO2 06/26/17 11:51 140 06/26/17 08:55 114/68 06/26/17 08:07 96.6 20 100 Room Air I&O- Last 24 Hours up to 6 AM 06/27/17 06:00 Intake Total 480 ml Output Total 625 ml Balance -145 ml Laboratory Data 24H LABS Laboratory Tests 2 06/25/17 16:46: Bedside Glucose (Misc Panel) 181H 06/25/17 22:09: Bedside Glucose (Misc Panel) 145H 06/26/17 05:19: Nucleated Red Blood Cells % (auto) 0.0, Prothrombin Time 29.7H, Prothromb Time International Ratio 2.69, Anion Gap 6L, Glomerular Filtration Rate 55.3, Blood Urea Nitrogen 28H, Creatinine 1.08H, Sodium Level 141, Potassium Level 4.1, Chloride Level 101, Carbon Dioxide Level 34H, Calcium Level 8.2L, Aspartate Amino Transf (AST/SGOT) 46H, Alanine Aminotransferase (ALT/SGPT) 134H, Alkaline Phosphatase 167H, Total Bilirubin 0.8, Total Protein 6.0L, Albumin 2.8L, Magnesium Level 2.2, Albumin/Globulin Ratio 0.88L CBC/BMP Laboratory Tests 06/26/17 05:19 Red Blood Count 3.82 L, Mean Corpuscular Volume 94.2, Mean Corpuscular Hemoglobin 30.9, Mean Corpuscular Hemoglobin Concent 32.8, Red Cell Distribution Width 20.2 H, Calcium Level 8.2 L, Aspartate Amino Transf (AST/SGOT ) 46 H, Alanine Aminotransferase (ALT/SGPT) 134 H, Alkaline Phosphatase 167 H, Total Bilirubin 0.8, Total Protein 6.0 L, Albumin 2.8 L Microbiology Microbiology 06/21/17 Blood Culture - Preliminary, Resulted No Growth after 72 hours. All specime... 06/21/17 Blood Culture - Preliminary, Resulted No Growth after 72 hours. All specime... 06/22/17 Gram Stain - Final, Complete 06/22/17 Sputum Culture - Final, Complete 06/21/17 Respiratory Virus Panel (PCR) ([facility]) - Final, Complete Parainfluenza 4 (Piv4) ELIGIO MEDINA MD Jun 26, 2017 12:06
--- NOTE | 2017-06-26 13:12 | IPN ---
DATE: 06/26/2017 TIME: 12:[address] Weir providing weekend coverage for the patient's attending [employer] sales consultant, Dr. Yoni Edouard. SUBJECTIVE: The patient reports mild exertional dyspnea when doing low levels of activity such as walking from the bed to the bathroom. No palpitations. No orthopnea or paroxysmal nocturnal dyspnea (PND). No chest pain or chest discomfort. She is not aware of any edema in her legs. PHYSICAL EXAMINATION: Not in any respiratory or psychologic distress. Weight 89.2 kilograms. Net negative 1100 mL for the 24 hours of 06/25/2017. Pulse 140 (irregularly irregular), blood pressure 114/68, oxygen saturation 100% on room air. Temperature 96.6. Jugular venous pulsations were at 5 cm. Heart sounds were variable. [place] mechanical S1. Variable S2. No S3 appreciated. No diastolic murmurs appreciated. Grade 1 systolic ejection murmur right second interspace. Respiratory expansion effort was good. No crackles or wheezes. Abdomen was soft and nontender with normal bowel sounds. Abdomen was obese. Trace pitting edema in both legs. Speech was normal. Mood and affect appeared normal. Laboratory work 06/26/2017 was reviewed: WBC 11.3, hemoglobin 11.8, hematocrit 36.0, platelets 245. PT/INR 2.69. Sodium 141, potassium 4.1, chloride 101, CO2 34, BUN 28, creatinine 1.08, estimated GFR 55.3, glucose 99, magnesium 2.2, albumin 2.8. Total protein low at 6.0. ASSESSMENT/PLAN: 1. Paroxysmal atrial fibrillation. Patient continues to remain in atrial fibrillation and intermittently rapid ventricular response despite presence of beta damaris and verapamil. Recommend rate control approach because of moderate left atrial dilatation (5.0 cm) combined with mitral mechanical prosthesis dysfunction (mild-moderate mitral stenosis). I have added digoxin 0.25 mg by mouth times three doses to be received today and this is in addition to 0.25 mg IV received earlier today. The chronic maintenance dose will be 0.125 mg by mouth daily. Continue warfarin to keep PT/INR 3.5 - 4.5. Continue verapamil 120 mg three times a day and continue bisoprolol 15 mg daily. 2. Status post mechanical mitral valve replacement. Recent echocardiogram Doppler reported mild-moderate mitral stenosis. Recommend infective endocarditis prophylaxis prior to dental procedures likely to produce transient bacteremia. Maintain PT/INR 2.5 - 3.5. 3. Mixed hyperlipidemia. Continue DASH diet and pravastatin. 4. Diastolic heart failure (acute on chronic). Patient is diuresing well and is showing progressive improvement in renal function. She appears to be slightly decompensated. Continue IV furosemide. Continue efforts to try to obtain heart rate control as described above.
[2017-06-26] MEDS: WARFARIN SOD 7.5 MG TAB PO SCH (16:44)
[2017-06-26] MEDS: valACYclovir HCL 500 MG TAB PO SCH (20:31)
[2017-06-26] MEDS: GABAPENTIN 400 MG CAP PO SCH (20:31)
[2017-06-26] MEDS: CETIRIZINE (ZyrTEC) 10 MG TAB PO SCH (20:31)
[2017-06-26] MEDS ORDERED: MICONAZOLE-7 VAGINAL 2% CREAM 47.7 GM PV SCH (21:00)
[2017-06-27 04:00] VITALS: BP 129/71
[2017-06-27] MEDS: NYSTATIN 500,000 U/5 ML SUSP UDC SS SCH ×2 (05:01)
[2017-06-27 05:23] LABS: MEAN CORPUSCULAR HEMOGLOBIN 30.7 pg (27.0-33.0); MEAN CORPUSCULAR HGB CONC 32.7 g/dl (32.0-36.5); MEAN CORPUSCULAR VOLUME 93.9 fl (80.0-96.0); PLATELET COUNT, AUTOMATED 295 10^3/uL (150-450); WHITE BLOOD COUNT 12.7 10^3/uL (4.0-10.0)
[2017-06-27 05:35] LABS: INR 3.15
[2017-06-27 05:43] LABS: ALBUMIN 2.8 GM/DL (3.2-5.2); ALBUMIN/GLOBULIN RATIO 0.76 (1.00-1.93); BILIRUBIN,TOTAL 0.7 MG/DL (0.2-1.0); CREATININE FOR GFR 1.02 MG/DL (0.55-1.02); POTASSIUM SERUM 3.4 MEQ/L (3.5-5.1); TOTAL PROTEIN 6.5 GM/DL (6.4-8.2)
[2017-06-27 08:11] VITALS: BP 164/102
--- NOTE | 2017-06-27 08:41 | IPN ---
DATE: 06/27/2017 Mrs. Corrales tells me that she is feeling better and she would like to go home. She says that her dyspnea is much better and she no longer has sensation of palpations. Over the long weekend since I left on Tuesday there was a total change of plan, I initially thought that we will cardiovert patient after loading her with amiodarone, but Dr. Weir decided to pursue rate control strategy after the echocardiogram revealed a component of mitral stenosis and a severe left atrial enlargement. She was given progressively higher doses of beta blockers and then also was added verapamil and eventually digoxin after the amiodarone was stopped. It turns out that she has not received a dose of verapamil for almost 48 hours because her blood pressure was not significantly high. Her heart rate was previously very high until this morning when it looked like that the digoxin load was completed and her heart rate is now around 90-100 beats per minute and does not get exceedingly high with ambulation. VITAL SIGNS: Blood pressure 129/71, heart rate 91, she is afebrile. Saturation is 97% on room air. Her fluid balance has been consistently negative over days, but weight is 90.4 kilograms, this is actually not significantly changed since admission. She is alert, oriented and appropriate. Her jugular venous pulse (JVP) is not up, lungs sound reasonably clear to auscultation. I do not appreciate any crackles or wheezing. Heart exam reveals irregular rhythm, there are metallic sounds best heart in the precardium. I do not appreciate any murmur as such. Abdomen is soft, nontender. Extremities are free of edema. Neurologically she is intact. LABORATORY: Basic metabolic panel reveals potassium 3.4, BUN is 24, creatinine is 1.0, GFR is 59. Her CBC - hemoglobin 13, hematocrit 39, platelet count 295,000. Her INR is 3.2. ASSESSMENT AND PLAN: Mr. Corrales is a 61-year-old female who is many year after mitral valve replacement with mechanical prosthesis now she had a third bout of atrial fibrillation and was very fast to start with with difficulty reasonable rate controlled has been accomplished on combination essentially high dose of beta damaris and digoxin. Even through she was prescribed also verapamil she really has not received any doses for almost 2 days. Patient would like to go home which I think is appropriate. I will contact Dr. Howard and ask her to see patient if followup within a few days. Ultimately the decision will have to be made whether to pursue more rate control. I think to consider cardioversion under these circumstances is problematic as she probably would be very bradycardiac after converted to sinus mechanism. I believe that in the long run rate control is probably preferable. I spoke with Dr. Lorenzo about this plan.
[2017-06-27] MEDS ORDERED: predniSONE 10 MG TAB PO SCH (09:00)
[2017-06-27] MEDS ORDERED: DIGOXIN 0.125 MG TAB PO SCH (09:00)
[2017-06-27] MEDS: GABAPENTIN 300 MG CAP PO SCH (09:21)
[2017-06-27] MEDS: guaiFENesin ER 600 MG TAB PO SCH (09:21)
[2017-06-27] MEDS: HumaLOG INSULIN (NovoLOG) PER UNIT SC SCH ×2 (09:21→12:05)
[2017-06-27] MEDS: SPIRONOLACTONE 12.5MG PER 1/2 TABLET PO SCH (09:21)
[2017-06-27] MEDS: PRAVASTATIN 20 MG TAB PO SCH (09:22)
[2017-06-27] MEDS: BENZONATATE 100 MG CAP PO SCH (09:22)
[2017-06-27] MEDS: PANTOPRAZOLE 20 MG TAB PO SCH (09:22)
[2017-06-27] MEDS: DOCUSATE SODIUM 100 MG CAP PO SCH (09:22)
[2017-06-27] MEDS: SENOKOT S TAB PO SCH (09:22)
[2017-06-27] MEDS: MONTELUKAST 10 MG TAB PO SCH (09:22)
[2017-06-27] MEDS: FUROSEMIDE 40 MG TAB PO SCH (09:22)
[2017-06-27 09:23] VITALS: BP 164/102
[2017-06-27] MEDS: BISOPROLOL FUMARATE 5 MG TAB PO SCH (09:23)
[2017-06-27] MEDS ORDERED: PRED10TA2 PO (10:36)
[2017-06-27] MEDS ORDERED: BISO5TAB5 PO (10:36)
[2017-06-27] MEDS ORDERED: DIGO0.12 PO (10:36)
[2017-06-27] MEDS ORDERED: FURO40TA2 PO (10:36)
[2017-06-27] MEDS ORDERED: COUM7.5T PO (10:36)
--- NOTE | 2017-06-27 14:56 | DSES ---
DATE OF ADMISSION: 06/21/2017 DATE OF DISCHARGE: 06/27/2017 PRIMARY CARE PROVIDER: Dr. Faizan Olsen. MUSIC INTERN: Dr. Holloway DISCHARGE DIAGNOSES: Atrial fibrillation with rapid ventricular response. Parainfluenza infection. Acute on chronic diastolic congestive heart failure. Acute transaminase disease possible due to congestive hypertrophy. Acute kidney injury improved. History of mitral valve replacement with mechanical valve on Coumadin. Supratherapeutic INR, Coumadin level dose has been adjusted. Asthma. History of intracerebral hemorrhage without residual deficit. Pulmonary hypertension. Hypertension. Hyperglycemia, steroid related but not diuretic as A1c is normal. Dementia. History of paroxysmal atrial fibrillation. DISCHARGE MEDICATIONS: - bisoprolol 15 mg by mouth daily - digoxin 0.125 mg by mouth daily - Lasix 40 mg by mouth twice a day - prednisone tapering course 30 mg for 2 days, followed by 20 mg for 3 days, then 10 mg for 3 days, then stop. - Coumadin 7.5 by mouth daily - acetaminophen 1000 by mouth every 6 hours as needed pain - albuterol sulfate MDI two puffs inhalation as needed shortness of breath. - vitamin E 400 units by mouth daily - calcium and vitamin D one tablet by mouth daily - cetirizine 10 mg by mouth at bedtime - citalopram 40 mg by mouth daily - Colace 100 mg by mouth twice a day - donepezil 10 mg by mouth at bedtime - Breo Ellipta 200/25 one puff inhalation daily - gabapentin 600 mg in the morning and 1200 mg at bedtime - guaifenesin 400 mg by mouth as needed congestion - Singular 10 mg by mouth daily - [place] 3 polyunsaturated fatty acid two capsules by mouth twice a day - pravastatin 40 mg by mouth daily - rabeprazole 20 mg by mouth daily - spironolactone 12.5 mg by mouth daily - valacyclovir 500 mg by mouth at bedtime - vitamin B complex one tablet by mouth twice a day HOSPITAL COURSE: This is a 61-year-old female who presented to the hospital with increasing shortness of breath and palpitations going on for about 1 week. The patient initially started with cough/cold congestion with productive yellow sputum and chills with subjective fever followed by increasing shortness of breath. In the emergency room, the patient was found to have atrial fibrillation with rapid ventricular response as well as parainfluenza, upper respiratory tract infection. The patient was also noted to have acute asthma exacerbation thought to be related to the upper respiratory tract infection. The patient was started on nebulizations, steroids. She was started on rate control medications for atrial fibrillation. She did have a history of cardioversion back in January for when she was in atrial fibrillation. However, in this admission, the patient had an echo done which showed dilated left atrium, abnormal morphology of the cardiac valve, so it was felt that the patient is not a good candidate for cardioversion. The voltmeter operator decided to continue with rate control. The patient was started on bisoprolol also verapamil, however, with verapamil high doses, blood pressure was dropping, so she could not get all of the doses. The rate was not well controlled. Subsequently, the patient was loaded with digoxin. After that, her heart rate became controlled. At present her heart rate is mostly between 90 to 110. During the hospitalization, it was noted that the patient's liver function tests and transaminases are elevated, which was thought to be due to congestive hypertrophy. The patient was also started on Lasix twice a day for congestive heart failure. The patient responded well to treatment . Her shortness of breath improved. Her transaminases were also improving. The patient was also in acute kidney injury on admission. After correction of her fluid status and treatment of her congestive heart failure, and her atrial fibrillation rate control, the patient's kidney functions also improved. On the day of discharge, the patient did not have any complaints. She was comfortable. Vitals stable and functioning at baseline. PHYSICAL EXAMINATION: VITAL SIGNS: Temperature 97.2, pulse 92, respiratory rate 19, blood pressure 164/102, pulse oximetry 94% in room air. GENERAL: The patient was alert, oriented times three sitting up in bed in no acute distress. HEENT: Normocephalic, atraumatic. Moist mucous membranes. Anicteric eyes. CHEST: Clear to auscultation. CARDIOVASCULAR: S1, S2 irregular. No rub, murmur, or gallop. ABDOMEN: Soft, nontender. Bowel sounds present. EXTREMITIES: No edema. LABORATORY DATA: WBC 12.7, hemoglobin 13, platelet 295. Sodium 141, potassium 3.4 replaced, chloride 101, bicarbonate 34, BUN 24, creatinine 1, calcium 8, AST 42, ALT 120, alkaline phosphatase 177, albumin 2.8. INR 3.1. Blood cultures: No growth. Sputum culture: No growth. Chest x-ray showed cephalization. Prior median sternotomy. Evidence of left atrial enlargement. Otherwise, no active disease. Echocardiogram showed normal left ventricular size and ejection fraction of 60-65%. Mild to moderate enlargement of the left atrium. Mildly calcified aortic valve with minimally restrictive leaflet motion. Prosthetic valve is not in mitral valve position. Not well visualized because of calcifications. The inferior vena cava was mildly enlarged. Prosthetic valve noted in the mitral valve position with mild to moderate stenosis but was not well visualized. Transesophageal echocardiogram was recommended. DISPOSITION: The patient is discharged home in stable condition. DISCHARGE INSTRUCTIONS: The patient to followup with Dr. Holloway in 1-2 weeks. Patient to followup with primary care provider in 1 week. Diet as tolerated. Activity as tolerated.
== END 2017-06-27 13:06 | disposition home or self-care (01) | DRG 201 ==
LOC: M ED 11:55 → M ED INP 17:57 → M ICU 20:13 → M PCU 06-23 20:09
PROVIDERS: ADMIT Hospitalist; ATTEND Internal Medicine Nephrology
DX: I48.0 Paroxysmal atrial fibrillation (principal); I50.33 Acute on chronic diastolic (congestive) heart failure; N17.9 Acute kidney failure, unspecified; I27.20 Pulmonary hypertension, unspecified; J45.901 Unspecified asthma with (acute) exacerbation; F03.90 Unspecified dementia, unspecified severity, without behavioral disturbance, psychotic disturbance, mood disturbance, and anxiety; I11.0 Hypertensive heart disease with heart failure; Z95.2 Presence of prosthetic heart valve; K76.1 Chronic passive congestion of liver; E78.2 Mixed hyperlipidemia; E66.9 Obesity, unspecified; F32.9 Major depressive disorder, single episode, unspecified; R73.9 Hyperglycemia, unspecified; B34.8 Other viral infections of unspecified site; J06.9 Acute upper respiratory infection, unspecified; Z79.01 Long term (current) use of anticoagulants; Z87.891 Personal history of nicotine dependence; Z79.51 Long term (current) use of inhaled steroids; Z79.899 Other long term (current) drug therapy; Z86.73 Personal history of transient ischemic attack (TIA), and cerebral infarction without residual deficits; Z68.36 Body mass index [BMI] 36.0-36.9, adult

== ENCOUNTER → 2017-06-30 | Outpatient (REF) | payer BC ==
[~2017-06-30] MED LIST changes: +ACET50TAOT PO; +AUGM875T28 PO; +BISO5TAB5 PO; +COUM1TAB19 PO; +DIGO0.12 PO; +FURO40TA2 PO; +GUAI400T6 PO; +MONT10TA2 PO; +PRAV40TA2 PO; +PRED10TA2 PO; +ZYRT10CA PO
[2017-06-30 16:07] LABS: INR 5.44
== END ==
LOC: M LABDRWAD 15:39
PROVIDERS: ATTEND Internal Medicine Cardiovascular Disease
DX: I34.9 Nonrheumatic mitral valve disorder, unspecified (principal)

== ENCOUNTER → 2017-07-06 | Outpatient (REF) | payer BC ==
[2017-07-06 12:34] LABS: MEAN CORPUSCULAR HGB CONC 32.4 g/dl (32.0-36.5); MEAN CORPUSCULAR VOLUME 95.5 fl (80.0-96.0); PLATELET COUNT, AUTOMATED 295 10^3/uL (150-450); RED CELL DISTRIBUTION WIDTH 19.8 % (11.5-14.5); WHITE BLOOD COUNT 9.3 10^3/uL (4.0-10.0)
[2017-07-06 12:37] LABS: INR 3.8
[2017-07-06 13:04] LABS: CALCIUM LEVEL 8.9 MG/DL (8.5-10.1); CREATININE FOR GFR 1.24 MG/DL (0.55-1.02); DIGOXIN LEVEL 0.9 NG/ML (0.5-2.0); GLOMERULAR FILTRATION RATE 47.1 (>51); POTASSIUM SERUM 4.1 MEQ/L (3.5-5.1)
== END ==
LOC: M LABDRWAD 12:03 → M LAB REF 12:13
PROVIDERS: ATTEND Internal Medicine Cardiovascular Disease
DX: I48.0 Paroxysmal atrial fibrillation (principal); I34.9 Nonrheumatic mitral valve disorder, unspecified; I10 Essential (primary) hypertension

== ENCOUNTER → 2017-08-22 | Outpatient (CLI) | payer BC | LOC: M ADAMS 16:32 | DX: R06.00 Dyspnea, unspecified (principal); I51.7 Cardiomegaly | CPT/HCPCS: 71046 ==

== ENCOUNTER → 2017-08-30 | Outpatient (REF) | payer BC ==
[2017-08-30 13:40] LABS: ANION GAP 6 MEQ/L (8-16); BLOOD UREA NITROGEN 21 MG/DL (7-18); CALCIUM LEVEL 8.4 MG/DL (8.8-10.2); CARBON DIOXIDE LEVEL 33 MEQ/L (21-32); CHLORIDE LEVEL 103 MEQ/L (98-107); CREATININE FOR GFR 1.18 MG/DL (0.55-1.30); DIGOXIN LEVEL 0.7 NG/ML (0.5-2.0); GLOMERULAR FILTRATION RATE 49.7 (>45); GLUCOSE, FASTING 167 MG/DL (70-100); NT-PRO BNP 1575 PG/ML (<125); POTASSIUM SERUM 4.4 MEQ/L (3.5-5.1); SODIUM LEVEL 142 MEQ/L (136-145)
== END ==
LOC: M LABDRWAD 12:26
DX: I50.9 Heart failure, unspecified (principal); R42 Dizziness and giddiness; I48.0 Paroxysmal atrial fibrillation
CPT/HCPCS: 80162

== ENCOUNTER → 2017-09-15 | Outpatient (CLI) | payer BC | LOC: M RAD 17:22 | DX: R60.9 Edema, unspecified (principal); M79.662 Pain in left lower leg | CPT/HCPCS: 93971 ==

== ENCOUNTER → 2017-09-20 | Outpatient (REF) | payer BC ==
[2017-09-20 13:06] LABS: ANION GAP 7 MEQ/L (8-16); BLOOD UREA NITROGEN 21 MG/DL (7-18); CALCIUM LEVEL 9.5 MG/DL (8.8-10.2); CARBON DIOXIDE LEVEL 33 MEQ/L (21-32); CHLORIDE LEVEL 102 MEQ/L (98-107); GLOMERULAR FILTRATION RATE > 60.0 (>45); GLUCOSE, FASTING 113 MG/DL (70-100); POTASSIUM SERUM 4.2 MEQ/L (3.5-5.1); SODIUM LEVEL 142 MEQ/L (136-145)
[2017-09-20 13:24] LABS: ESTIMATED AVERAGE GLUCOSE 108 MG/DL (60-110); HEMOGLOBIN A1c 5.4 %
== END ==
LOC: M LABDRWAD 12:21
DX: R73.9 Hyperglycemia, unspecified (principal); R60.9 Edema, unspecified; R06.02 Shortness of breath
CPT/HCPCS: 83036

== ENCOUNTER → 2018-02-15 | Outpatient (CLI) | payer BC ==
[2018-02-15 13:13] LABS: FREE T4 0.86 NG/DL (0.76-1.46)
[2018-02-15 13:13] LABS: DIGOXIN LEVEL 0.9 NG/ML (0.5-2.0)
== END ==
LOC: M ADAMS 10:59
DX: I48.0 Paroxysmal atrial fibrillation (principal)
CPT/HCPCS: 80162

== ENCOUNTER → 2018-03-20 | Outpatient (CLI) | payer BC | LOC: M WHC 08:20 | DX: Z12.31 Encounter for screening mammogram for malignant neoplasm of breast (principal) ==

== ENCOUNTER → 2018-06-08 | Outpatient (REF) | payer BC ==
[2018-06-08 19:33] LABS: INR 1.69; PROTHROMBIN TIME 20.2 SECONDS (12.1-14.4)
== END ==
LOC: M LABDRAW1 19:07
DX: I48.0 Paroxysmal atrial fibrillation (principal); I34.9 Nonrheumatic mitral valve disorder, unspecified
CPT/HCPCS: 85610

== ENCOUNTER → 2018-08-15 | Outpatient (REF) | payer BC ==
[~2018-08-15] MED LIST changes: +ACET500T15 PO; -ACET50TAOT PO; +CYCL5TAB PO; +DILT240C47; -GABA600T PO; +GABA600T4 PO; -GUAI400T6 PO; +GUAI400T9 PO; +KETO2CR TOP; +KLOR10TA76; -LASI20TA PO; +LASI20TA3 PO; +LOSA25TA14 PO; -LOSA25TA8 PO; +METO1TAB7; +PYRI25TA2 PO; +SPIR-10 PO; -SPIR25TA2 PO; -TOPR25TA PO; +TOPR25TA13 PO; -VALA500T2 PO; +VALA500T5 PO; -VITA25TA PO
[2018-08-15 12:57] LABS: BASO # 0.1 10^3/uL (0.0-0.2); BASO % 0.9 % (0.0-1.0); EOS # 0.4 10^3/uL (0.0-0.50); EOS % 5.3 % (0.0-3.0); HEMATOCRIT 42.7 % (36.0-47.0); HEMOGLOBIN 14.8 g/dl (12.0-15.5); LYMPH # 1.2 10^3/uL (1.5-4.5); LYMPH % 17.7 % (24.0-44.0); MEAN CORPUSCULAR HEMOGLOBIN 31.7 pg (27.0-33.0); MEAN CORPUSCULAR HGB CONC 34.7 g/dl (32.0-36.5); MEAN CORPUSCULAR VOLUME 91.4 fl (80.0-96.0); MONO # 0.7 10^3/uL (0.0-0.8); NEUTROPHILS # 4.5 10^3/uL (1.8-7.7); NEUTROPHILS % 65.8 % (36.0-66.0); PLATELET COUNT, AUTOMATED 262 10^3/uL (150-450); RED BLOOD COUNT 4.67 10^6/uL (4.00-5.40); WHITE BLOOD COUNT 6.8 10^3/uL (4.0-10.0)
[2018-08-15 13:38] LABS: ALBUMIN 3.8 GM/DL (3.2-5.2); BILIRUBIN,TOTAL 0.7 MG/DL (0.2-1.0); CALCIUM LEVEL 9.6 MG/DL (8.8-10.2); CREATININE FOR GFR 1.1 MG/DL (0.55-1.30); DIGOXIN LEVEL 0.9 NG/ML (0.5-2.0); GLOMERULAR FILTRATION RATE 53.8 (>45); POTASSIUM SERUM 4.7 MEQ/L (3.5-5.1); THYROID STIMULATING HORMONE 1.39 uIU/ML (0.358-3.740); TOTAL PROTEIN 7.6 GM/DL (6.4-8.2)
== END ==
LOC: M LABDRAW1 12:30
PROVIDERS: ATTEND Family Medicine
DX: I48.0 Paroxysmal atrial fibrillation (principal); R41.82 Altered mental status, unspecified

== ENCOUNTER → 2018-08-15 | Outpatient (REF) | payer BC ==
[2018-08-15 13:37] LABS: CALCIUM LEVEL 9.7 MG/DL (8.8-10.2); CREATININE FOR GFR 1.07 MG/DL (0.55-1.30); DIGOXIN LEVEL 0.9 NG/ML (0.5-2.0); GLOMERULAR FILTRATION RATE 55.5 (>45); POTASSIUM SERUM 4.6 MEQ/L (3.5-5.1)
== END ==
LOC: M LABDRAW1 11:53
PROVIDERS: ATTEND Internal Medicine Cardiovascular Disease
DX: I48.0 Paroxysmal atrial fibrillation (principal); R53.83 Other fatigue

== ENCOUNTER 2018-08-18 20:53 | Emergency (ER) | payer BC ==
[~2018-08-18] VITALS: Ht 157.5 cm; Wt 79.5 kg
[~2018-08-18 20:53] MED LIST changes: -CYCL5TAB PO; -DILT240C47; -KETO2CR TOP; -KLOR10TA76; -METO1TAB7
[2018-08-18 20:54] VITALS: BP 142/79
[2018-08-18] MEDS ORDERED: KLOR10TA76 (21:01)
[2018-08-18] MEDS ORDERED: METO1TAB7 (21:01)
[2018-08-18] MEDS ORDERED: DILT240C47 (21:01)
--- NOTE | 2018-08-18 23:03 | REPVR ---
EXAM: CT Head Without Contrast EXAM DATE/TIME: 08/18/2018 10:17 PM CLINICAL HISTORY: 63 years old, female; Pain; Headache; Headache not specified; Additional info: Headache/neck pain TECHNIQUE: Axial computed tomography images of the head/brain without contrast. All CT scans at this facility use at least one of these dose optimization techniques: automated exposure control; mA and/or kV adjustment per patient size (includes targeted exams where dose is matched to clinical indication); or iterative reconstruction. COMPARISON: No relevant prior studies available. FINDINGS: Brain: There is a 5 CM in length by 3 CM in thickness area of low density and CSF density left frontal and temporal lobes and left insular cortex. There is extreme atrophy in the sylvian fissure region with severe atrophy in the region of the insular cortex and all consistent with a large area of old stroke. There is a 2.5 CM area of low density anterior right frontal lobe also consistent with an area of old stroke. There is a 3 CM by 1 CM linear area of low density right parietal lobe with large sulci and consistent with an area of old stroke right parietal lobe. Ventricles: There is enlargement of the lateral ventricles especially the left lateral ventricle. Much of this is thought to be due to atrophy especially with the enlargement of the frontal horn of left lateral ventricle abutting the large area of old stroke. Much of the enlargement of the lateral ventricles and third ventricle related to atrophy however communicating type hydrocephalus not excluded and recommend correlation with clinical findings. Would be helpful to obtain old films to compare the size of the lateral ventricles. There is a CT of 21 which I cannot view. Bones/joints: No evidence of fracture. Sinuses: Clear paranasal sinuses. Mastoid air cells: Clear mastoid air cells. Soft tissues: Normal. Vasculature: There is calcification carotid siphon bilaterally consistent with atherosclerotic change. IMPRESSION: 1. Large area of old stroke left insular cortex, frontal lobe and temporal lobe with a large amount of associated atrophy. Prominent area of old stroke right frontal lobe and right parietal lobe. 2. Enlargement of the lateral ventricles greater on the left much of which is thought to be due to atrophy. However communicating type hydrocephalus another consideration and it would be important to correlate this with clinical findings. If the old exams can be obtained they would be of great benefit for comparison of the ventricles. Electronically signed by: Kevin Sun On 08/18/2018 23:03:34 PM
--- NOTE | 2018-08-18 23:12 | REPVR ---
EXAM: CT Cervical Spine Without Contrast EXAM DATE/TIME: 08/18/2018 10:17 PM CLINICAL HISTORY: 63 years old, female; Pain; Neck pain; Additional info: Headache/neck pain TECHNIQUE: Axial computed tomography images of the cervical spine without intravenous contrast. All CT scans at this facility use at least one of these dose optimization techniques: automated exposure control; mA and/or kV adjustment per patient size (includes targeted exams where dose is matched to clinical indication); or iterative reconstruction. Coronal and sagittal reformatted images were created and reviewed. COMPARISON: No relevant prior studies available. FINDINGS: Vertebrae: The cervical vertebra appear in alignment. The facet joints appear in alignment. There is no evidence of fracture. There is very prominent anterior osteophyte formation C5, C6 and C7. The dens appears intact and lateral masses of C1 appear symmetric. Discs/Spinal canal/Neural foramina: There is moderate narrowing of the C5-C6 disc space with moderate posterior osteophyte formation and degenerative changes of the endplates. There is moderate narrowing of the C6-C7 disc space with moderate posterior osteophyte formation and degenerative changes of the endplates. Soft tissues: There is no evidence of soft tissue swelling. Lymph nodes: There are small lymph nodes right and left side of the neck. Lungs: Lung apices are normal. IMPRESSION: Moderate narrowing of the C5-C6 and C6-C7 disc space with moderate posterior disc osteophyte complex and degenerative changes of the endplates. Electronically signed by: Kevin Sun On 08/18/2018 23:11:49 PM
[2018-08-18] MEDS ORDERED: CYCL5TAB PO (23:56)
[2018-08-18] MEDS ORDERED: KETO2CR TOP (23:56)
--- NOTE | 2018-08-20 07:39 | ED PDOC ---
Post-Departure Follow-Up dr santiago faxed formal report of ct head for fu Vladislav Park MD Aug 20, 2018 07:39
--- NOTE | 2018-08-20 07:40 | ED PDOC ---
Post-Departure Follow-Up additionally ct c spine, faxed to Vladislav Davis MD Aug 20, 2018 07:40
== END 2018-08-19 00:05 | disposition home or self-care (01) ==
LOC: M ED 20:53
DX: B35.4 Tinea corporis (principal); S16.1XXA Strain of muscle, fascia and tendon at neck level, initial encounter; X58.XXXA Exposure to other specified factors, initial encounter; Y92.89 Other specified places as the place of occurrence of the external cause; I10 Essential (primary) hypertension; J45.909 Unspecified asthma, uncomplicated; I48.91 Unspecified atrial fibrillation; G47.33 Obstructive sleep apnea (adult) (pediatric); Z79.899 Other long term (current) drug therapy; Z79.01 Long term (current) use of anticoagulants; Z87.891 Personal history of nicotine dependence

== ENCOUNTER → 2018-11-24 | Outpatient (REF) | payer BC ==
[~2018-11-24] MED LIST changes: -CITA20TA4 PO; +CITA20TA6 PO; +CYCL5TAB PO; +DILT240C47; +KETO2CR TOP; +KLOR10TA76; +METO1TAB7; +TOPR25TA PO; -TOPR25TA13 PO
[2018-11-24 14:28] LABS: PROTHROMBIN TIME 52.4 SECONDS (12.1-14.4)
[2018-11-24 15:04] LABS: INR 5.63
== END ==
LOC: M LABDRWAD 12:27
PROVIDERS: ATTEND Internal Medicine Cardiovascular Disease
DX: I48.0 Paroxysmal atrial fibrillation (principal)

== ENCOUNTER → 2018-11-27 | Outpatient (REF) | payer BC ==
[2018-11-27 13:02] LABS: INR 2.06; PROTHROMBIN TIME 23.6 SECONDS (12.1-14.4)
== END ==
LOC: M LABDRWAD 12:13
PROVIDERS: ATTEND Internal Medicine Cardiovascular Disease
DX: I48.0 Paroxysmal atrial fibrillation (principal)

== ENCOUNTER → 2018-12-01 | Outpatient (REF) | payer BC ==
[2018-12-01 13:10] LABS: INR 3.46; PROTHROMBIN TIME 35.6 SECONDS (12.1-14.4)
== END ==
LOC: M LABDRWAD 12:16
PROVIDERS: ATTEND Internal Medicine Cardiovascular Disease
DX: I48.0 Paroxysmal atrial fibrillation (principal)

== ENCOUNTER → 2018-12-06 | Outpatient (CLI) | payer BC ==
--- NOTE | 2018-12-15 09:13 | REP ---
Noncontrast CT study of the chest: Repeat dictation. History: Nicotine dependence. Low-dose screening CT study. Comparison chest CT study is from December 22, 2012. CT findings: The patient is status post mitral valve replacement via median sternotomy. There is mild linear fibrosis in the right middle lobe medially. This is unchanged. There is a 5 mm nodular opacity at the base of the major fissure in the right lower lobe. This perifissural nodule is unchanged. There is a somewhat angular nodular density 6 mm in diameter in the right lower lobe on page 64 of 99 in today's study. This it is unchanged as well from the 2013 study. There is a somewhat ill-defined 6 mm nodule in the left lateral lung base in the lateral pleural angle on page 85 of 99 in today's study. This does not appear to have been present previously. It may be pleuroparenchymal scarring. No other pulmonary nodule is appreciated. Scan is otherwise unremarkable. Impression: New 6 mm nodular opacity in the left lateral pleural angle in the left lower lobe. Stable similar sized nodules on the right. Lung-RADS category [address] probably benign [address] Repeat CT study and 6 months recommended. Electronically Signed by Mj Deluca MD 12/15/2018 06:20 P
== END ==
LOC: M RAD 10:07
PROVIDERS: ATTEND Internal Medicine Pulmonary Disease
DX: R91.1 Solitary pulmonary nodule (principal); Z87.891 Personal history of nicotine dependence

== ENCOUNTER → 2019-02-08 | Outpatient (REF) | payer BC ==
[2019-02-08 13:31] LABS: CHOLESTEROL RISK RATIO 3.043 (<5)
== END ==
LOC: M LABDRWAD 12:08
PROVIDERS: ATTEND Internal Medicine Cardiovascular Disease
DX: E78.00 Pure hypercholesterolemia, unspecified (principal)

== ENCOUNTER → 2019-05-16 | Outpatient (CLI) | payer BC ==
[~2019-05-16] MED LIST changes: -BISO5TAB5 PO; +BISO5TAB9 PO
--- NOTE | 2019-05-17 05:33 | REP ---
Clinical: Follow up abnormal lung field findings. Technique: Axial noncontrast images from the thoracic inlet to the upper abdomen with coronal and sagittal re-formations. Comparison: 12/06/2018, 12/22/2012. Findings: The bilateral lung barrett demonstrate stable mild chronic interstitial changes along with small stable density is less than 5 mm which remain unchanged 10/18/2012. The 6 mm opacity in the lateral left lung base identified on 12/06/2018 has resolved and likely represented small focal area of atelectasis. The current examination demonstrates a small area of opacity in the posterior aspect of the right upper lobe at the level of the wil (images 34-37) which is nonspecific but likely represents transient small infiltrate. No further consolidation, significant nodule or mass. No effusion. No pneumothorax. Tracheobronchial tree is patent. Atherosclerotic changes to the thoracic aorta and coronary arteries noted along with evidence for prior mitral valve repair and median sternotomy. Limited upper abdomen demonstrates normal bilateral adrenal glands and evidence of prior cholecystectomy. Impression: 1. Chronic stable changes. Previously noted 6 mm density in the lateral left lung base has resolved and likely represented small atelectasis. 2. Very subtle small patchy infiltrate in the posterior right upper lobe likely represents transient small infiltrate and 6 - 9 month follow-up may be warranted. Electronically Signed by Jose Alicea MD 05/17/2019 05:25 A
== END ==
LOC: M RAD 08:01
PROVIDERS: ATTEND Internal Medicine Pulmonary Disease
DX: R91.8 Other nonspecific abnormal finding of lung field (principal)

== ENCOUNTER → 2019-05-28 | Outpatient (REF) | payer BC ==
[2019-05-31 00:06] LABS: HPV HYBRID CAPTURE II Negative (Negative)
== END ==
LOC: M SFHCWAGY 09:59
PROVIDERS: ATTEND Nurse Practitioner Family
DX: Z12.4 Encounter for screening for malignant neoplasm of cervix (principal)
CPT/HCPCS: 87624; G0123

== ENCOUNTER → 2019-05-28 | Outpatient (CLI) | payer BC ==
--- NOTE | 2019-05-28 11:10 | REPMRS ---
Patient History The patient states she had a clinical breast exam in 05/2019. Patient is postmenopausal. No known family history of cancer. No Hormone Replacement Therapy 3D TOMOSYNTHESIS WAS PERFORMED. The [facility] lifetime risk for breast cancer is 8.9%. Digital Woman Screen Mammo: May 28, 2019 - Exam #: [id number] Bilateral CC and MLO view(s) were taken. Technologist: Milena Mayorga, Technologist Prior study comparison: March 20, 2018, bilateral digital woman screen mammo performed at [facility]. January 28, 2017, digital woman screen mammo performed at [facility]. FINDINGS: The breast tissue is heterogeneously dense. This may lower the sensitivity of mammography. There has been no change in the appearance of the mammogram from the prior studies. There is a moderate amount of residual fibroglandular tissue which is fairly symmetric. There is no interval development of dominant mass, areas of architectural distortion, or clustered microcalcification typical of malignancy. Assessment: BI-RADS/ACR category 1 mammogram. Negative Mammogram. Recommendation Routine screening mammogram in 1 year (for women over age 40). This mammogram was interpreted with the aid of an FDA-approved computer-aided dectection system. Electronically Signed By: Christopher Posadas MD 05/28/19 [id number]
== END ==
LOC: M WHC 09:02
PROVIDERS: ATTEND Nurse Practitioner Family
DX: Z12.31 Encounter for screening mammogram for malignant neoplasm of breast (principal)

== ENCOUNTER → 2019-06-27 | Outpatient (REF) | payer BC ==
[2019-06-27 11:30] LABS: BASO % 0.8 % (0.0-1.0); EOS # 0.2 10^3/uL (0.0-0.5); HEMATOCRIT 41.7 % (36.0-47.0); LYMPH # 0.9 10^3/uL (1.5-5.0); LYMPH % 18.4 % (24.0-44.0); MEAN CORPUSCULAR HEMOGLOBIN 31.5 pg (27.0-33.0); MEAN CORPUSCULAR HGB CONC 33.6 g/dl (32.0-36.5); MEAN CORPUSCULAR VOLUME 93.7 fl (80.0-96.0); MONO # 0.6 10^3/uL (0.0-0.8); MONO % 11.9 % (0.0-5.0); NEUTROPHILS % 63.5 % (36.0-66.0); PLATELET COUNT, AUTOMATED 254 10^3/uL (150-450); RED BLOOD COUNT 4.45 10^6/uL (4.00-5.40); WHITE BLOOD COUNT 4.8 10^3/uL (4.0-10.0)
[2019-06-27 12:07] LABS: ALBUMIN 3.4 GM/DL (3.2-5.2); BILIRUBIN,TOTAL 0.6 MG/DL (0.2-1.0); CALCIUM LEVEL 8.5 MG/DL (8.8-10.2); CHOLESTEROL RISK RATIO 2.426 (<5); CREATININE FOR GFR 1.02 MG/DL (0.55-1.30); GLOMERULAR FILTRATION RATE 58.7 (>45); POTASSIUM SERUM 3.6 MEQ/L (3.5-5.1); TOTAL PROTEIN 6.6 GM/DL (6.4-8.2)
== END ==
LOC: M LABDRWAD 10:27
PROVIDERS: ATTEND Family Medicine
DX: Z00.00 Encounter for general adult medical examination without abnormal findings (principal)

== ENCOUNTER → 2020-01-24 | Outpatient (REF) | payer BC ==
[~2020-01-24] MED LIST changes: +BISO5TAB14 PO; -BISO5TAB9 PO; -COUM7.5T PO; +COUM7.5T6 PO; -DIGO0.12 PO; +DIGO0.123 PO; -MONT10TA2 PO; +MONT10TA4 PO
[2020-01-24 12:54] LABS: INR 2.81; PROTHROMBIN TIME 29.5 SECONDS (11.8-14.0)
== END ==
LOC: M LABDRWAD 12:27
PROVIDERS: ATTEND Internal Medicine Cardiovascular Disease
DX: I48.0 Paroxysmal atrial fibrillation (principal); Z95.2 Presence of prosthetic heart valve; Z79.01 Long term (current) use of anticoagulants

== ENCOUNTER → 2020-03-27 | Outpatient (REF) | payer BC ==
[2020-03-27 15:07] LABS: BASO # 0.1 10^3/uL (0.0-0.2); BASO % 1.9 % (0.0-1.0); EOS # 0.2 10^3/uL (0.0-0.5); EOS % 4.7 % (0.0-3.0); HEMATOCRIT 36.6 % (36.0-47.0); HEMOGLOBIN 11.3 g/dl (12.0-15.5); LYMPH # 0.8 10^3/uL (1.5-5.0); LYMPH % 17.3 % (24.0-44.0); MEAN CORPUSCULAR HEMOGLOBIN 27.8 pg (27.0-33.0); MEAN CORPUSCULAR HGB CONC 30.9 g/dl (32.0-36.5); MEAN CORPUSCULAR VOLUME 89.9 fl (80.0-96.0); MONO # 0.5 10^3/uL (0.0-0.8); MONO % 10.5 % (0.0-5.0); NEUTROPHILS # 3.2 10^3/uL (1.5-8.5); NEUTROPHILS % 65.4 % (36.0-66.0); PLATELET COUNT, AUTOMATED 273 10^3/uL (150-450); RED BLOOD COUNT 4.07 10^6/uL (4.00-5.40); WHITE BLOOD COUNT 4.9 10^3/uL (4.0-10.0)
[2020-03-27 15:14] LABS: CALCIUM LEVEL 9.3 MG/DL (8.8-10.2); CHOLESTEROL RISK RATIO 2.42 (<5); CREATININE FOR GFR 1.08 MG/DL (0.55-1.30); GLOMERULAR FILTRATION RATE 54.7 (>45); POTASSIUM SERUM 5.1 MEQ/L (3.5-5.1)
== END ==
LOC: M WUC 08:20
PROVIDERS: ATTEND Nurse Practitioner Adult Health
DX: I48.0 Paroxysmal atrial fibrillation (principal); E78.2 Mixed hyperlipidemia

== ENCOUNTER → 2020-08-12 | Outpatient (CLI) | payer BC ==
[~2020-08-12] MED LIST changes: -MONT10TA4 PO; +MONT5TAB2 PO
--- NOTE | 2020-08-12 17:40 | REPMRS ---
Patient History The patient states she had a clinical breast exam in 08/2020 No known family history of cancer. No Hormone Replacement Therapy 3D TOMOSYNTHESIS WAS PERFORMED. The [facility] lifetime risk for breast cancer is 8.3%. Volpara breast density c. Digital Woman Screen Mammo: August 12, 2020 - Exam #: [id number] Bilateral CC and MLO view(s) were taken. Technologist: Josseline Carrillo, Technologist Prior study comparison: May 28, 2019, bilateral digital woman screen mammo performed at [facility]. March 20, 2018, bilateral digital woman screen mammo performed at [facility]. FINDINGS: The breast tissue is heterogeneously dense. This may lower the sensitivity of mammography. There has been no change in the appearance of the mammogram from the prior studies. There is a moderate amount of residual fibroglandular tissue which is fairly symmetric. There is no interval development of dominant mass, areas of architectural distortion, or clustered microcalcification typical of malignancy. Assessment: BI-RADS/ACR category 1 mammogram. Negative Mammogram. Recommendation Routine screening mammogram in 1 year (for women over age 40). This mammogram was interpreted with the aid of an FDA-approved computer-aided dectection system. Electronically Signed By: Christopher Posadas MD 08/12/20 [id number]
== END ==
LOC: M WHC 15:07
PROVIDERS: ATTEND Nurse Practitioner Family
DX: Z12.31 Encounter for screening mammogram for malignant neoplasm of breast (principal)

== ENCOUNTER → 2020-08-25 | Outpatient (REF) | payer BC ==
[~2020-08-25] MED LIST changes: +MONT10TA10 PO; -MONT5TAB2 PO
[2020-08-26 14:25] LABS: ALBUMIN 3.9 GM/DL (3.2-5.2); BILIRUBIN,TOTAL 0.6 MG/DL (0.2-1.0); CALCIUM LEVEL 9.5 MG/DL (8.8-10.2); CHOLESTEROL RISK RATIO 2.737 (<5); CREATININE FOR GFR 1.08 MG/DL (0.55-1.30); FREE T4 0.86 NG/DL (0.76-1.46); GLOMERULAR FILTRATION RATE 54.5 (>45); POTASSIUM SERUM 4.7 MEQ/L (3.5-5.1); THYROID STIMULATING HORMONE 1.2 uIU/ML (0.358-3.740)
[2020-08-26 15:03] LABS: TOTAL 25(OH) VITAMIN D 53.1 NG/ML (30.0-100.0)
[2020-08-26 15:51] LABS: HEMOGLOBIN A1c 4.7 %
== END ==
LOC: M LABDRWAD 12:47
PROVIDERS: ATTEND Nurse Practitioner Family
DX: Z00.00 Encounter for general adult medical examination without abnormal findings (principal)

== ENCOUNTER → 2020-09-30 | Outpatient (REF) | payer BC ==
[2020-09-30 13:27] LABS: CHOLESTEROL RISK RATIO 2.453 (<5)
== END ==
LOC: M LABDRWAD 12:17
PROVIDERS: ATTEND Internal Medicine Cardiovascular Disease
DX: E78.2 Mixed hyperlipidemia (principal)

== ENCOUNTER → 2021-04-08 | Outpatient (CLI) | payer BC ==
--- NOTE | 2021-04-08 16:11 | REP ---
INDICATION: PAIN IN LEFT HAND. COMPARISON: None. TECHNIQUE: Four views FINDINGS: Mild degenerative changes seen throughout the foot. There is moderate joint space narrowing involving the 1st metatarsal phalangeal joint. There is no prominent marginal osteophytosis. There are no marginal erosions. There is no evidence of periarticular osteopenia. There is no acute fracture, dislocation, or subluxation. IMPRESSION: Chronic changes as described above. <Electronically signed by Kevon Delgado > 04/08/21 [id number]
--- NOTE | 2021-04-08 16:11 | REP ---
INDICATION: PAIN IN LEFT HAND. COMPARISON: None. TECHNIQUE: Four views FINDINGS: There is rather symmetric appearing moderate intra digital joint space narrowing without prominent marginal osteophytosis, marginal erosions, or radha periarticular osteopenia. There is no acute fracture, dislocation, or subluxation. IMPRESSION: Early chronic changes as described above. <Electronically signed by Kevon Delgado > 04/08/21 [id number]
[2021-04-08 17:56] LABS: HEMOGLOBIN 8.6 g/dl (12.0-15.5); MEAN CORPUSCULAR HEMOGLOBIN 24.4 pg (27.0-33.0); MEAN CORPUSCULAR HGB CONC 29.7 g/dl (32.0-36.5); MEAN CORPUSCULAR VOLUME 82.4 fl (80.0-96.0); PLATELET COUNT, AUTOMATED 296 10^3/uL (150-450); RED BLOOD COUNT 3.52 10^6/uL (4.00-5.40); WHITE BLOOD COUNT 5.9 10^3/uL (4.0-10.0)
[2021-04-08 18:28] LABS: ALBUMIN 3.6 GM/DL (3.2-5.2); BILIRUBIN,TOTAL 0.6 MG/DL (0.2-1.0); CREATININE FOR GFR 1.09 MG/DL (0.55-1.30); POTASSIUM SERUM 4.8 MEQ/L (3.5-5.1); TOTAL PROTEIN 6.6 GM/DL (6.4-8.2); URIC ACID 6.6 MG/DL (2.6-6.0)
== END ==
LOC: M PLAIMG 14:40 → M PLALAB 14:40
PROVIDERS: ATTEND Nurse Practitioner Family
DX: M79.642 Pain in left hand (principal); M79.672 Pain in left foot

== ENCOUNTER → 2021-04-13 | Outpatient (CLI) | payer BC ==
[~2021-04-13] MED LIST changes: -KLOR10TA76; +POTA-136
[2021-04-13 10:43] LABS: BASO # 0.1 10^3/uL (0.0-0.2); BASO % 0.6 % (0.0-1.0); EOS % 0.1 % (0.0-3.0); HEMATOCRIT 30.4 % (36.0-47.0); HEMOGLOBIN 8.8 g/dl (12.0-15.5); LYMPH # 0.3 10^3/uL (1.5-5.0); LYMPH % 3.6 % (24.0-44.0); MEAN CORPUSCULAR HEMOGLOBIN 24.4 pg (27.0-33.0); MEAN CORPUSCULAR HGB CONC 28.9 g/dl (32.0-36.5); MEAN CORPUSCULAR VOLUME 84.4 fl (80.0-96.0); MONO # 0.2 10^3/uL (0.0-0.8); MONO % 2.5 % (2.0-8.0); NEUTROPHILS # 7.3 10^3/uL (1.5-8.5); NEUTROPHILS % 92.8 % (36.0-66.0); PLATELET COUNT, AUTOMATED 236 10^3/uL (150-450); WHITE BLOOD COUNT 7.9 10^3/uL (4.0-10.0)
[2021-04-13 11:05] LABS: PERCENT SATURATION 6.8 % (13.2-45.0)
== END ==
LOC: M PLALAB 08:25
PROVIDERS: ATTEND Nurse Practitioner Family
DX: D64.9 Anemia, unspecified (principal)

== ENCOUNTER → 2021-07-08 | Outpatient (REF) | payer BC ==
[2021-07-08 13:09] LABS: BASO # 0.1 10^3/uL (0.0-0.2); BASO % 1.3 % (0.0-1.0); EOS # 0.2 10^3/uL (0.0-0.5); EOS % 4.3 % (0.0-3.0); HEMATOCRIT 28.2 % (36.0-47.0); HEMOGLOBIN 9.3 g/dl (12.0-15.5); LYMPH # 0.6 10^3/uL (1.5-5.0); LYMPH % 11.2 % (24.0-44.0); MEAN CORPUSCULAR HEMOGLOBIN 34.6 pg (27.0-33.0); MEAN CORPUSCULAR VOLUME 104.8 fl (80.0-96.0); MONO # 0.6 10^3/uL (0.0-0.8); NEUTROPHILS # 3.8 10^3/uL (1.5-8.5); NEUTROPHILS % 71.5 % (36.0-66.0); PLATELET COUNT, AUTOMATED 268 10^3/uL (150-450); RED BLOOD COUNT 2.69 10^6/uL (4.00-5.40); WHITE BLOOD COUNT 5.4 10^3/uL (4.0-10.0)
[2021-07-08 13:37] LABS: ALBUMIN 3.5 GM/DL (3.2-5.2); BILIRUBIN,TOTAL 0.9 MG/DL (0.2-1.0); CALCIUM LEVEL 9.1 MG/DL (8.8-10.2); CHOLESTEROL RISK RATIO 2.824 (<5); CREATININE FOR GFR 1.03 MG/DL (0.55-1.30); GLOMERULAR FILTRATION RATE 57.6 (>45); POTASSIUM SERUM 4.1 MEQ/L (3.5-5.1); TOTAL PROTEIN 6.8 GM/DL (6.4-8.2)
== END ==
LOC: M LABDRWAD 12:26
PROVIDERS: ATTEND Nurse Practitioner Family
DX: E78.2 Mixed hyperlipidemia (principal); I48.19 Other persistent atrial fibrillation

== ENCOUNTER → 2021-07-10 | Outpatient (CLI) | payer BC ==
--- NOTE | 2021-07-12 19:11 | REP ---
INDICATION: NICOTINE DEPENDENCE COMPARISON: 05/16/2019, 12/06/2018 TECHNIQUE: Axial noncontrast images from the thoracic inlet to the upper abdomen using low-dose lung screening technique (LDCT). FINDINGS: Small subpleural nodule along the lateral aspect of the right major fissure (series 201; image 49) as well as small 5 mm density along the periphery in the right lower lobe (series 201; image 61) represent stable chronic changes. Previously identified small density in the lateral left base as well as the subtle opacity along the posterior aspect of the right upper lobe have resolved and likely represented focal transient atelectasis. No acute consolidation, new suspicious nodule or mass lesion. No effusion. No pneumothorax. Tracheobronchial tree is patent. Mild emphysematous changes are suspected. IMPRESSION: Lung rads category 2. Chronic stable changes. Management recommendations include annual low-dose CT surveillance. <Electronically signed by Jose Alicea > 07/12/21 [id number]
== END ==
LOC: M RAD 09:53
PROVIDERS: ATTEND Nurse Practitioner Adult Health
DX: Z12.2 Encounter for screening for malignant neoplasm of respiratory organs (principal); Z87.891 Personal history of nicotine dependence; R91.8 Other nonspecific abnormal finding of lung field

== ENCOUNTER → 2021-09-23 | Outpatient (REF) | payer BC ==
[~2021-09-23] MED LIST changes: +LOSA25TA13 PO; -LOSA25TA14 PO; -MONT10TA10 PO; +MONT10TA97 PO
[2021-09-23 13:05] LABS: PLATELET COUNT, AUTOMATED 235 10^3/uL (150-450)
[2021-09-23 13:19] LABS: INR 2.96; PROTHROMBIN TIME 31.1 SECONDS (12.7-14.5)
[2021-09-23 13:20] LABS: PARTIAL THROMBOPLASTIN TIME 48.3 SECONDS (25.9-37.0)
== END ==
LOC: M LABDRWAD 12:20
PROVIDERS: ATTEND Physician Assistant
DX: M51.36 Other intervertebral disc degeneration, lumbar region (principal)

== ENCOUNTER → 2021-09-28 | Outpatient (CLI) | payer BC | LOC: M LAB 08:29 | PROVIDERS: ATTEND Physical Medicine & Rehabilitation | DX: Z01.812 Encounter for preprocedural laboratory examination (principal) ==

== ENCOUNTER → 2021-10-28 | Outpatient (CLI) | payer BC ==
[2021-10-28 14:04] LABS: CHOLESTEROL RISK RATIO 2.979 (<5)
== END ==
LOC: M ADAMS 08:55
PROVIDERS: ATTEND Nurse Practitioner Adult Health
DX: E78.2 Mixed hyperlipidemia (principal)

== ENCOUNTER → 2021-12-16 | Outpatient (CLI) | payer BC ==
[2021-12-16 13:21] LABS: INR 1.01; PROTHROMBIN TIME 13.7 SECONDS (12.7-14.5)
== END ==
LOC: M ADAMS 08:42
PROVIDERS: ATTEND Pain Medicine Interventional Pain Medicine
DX: M48.061 Spinal stenosis, lumbar region without neurogenic claudication (principal)

== ENCOUNTER → 2022-01-08 | Outpatient (CLI) | payer BC ==
[2022-01-08 09:24] LABS: INR 0.96; PROTHROMBIN TIME 13.2 SECONDS (12.7-14.5)
== END ==
LOC: M LAB 08:30
PROVIDERS: ATTEND Nurse Practitioner Family
DX: M48.061 Spinal stenosis, lumbar region without neurogenic claudication (principal)

== ENCOUNTER → 2022-02-17 | Outpatient (CLI) | payer BC ==
[2022-02-17 09:35] LABS: INR 1.03; PROTHROMBIN TIME 13.9 SECONDS (12.7-14.5)
== END ==
LOC: M LAB 08:35
PROVIDERS: ATTEND Nurse Practitioner Family
DX: M48.061 Spinal stenosis, lumbar region without neurogenic claudication (principal)

== ENCOUNTER → 2022-03-08 | Outpatient (CLI) | payer BC | LOC: M RAD 10:15 | PROVIDERS: ATTEND Nurse Practitioner Family | DX: M79.603 Pain in arm, unspecified (principal) ==

== ENCOUNTER → 2022-03-09 | Outpatient (CLI) | payer BC ==
[2022-03-09 09:32] LABS: CALCIUM LEVEL 9.5 MG/DL (8.8-10.2); CREATININE FOR GFR 1.04 MG/DL (0.55-1.30); GLOMERULAR FILTRATION RATE 56.8 (>45); POTASSIUM SERUM 4.5 MEQ/L (3.5-5.1)
[2022-03-09 09:33] LABS: INR 3.03; PROTHROMBIN TIME 31.7 SECONDS (12.7-14.5)
[2022-03-09 10:38] LABS: HEMATOCRIT 41.6 % (36.0-47.0); HEMOGLOBIN 14.1 g/dl (12.0-15.5); MEAN CORPUSCULAR HEMOGLOBIN 33.1 pg (27.0-33.0); MEAN CORPUSCULAR HGB CONC 33.9 g/dl (32.0-36.5); MEAN CORPUSCULAR VOLUME 97.7 fl (80.0-96.0); PLATELET COUNT, AUTOMATED 236 10^3/uL (150-450); RED BLOOD COUNT 4.26 10^6/uL (4.00-5.40); WHITE BLOOD COUNT 5.2 10^3/uL (4.0-10.0)
== END ==
LOC: M LAB 08:24
PROVIDERS: ATTEND Internal Medicine Cardiovascular Disease
DX: Z79.01 Long term (current) use of anticoagulants (principal)

== ENCOUNTER → 2022-03-19 | Outpatient (CLI) | payer BC ==
[2022-03-19 13:11] LABS: BASO # 0.1 10^3/uL (0.0-0.2); BASO % 1.5 % (0.0-1.0); EOS # 0.2 10^3/uL (0.0-0.5); EOS % 4.3 % (0.0-3.0); HEMATOCRIT 38.7 % (36.0-47.0); HEMOGLOBIN 13.3 g/dl (12.0-15.5); LYMPH # 0.8 10^3/uL (1.5-5.0); MEAN CORPUSCULAR HEMOGLOBIN 34.3 pg (27.0-33.0); MEAN CORPUSCULAR HGB CONC 34.4 g/dl (32.0-36.5); MEAN CORPUSCULAR VOLUME 99.7 fl (80.0-96.0); MONO # 0.5 10^3/uL (0.0-0.8); PLATELET COUNT, AUTOMATED 238 10^3/uL (150-450); RED BLOOD COUNT 3.88 10^6/uL (4.00-5.40); WHITE BLOOD COUNT 4.6 10^3/uL (4.0-10.0)
[2022-03-19 13:39] LABS: CALCIUM LEVEL 9.9 MG/DL (8.8-10.2); CREATININE FOR GFR 1.12 MG/DL (0.55-1.30); GLOMERULAR FILTRATION RATE 52.1 (>45); POTASSIUM SERUM 4.6 MEQ/L (3.5-5.1)
== END ==
LOC: M ADAMS 10:18
PROVIDERS: ATTEND Nurse Practitioner Adult Health
DX: I34.9 Nonrheumatic mitral valve disorder, unspecified (principal); R06.02 Shortness of breath; I10 Essential (primary) hypertension; Z79.01 Long term (current) use of anticoagulants; I48.20 Chronic atrial fibrillation, unspecified

== ENCOUNTER → 2022-03-19 | Outpatient (CLI) | payer BC | LOC: M PLAIMG 12:46 → M PLALAB 12:46 | PROVIDERS: ATTEND Nurse Practitioner Family | DX: M25.531 Pain in right wrist (principal) ==

== ENCOUNTER → 2022-03-29 | Outpatient (CLI) | payer BC ==
[2022-03-29 09:48] LABS: PROTHROMBIN TIME 13.2 SECONDS (12.7-14.5)
[2022-03-29 09:49] LABS: INR 0.96
== END ==
LOC: M LAB 06:05
PROVIDERS: ATTEND Nurse Practitioner Family
DX: M48.061 Spinal stenosis, lumbar region without neurogenic claudication (principal)

== ENCOUNTER → 2022-04-08 | Outpatient (CLI) | payer BC ==
[2022-04-08 17:07] LABS: BASO # 0.1 10^3/uL (0.0-0.2); EOS # 0.2 10^3/uL (0.0-0.5); EOS % 3.6 % (0.0-3.0); HEMATOCRIT 39.4 % (36.0-47.0); HEMOGLOBIN 13.5 g/dl (12.0-15.5); LYMPH # 0.9 10^3/uL (1.5-5.0); LYMPH % 15.2 % (24.0-44.0); MEAN CORPUSCULAR HGB CONC 34.3 g/dl (32.0-36.5); MEAN CORPUSCULAR VOLUME 99.2 fl (80.0-96.0); MONO # 0.7 10^3/uL (0.0-0.8); MONO % 11.5 % (2.0-8.0); NEUTROPHILS # 4.2 10^3/uL (1.5-8.5); NEUTROPHILS % 68.4 % (36.0-66.0); PLATELET COUNT, AUTOMATED 251 10^3/uL (150-450); RED BLOOD COUNT 3.97 10^6/uL (4.00-5.40); WHITE BLOOD COUNT 6.1 10^3/uL (4.0-10.0)
[2022-04-08 17:16] LABS: CALCIUM LEVEL 9.5 MG/DL (8.8-10.2); CREATININE FOR GFR 1.14 MG/DL (0.55-1.30); GLOMERULAR FILTRATION RATE 51.1 (>45); POTASSIUM SERUM 4.4 MEQ/L (3.5-5.1)
== END ==
LOC: M ADAMS 13:26
PROVIDERS: ATTEND Internal Medicine Cardiovascular Disease
DX: I34.9 Nonrheumatic mitral valve disorder, unspecified (principal)

== ENCOUNTER → 2022-06-18 | Outpatient (CLI) | payer BC | LOC: M PLAIMG 08:42 | PROVIDERS: ATTEND Nurse Practitioner Family | DX: R05.1 Acute cough (principal); I51.7 Cardiomegaly; Z95.2 Presence of prosthetic heart valve ==

== ENCOUNTER → 2022-07-05 | Outpatient (CLI) | payer BC, MEDICARE ==
[~2022-07-05] MED LIST changes: +ASPI81CH33 PO; +CARD240C5 PO; +CETI-24 PO; +DILT1CAP46 PO; +DONE10TA90 PO; +JANT5TAB PO; +LEVO1TAB40 PO; +LOPR1TAB7 PO; +MUCI600T31 PO; -POTA-136; +POTA-136 PO; +RISATAB3 PO; +VENTAER INH; +ZOLO100T PO
== END ==
LOC: M PLAIMG 11:38
PROVIDERS: ATTEND Nurse Practitioner Family
DX: R05.1 Acute cough (principal); R91.8 Other nonspecific abnormal finding of lung field

== ENCOUNTER 2022-07-18 09:26 | Inpatient (IN) | payer BC, MEDICARE ==
[~2022-07-18] VITALS: Ht 157.5 cm; Wt 76.2 kg
[2022-07-18] VITALS (23 sets, daily range): BP systolic 86–147; BP diastolic 51–107
[~2022-07-18 09:26] MED LIST changes: -ASPI81CH33 PO; -CARD240C5 PO; -CETI-24 PO; -DILT1CAP46 PO; -DONE10TA90 PO; +FAMOTIDINE 20 MG TAB PO SCH; -JANT5TAB PO; -LEVO1TAB40 PO; -LOPR1TAB7 PO; -MUCI600T31 PO; -RISATAB3 PO; -VENTAER INH; -ZOLO100T PO
[2022-07-18 09:59] LABS: BASO # 0.1 10^3/uL (0.0-0.2); BASO % 0.7 % (0.0-1.0); EOS # 0.1 10^3/uL (0.0-0.5); EOS % 0.5 % (0.0-3.0); HEMATOCRIT 35.1 % (36.0-47.0); HEMOGLOBIN 10.8 g/dl (12.0-15.5); LYMPH # 0.4 10^3/uL (1.5-5.0); LYMPH % 3.6 % (24.0-44.0); MEAN CORPUSCULAR HGB CONC 30.8 g/dl (32.0-36.5); MEAN CORPUSCULAR VOLUME 104.2 fl (80.0-96.0); MONO # 0.7 10^3/uL (0.0-0.8); MONO % 5.6 % (2.0-8.0); NEUTROPHILS # 10.7 10^3/uL (1.5-8.5); NEUTROPHILS % 88.9 % (36.0-66.0); PLATELET COUNT, AUTOMATED 399 10^3/uL (150-450); RED BLOOD COUNT 3.37 10^6/uL (4.00-5.40); WHITE BLOOD COUNT 12.1 10^3/uL (4.0-10.0)
[2022-07-18] MEDS ORDERED: DILT1CAP46 PO (10:05)
[2022-07-18 10:11] LABS: PARTIAL THROMBOPLASTIN TIME 43.4 SECONDS (24.8-34.2)
[2022-07-18 10:18] LABS: LIPASE 50 U/L (12-53)
[2022-07-18 10:19] LABS: MAGNESIUM LEVEL 1.9 MG/DL (1.8-2.4)
[2022-07-18 10:20] LABS: BILIRUBIN,DIRECT 1.1 MG/DL (<0.4)
[2022-07-18 10:21] LABS: ALKALINE PHOSPHATASE 236 U/L (46-116); ALT/SGPT 115 U/L (7.0-40); AST/SGOT 120 U/L (<34); BILIRUBIN,TOTAL 2.4 MG/DL (0.3-1.2); BLOOD UREA NITROGEN 19 MG/DL (9-23); CALCIUM LEVEL 9.3 MG/DL (8.3-10.6); CARBON DIOXIDE LEVEL 25 MMOL/L (20-31); CHLORIDE LEVEL 101 MMOL/L (98-107); CREATININE FOR GFR 0.98 MG/DL (0.55-1.30); GLOMERULAR FILTRATION RATE > 60.0 (>45); GLUCOSE, FASTING 145 MG/DL (74-106); POTASSIUM SERUM 3.7 MMOL/L (3.5-5.1); SODIUM LEVEL 137 MMOL/L (136-145); TOTAL PROTEIN 6.7 G/DL (5.7-8.2)
[2022-07-18 10:22] LABS: CK-MB VALUE MASS 2.2 NG/ML (<3.6)
[2022-07-18 10:24] LABS: PROTHROMBIN TIME 49.3 SECONDS (12.5-14.5)
[2022-07-18 10:25] LABS: FREE T4 1.25 NG/DL (0.89-1.76)
[2022-07-18 10:26] LABS: INR 5.3
[2022-07-18 10:28] LABS: CPK CREATINE PHOSPHOKINASE 668 U/L (34-145); MB/CK RELATIVE INDEX 0.32 (< OR =4)
[2022-07-18] MEDS ORDERED: ZOLO100T PO (10:33)
[2022-07-18] MEDS ORDERED: PRAV40TA2 PO (10:33)
[2022-07-18] MEDS ORDERED: ASPI81CH33 PO (10:33)
[2022-07-18] MEDS ORDERED: diltiaZEM 125 MG in NS 100 ML IV SCH (10:40)
[2022-07-18 11:16] LABS: RSV AMPLIFICATION NEGATIVE (NEGATIVE)
[2022-07-18 11:17] LABS: CK-MB VALUE MASS 2.5 NG/ML (<3.6)
[2022-07-18 11:18] LABS: MB/CK RELATIVE INDEX 0.41 (< OR =4)
[2022-07-18] MEDS ORDERED: VENTAER INH (11:36)
[2022-07-18] MEDS ORDERED: FURO40TA2 PO (11:36)
[2022-07-18] MEDS ORDERED: CETI-24 PO (11:36)
[2022-07-18] MEDS ORDERED: JANT5TAB PO (11:36)
[2022-07-18] MEDS ORDERED: DIGO0.123 PO (11:36)
[2022-07-18] MEDS ORDERED: DONE10TA90 PO (11:36)
[2022-07-18] MEDS ORDERED: ISOVUE-370 76% 100ML VIAL As Ordered ONE (11:37)
[2022-07-18] MEDS ORDERED: HOME MED LIST COMPLETE! XX SCH (11:40)
[2022-07-18] MEDS ORDERED: NS 500 ML IV ONE (13:05)
[2022-07-18] MEDS ORDERED: cefTRIAXone SOD 2 GM in D5W MINI-BAG PLUS 50 ML IV ONE (13:05)
[2022-07-18] MEDS ORDERED: DIGOXIN INJ 0.5 MG/2 ML AMP IV STA (14:53)
[2022-07-18] MEDS ORDERED: ACETAMINOPHEN 500 MG TAB PO PRN (15:25)
[2022-07-18] MEDS: FUROSEMIDE 40MG/4ML VIAL IV SCH (16:30)
[2022-07-18] MEDS: atenoloL 25 MG TAB PO SCH ×2 (16:33→20:55)
[2022-07-18] MEDS ORDERED: ALPRAZolam 0.25 MG TAB PO ONE (17:00)
[2022-07-18] MEDS: AZITHROMYCIN 250MG TABLET PO SCH (17:05)
[2022-07-18] MEDS: diltiaZEM 125 MG in NS 100 ML IV SCH (19:28)
[2022-07-18] MEDS: DONEPEZIL 5 MG TAB PO SCH (20:54)
[2022-07-19] VITALS (55 sets, daily range): BP systolic 91–132; BP diastolic 55–103
[2022-07-19] MEDS: diltiaZEM 125 MG in NS 100 ML IV SCH (03:32)
[2022-07-19 05:05] LABS: HEMATOCRIT 31.9 % (36.0-47.0); HEMOGLOBIN 9.9 g/dl (12.0-15.5); MEAN CORPUSCULAR HEMOGLOBIN 32.5 pg (27.0-33.0); MEAN CORPUSCULAR VOLUME 104.6 fl (80.0-96.0); PLATELET COUNT, AUTOMATED 355 10^3/uL (150-450); RED BLOOD COUNT 3.05 10^6/uL (4.00-5.40); WHITE BLOOD COUNT 9.1 10^3/uL (4.0-10.0)
[2022-07-19 05:23] LABS: DIGOXIN LEVEL 1.4 NG/ML (0.8-2.0)
[2022-07-19 05:26] LABS: INR 4.53; PROTHROMBIN TIME 43.6 SECONDS (12.5-14.5)
[2022-07-19 05:37] LABS: HEPATITIS B SURFACE ANTIGEN NEGATIVE (NEGATIVE)
[2022-07-19 05:58] LABS: HEPATITIS C VIRUS ABY INDEX 0.1 INDEX (<0.8)
[2022-07-19 06:03] LABS: ALBUMIN 2.8 G/DL (3.2-5.2); ALKALINE PHOSPHATASE 212 U/L (46-116); ALT/SGPT 96 U/L (7.0-40); AST/SGOT 97 U/L (<34); BILIRUBIN,TOTAL 1.2 MG/DL (0.3-1.2); BLOOD UREA NITROGEN 21 MG/DL (9-23); CARBON DIOXIDE LEVEL 20 MMOL/L (20-31); CHLORIDE LEVEL 103 MMOL/L (98-107); CREATININE FOR GFR 0.99 MG/DL (0.55-1.30); GLOMERULAR FILTRATION RATE > 60.0 (>45); GLUCOSE, FASTING 106 MG/DL (74-106); POTASSIUM SERUM 3.9 MMOL/L (3.5-5.1); SODIUM LEVEL 136 MMOL/L (136-145)
[2022-07-19] MEDS ORDERED: ALPRAZolam 0.25 MG TAB PO ONE (07:55)
[2022-07-19] MEDS: PANTOPRAZOLE 40MG TAB (PROTONIX) PO SCH (08:21)
[2022-07-19] MEDS: SERTRALINE 100 MG TAB PO SCH (08:21)
[2022-07-19] MEDS: MONTELUKAST 10 MG TAB PO SCH (08:22)
[2022-07-19] MEDS: atenoloL 25 MG TAB PO SCH ×2 (08:22→22:00)
[2022-07-19] MEDS: AZITHROMYCIN 250MG TABLET PO SCH (08:22)
[2022-07-19] MEDS: FUROSEMIDE 40MG/4ML VIAL IV SCH (08:22)
[2022-07-19] MEDS ORDERED: SPIRONOLACTONE 25 MG TAB PO SCH (09:00)
[2022-07-19] MEDS ORDERED: IPRATROPIUM 0.5MG/ALBUTEROL 2.5MG INH SOL UD 3ML (DUONEB) NEB PRN (12:25)
[2022-07-19] MEDS ORDERED: LEVALBUTEROL 1.25MG 0.5ML CONCENTRATE NEB INH PRN (12:25)
[2022-07-19] MEDS: cefTRIAXone SOD 1 GM in D5W MINI-BAG PLUS 50 ML IV SCH (13:14)
[2022-07-19] MEDS: DOXYCYCLINE HYCLATE 100MG TABLET PO SCH ×2 (13:31→22:00)
[2022-07-19] MEDS ORDERED: FUROSEMIDE 20MG/2ML VIAL IV ONE (21:00)
[2022-07-19] MEDS: guaiFENesin ER 600 MG TAB PO SCH (21:59)
[2022-07-19] MEDS: DONEPEZIL 5 MG TAB PO SCH (22:00)
[2022-07-20] VITALS: BP 122/90
[2022-07-20 04:00] VITALS: BP 111/72
[2022-07-20 05:28] LABS: BASO # 0.1 10^3/uL (0.0-0.2); BASO % 0.7 % (0.0-1.0); EOS # 0.2 10^3/uL (0.0-0.5); EOS % 2.5 % (0.0-3.0); HEMATOCRIT 31.8 % (36.0-47.0); HEMOGLOBIN 9.8 g/dl (12.0-15.5); LYMPH # 0.6 10^3/uL (1.5-5.0); LYMPH % 7.2 % (24.0-44.0); MEAN CORPUSCULAR HEMOGLOBIN 32.8 pg (27.0-33.0); MEAN CORPUSCULAR HGB CONC 30.8 g/dl (32.0-36.5); MEAN CORPUSCULAR VOLUME 106.4 fl (80.0-96.0); MONO # 0.6 10^3/uL (0.0-0.8); MONO % 6.8 % (2.0-8.0); NEUTROPHILS # 6.8 10^3/uL (1.5-8.5); NEUTROPHILS % 82.3 % (36.0-66.0); PLATELET COUNT, AUTOMATED 325 10^3/uL (150-450); RED BLOOD COUNT 2.99 10^6/uL (4.00-5.40); WHITE BLOOD COUNT 8.3 10^3/uL (4.0-10.0)
[2022-07-20 05:46] LABS: INR 3.03; PROTHROMBIN TIME 31.9 SECONDS (12.5-14.5)
[2022-07-20 05:51] LABS: MAGNESIUM LEVEL 1.8 MG/DL (1.8-2.4)
[2022-07-20 05:53] LABS: ALBUMIN 2.7 G/DL (3.2-5.2); BILIRUBIN,TOTAL 0.9 MG/DL (0.3-1.2); CALCIUM LEVEL 8.5 MG/DL (8.3-10.6); CREATININE FOR GFR 1.12 MG/DL (0.55-1.30); DIGOXIN LEVEL 1.1 NG/ML (0.8-2.0); GLOMERULAR FILTRATION RATE 52.1 (>45); POTASSIUM SERUM 3.7 MMOL/L (3.5-5.1)
[2022-07-20 08:00] VITALS: BP 121/90
[2022-07-20] MEDS: PANTOPRAZOLE 40MG TAB (PROTONIX) PO SCH (08:24)
[2022-07-20] MEDS: atenoloL 25 MG TAB PO SCH ×2 (08:24→21:07)
[2022-07-20] MEDS: guaiFENesin ER 600 MG TAB PO SCH ×2 (08:24→21:07)
[2022-07-20] MEDS: SERTRALINE 100 MG TAB PO SCH (08:24)
[2022-07-20] MEDS: AZITHROMYCIN 250MG TABLET PO SCH (08:25)
[2022-07-20] MEDS: DOXYCYCLINE HYCLATE 100MG TABLET PO SCH ×2 (08:25→21:07)
[2022-07-20] MEDS: MONTELUKAST 10 MG TAB PO SCH (08:25)
[2022-07-20] MEDS: FUROSEMIDE 40MG/4ML VIAL IV SCH ×3 (08:25→17:46)
[2022-07-20] MEDS ORDERED: DIGOXIN 0.125 MG TAB PO SCH ×3 (11:10→21:00)
[2022-07-20 12:00] VITALS: BP 123/77
[2022-07-20] MEDS: cefTRIAXone SOD 1 GM in D5W MINI-BAG PLUS 50 ML IV SCH (12:32)
[2022-07-20 16:00] VITALS: BP 104/70
[2022-07-20] MEDS: MAG SULF 1GM/100ML (MAG RUN) 1 GM in IV 1 EA IV SCH ×2 (17:46→19:07)
[2022-07-20] MEDS: DIGOXIN INJ 0.5 MG/2 ML AMP IV SCH ×2 (17:46→23:44)
[2022-07-20 18:08] LABS: MAGNESIUM LEVEL 1.7 MG/DL (1.8-2.4)
[2022-07-20 18:09] LABS: BLOOD UREA NITROGEN 23 MG/DL (9-23); CALCIUM LEVEL 8.2 MG/DL (8.3-10.6); CARBON DIOXIDE LEVEL 25 MMOL/L (20-31); CHLORIDE LEVEL 105 MMOL/L (98-107); CREATININE FOR GFR 0.89 MG/DL (0.55-1.30); GLOMERULAR FILTRATION RATE > 60.0 (>45); GLUCOSE, FASTING 96 MG/DL (74-106); POTASSIUM SERUM 3.5 MMOL/L (3.5-5.1); SODIUM LEVEL 139 MMOL/L (136-145)
[2022-07-20 20:00] VITALS: BP 137/73
[2022-07-20] MEDS: WARFARIN SOD 5MG TAB PO SCH (21:07)
[2022-07-20] MEDS: DONEPEZIL 5 MG TAB PO SCH (21:07)
[2022-07-21] VITALS (10 sets, daily range): BP systolic 90–150; BP diastolic 57–103
[2022-07-21 04:33] LABS: BASO # 0.1 10^3/uL (0.0-0.2); BASO % 1.3 % (0.0-1.0); EOS # 0.2 10^3/uL (0.0-0.5); EOS % 3.6 % (0.0-3.0); HEMATOCRIT 32.7 % (36.0-47.0); HEMOGLOBIN 9.9 g/dl (12.0-15.5); LYMPH # 0.7 10^3/uL (1.5-5.0); LYMPH % 10.2 % (24.0-44.0); MEAN CORPUSCULAR HEMOGLOBIN 32.2 pg (27.0-33.0); MEAN CORPUSCULAR HGB CONC 30.3 g/dl (32.0-36.5); MEAN CORPUSCULAR VOLUME 106.5 fl (80.0-96.0); MONO # 0.5 10^3/uL (0.0-0.8); MONO % 7.1 % (2.0-8.0); NEUTROPHILS % 77.6 % (36.0-66.0); PLATELET COUNT, AUTOMATED 297 10^3/uL (150-450); RED BLOOD COUNT 3.07 10^6/uL (4.00-5.40); WHITE BLOOD COUNT 6.4 10^3/uL (4.0-10.0)
[2022-07-21 04:43] LABS: INR 1.85; PROTHROMBIN TIME 21.7 SECONDS (12.5-14.5)
[2022-07-21 04:56] LABS: DIGOXIN LEVEL 1.5 NG/ML (0.8-2.0)
[2022-07-21 04:57] LABS: ALBUMIN 2.8 G/DL (3.2-5.2); ALKALINE PHOSPHATASE 184 U/L (46-116); ALT/SGPT 77 U/L (7.0-40); AST/SGOT 100 U/L (<34); BILIRUBIN,TOTAL 0.9 MG/DL (0.3-1.2); BLOOD UREA NITROGEN 20 MG/DL (9-23); CALCIUM LEVEL 8.5 MG/DL (8.3-10.6); CARBON DIOXIDE LEVEL 28 MMOL/L (20-31); CHLORIDE LEVEL 104 MMOL/L (98-107); CREATININE FOR GFR 0.92 MG/DL (0.55-1.30); GLOMERULAR FILTRATION RATE > 60.0 (>45); GLUCOSE, FASTING 117 MG/DL (74-106); POTASSIUM SERUM 3.9 MMOL/L (3.5-5.1); SODIUM LEVEL 140 MMOL/L (136-145); TOTAL PROTEIN 5.9 G/DL (5.7-8.2)
[2022-07-21] MEDS: DIGOXIN INJ 0.5 MG/2 ML AMP IV SCH ×2 (05:05→12:29)
[2022-07-21] MEDS: MONTELUKAST 10 MG TAB PO SCH (09:14)
[2022-07-21] MEDS: PANTOPRAZOLE 40MG TAB (PROTONIX) PO SCH (09:14)
[2022-07-21] MEDS: guaiFENesin ER 600 MG TAB PO SCH ×2 (09:14→20:08)
[2022-07-21] MEDS: SERTRALINE 100 MG TAB PO SCH (09:15)
[2022-07-21] MEDS: atenoloL 25 MG TAB PO SCH (09:15)
[2022-07-21] MEDS: FUROSEMIDE 40MG/4ML VIAL IV SCH (09:15)
[2022-07-21] MEDS: DOXYCYCLINE HYCLATE 100MG TABLET PO SCH ×2 (09:15→20:08)
[2022-07-21] MEDS: AZITHROMYCIN 250MG TABLET PO SCH (09:15)
[2022-07-21] MEDS: cefTRIAXone SOD 1 GM in D5W MINI-BAG PLUS 50 ML IV SCH (12:29)
[2022-07-21] MEDS: FUROSEMIDE 40 MG TAB PO SCH (17:45)
[2022-07-21 18:41] LABS: BLOOD UREA NITROGEN 22 MG/DL (9-23); CALCIUM LEVEL 8.6 MG/DL (8.3-10.6); CARBON DIOXIDE LEVEL 26 MMOL/L (20-31); CHLORIDE LEVEL 105 MMOL/L (98-107); GLOMERULAR FILTRATION RATE > 60.0 (>45); GLUCOSE, FASTING 97 MG/DL (74-106); POTASSIUM SERUM 3.7 MMOL/L (3.5-5.1); SODIUM LEVEL 141 MMOL/L (136-145)
[2022-07-21] MEDS: WARFARIN SOD 5MG TAB PO SCH (20:07)
[2022-07-21] MEDS: atenoloL 50 MG TAB PO SCH (20:09)
[2022-07-21] MEDS: DONEPEZIL 5 MG TAB PO SCH (20:09)
[2022-07-21] MEDS: POTASSIUM CHLORIDE 10MEQ SR TABLET PO SCH (20:09)
[2022-07-21] MEDS ORDERED: atenoloL 50 MG TAB PO SCH (21:00)
[2022-07-22] VITALS (9 sets, daily range): BP systolic 92–133; BP diastolic 60–81
[2022-07-22 05:06] LABS: BASO # 0.1 10^3/uL (0.0-0.2); BASO % 1.6 % (0.0-1.0); EOS # 0.2 10^3/uL (0.0-0.5); EOS % 4.4 % (0.0-3.0); HEMATOCRIT 33.5 % (36.0-47.0); HEMOGLOBIN 10.3 g/dl (12.0-15.5); LYMPH # 0.5 10^3/uL (1.5-5.0); LYMPH % 9.6 % (24.0-44.0); MEAN CORPUSCULAR HEMOGLOBIN 32.8 pg (27.0-33.0); MEAN CORPUSCULAR HGB CONC 30.7 g/dl (32.0-36.5); MEAN CORPUSCULAR VOLUME 106.7 fl (80.0-96.0); MONO # 0.5 10^3/uL (0.0-0.8); MONO % 9.4 % (2.0-8.0); NEUTROPHILS # 4.1 10^3/uL (1.5-8.5); NEUTROPHILS % 74.8 % (36.0-66.0); PLATELET COUNT, AUTOMATED 274 10^3/uL (150-450); RED BLOOD COUNT 3.14 10^6/uL (4.00-5.40); WHITE BLOOD COUNT 5.5 10^3/uL (4.0-10.0)
[2022-07-22 05:16] LABS: INR 1.73; PROTHROMBIN TIME 20.6 SECONDS (12.5-14.5)
[2022-07-22 05:34] LABS: MAGNESIUM LEVEL 1.7 MG/DL (1.8-2.4)
[2022-07-22 05:35] LABS: ALBUMIN 2.7 G/DL (3.2-5.2); ALKALINE PHOSPHATASE 166 U/L (46-116); ALT/SGPT 73 U/L (7.0-40); AST/SGOT 115 U/L (<34); BILIRUBIN,TOTAL 0.9 MG/DL (0.3-1.2); BLOOD UREA NITROGEN 19 MG/DL (9-23); CALCIUM LEVEL 8.9 MG/DL (8.3-10.6); CARBON DIOXIDE LEVEL 30 MMOL/L (20-31); CHLORIDE LEVEL 105 MMOL/L (98-107); CREATININE FOR GFR 0.87 MG/DL (0.55-1.30); GLOMERULAR FILTRATION RATE > 60.0 (>45); GLUCOSE, FASTING 96 MG/DL (74-106); POTASSIUM SERUM 4.2 MMOL/L (3.5-5.1); SODIUM LEVEL 142 MMOL/L (136-145); TOTAL PROTEIN 5.8 G/DL (5.7-8.2)
[2022-07-22] MEDS ORDERED: DIGOXIN 0.125 MG TAB PO SCH (09:00)
[2022-07-22 09:10] LABS: CPK CREATINE PHOSPHOKINASE 1391 U/L (34-145)
[2022-07-22] MEDS: PANTOPRAZOLE 40MG TAB (PROTONIX) PO SCH (10:39)
[2022-07-22] MEDS: atenoloL 50 MG TAB PO SCH ×2 (10:41→17:12)
[2022-07-22] MEDS: SERTRALINE 100 MG TAB PO SCH (10:42)
[2022-07-22] MEDS: DOXYCYCLINE HYCLATE 100MG TABLET PO SCH (10:42)
[2022-07-22] MEDS: FUROSEMIDE 40 MG TAB PO SCH ×2 (10:43→17:12)
[2022-07-22] MEDS: guaiFENesin ER 600 MG TAB PO SCH ×2 (10:43→20:26)
[2022-07-22] MEDS: MONTELUKAST 10 MG TAB PO SCH (10:43)
[2022-07-22] MEDS: CEFDINIR 300 MG CAP (OMNICEF) PO SCH ×2 (10:47→20:26)
[2022-07-22] MEDS ORDERED: MAGNESIUM OXIDE 400MG TAB (MAG-OX) PO ONE (12:25)
[2022-07-22] MEDS: WARFARIN SOD 7.5MG TAB PO SCH (17:10)
[2022-07-22] MEDS: MAALOX 30 ML SUSP *UDC PO PRN ×2 (17:12→22:48)
[2022-07-22 18:52] LABS: BLOOD UREA NITROGEN 19 MG/DL (9-23); CALCIUM LEVEL 9.4 MG/DL (8.3-10.6); CARBON DIOXIDE LEVEL 25 MMOL/L (20-31); CHLORIDE LEVEL 104 MMOL/L (98-107); CREATININE FOR GFR 0.88 MG/DL (0.55-1.30); GLOMERULAR FILTRATION RATE > 60.0 (>45); GLUCOSE, FASTING 111 MG/DL (74-106); POTASSIUM SERUM 4.2 MMOL/L (3.5-5.1); SODIUM LEVEL 142 MMOL/L (136-145)
[2022-07-22] MEDS: DONEPEZIL 5 MG TAB PO SCH (20:26)
[2022-07-22] MEDS: POTASSIUM CHLORIDE 10MEQ SR TABLET PO SCH (20:26)
[2022-07-22] MEDS: DIGOXIN 0.125 MG TAB PO SCH (20:27)
[2022-07-23] VITALS (7 sets, daily range): BP systolic 100–125; BP diastolic 71–90
[2022-07-23 05:41] LABS: BASO # 0.1 10^3/uL (0.0-0.2); BASO % 1.1 % (0.0-1.0); EOS # 0.2 10^3/uL (0.0-0.5); EOS % 2.7 % (0.0-3.0); HEMATOCRIT 33.4 % (36.0-47.0); HEMOGLOBIN 10.2 g/dl (12.0-15.5); LYMPH # 0.5 10^3/uL (1.5-5.0); LYMPH % 8.4 % (24.0-44.0); MEAN CORPUSCULAR HEMOGLOBIN 32.7 pg (27.0-33.0); MEAN CORPUSCULAR HGB CONC 30.5 g/dl (32.0-36.5); MEAN CORPUSCULAR VOLUME 107.1 fl (80.0-96.0); MONO # 0.4 10^3/uL (0.0-0.8); MONO % 7.7 % (2.0-8.0); NEUTROPHILS # 4.4 10^3/uL (1.5-8.5); NEUTROPHILS % 79.7 % (36.0-66.0); PLATELET COUNT, AUTOMATED 270 10^3/uL (150-450); RED BLOOD COUNT 3.12 10^6/uL (4.00-5.40); WHITE BLOOD COUNT 5.5 10^3/uL (4.0-10.0)
[2022-07-23 05:53] LABS: INR 1.84; PROTHROMBIN TIME 21.6 SECONDS (12.5-14.5)
[2022-07-23 06:06] LABS: MAGNESIUM LEVEL 1.9 MG/DL (1.8-2.4)
[2022-07-23 06:08] LABS: ALBUMIN 2.9 G/DL (3.2-5.2); ALKALINE PHOSPHATASE 166 U/L (46-116); ALT/SGPT 81 U/L (7.0-40); AST/SGOT 136 U/L (<34); BILIRUBIN,DIRECT 0.4 MG/DL (<0.4); BILIRUBIN,TOTAL 0.8 MG/DL (0.3-1.2); BLOOD UREA NITROGEN 19 MG/DL (9-23); CALCIUM LEVEL 9.2 MG/DL (8.3-10.6); CARBON DIOXIDE LEVEL 26 MMOL/L (20-31); CHLORIDE LEVEL 106 MMOL/L (98-107); CREATININE FOR GFR 0.93 MG/DL (0.55-1.30); GLOMERULAR FILTRATION RATE > 60.0 (>45); GLUCOSE, FASTING 112 MG/DL (74-106); POTASSIUM SERUM 4.8 MMOL/L (3.5-5.1); SODIUM LEVEL 143 MMOL/L (136-145)
[2022-07-23 07:54] LABS: CPK CREATINE PHOSPHOKINASE 1575 U/L (34-145)
[2022-07-23] MEDS: CEFDINIR 300 MG CAP (OMNICEF) PO SCH (09:00)
[2022-07-23] MEDS: FUROSEMIDE 40 MG TAB PO SCH ×2 (09:18→17:49)
[2022-07-23] MEDS: PANTOPRAZOLE 40MG TAB (PROTONIX) PO SCH (09:19)
[2022-07-23] MEDS: guaiFENesin ER 600 MG TAB PO SCH ×2 (09:19→21:19)
[2022-07-23] MEDS: SERTRALINE 100 MG TAB PO SCH (09:19)
[2022-07-23] MEDS: DIGOXIN 0.125 MG TAB PO SCH (09:19)
[2022-07-23] MEDS: MONTELUKAST 10 MG TAB PO SCH (09:19)
[2022-07-23] MEDS: atenoloL 50 MG TAB PO SCH ×2 (09:20→21:20)
[2022-07-23] MEDS: NYSTATIN 100,000 UNITS/GM TOPICAL PWD 15GM TOP SCH ×2 (12:28→21:20)
[2022-07-23 14:26] LABS: LDH LACTATE DEHYDROGENASE 737 U/L (120-246)
[2022-07-23 14:28] LABS: C REACTIVE PROTEIN QUANTITATIV < 0.40 MG/DL (<1.0)
[2022-07-23 14:41] LABS: ERYTHROCYTE SEDIMENTATION RATE 23 mm/hr (0-30)
[2022-07-23 17:06] LABS: ALBUMIN 2.9 G/DL (3.2-5.2); BILIRUBIN,DIRECT 0.4 MG/DL (<0.4); BILIRUBIN,TOTAL 0.8 MG/DL (0.3-1.2)
[2022-07-23] MEDS: LACTOBACILLUS ACIDOPHILUS CAP (BACID) PO SCH (17:48)
[2022-07-23] MEDS: WARFARIN SOD 7.5MG TAB PO SCH (17:49)
[2022-07-23] MEDS: DONEPEZIL 5 MG TAB PO SCH (21:20)
[2022-07-24] VITALS (7 sets, daily range): BP systolic 92–110; BP diastolic 62–77; O2SAT 96
[2022-07-24 05:54] LABS: BASO # 0.1 10^3/uL (0.0-0.2); BASO % 1.5 % (0.0-1.0); EOS # 0.2 10^3/uL (0.0-0.5); EOS % 3.7 % (0.0-3.0); HEMATOCRIT 32.9 % (36.0-47.0); HEMOGLOBIN 10.3 g/dl (12.0-15.5); LYMPH # 0.6 10^3/uL (1.5-5.0); MEAN CORPUSCULAR HEMOGLOBIN 33.1 pg (27.0-33.0); MEAN CORPUSCULAR HGB CONC 31.3 g/dl (32.0-36.5); MEAN CORPUSCULAR VOLUME 105.8 fl (80.0-96.0); MONO # 0.5 10^3/uL (0.0-0.8); MONO % 8.8 % (2.0-8.0); NEUTROPHILS # 4.1 10^3/uL (1.5-8.5); NEUTROPHILS % 74.5 % (36.0-66.0); PLATELET COUNT, AUTOMATED 239 10^3/uL (150-450); RED BLOOD COUNT 3.11 10^6/uL (4.00-5.40); WHITE BLOOD COUNT 5.5 10^3/uL (4.0-10.0)
[2022-07-24 06:19] LABS: MAGNESIUM LEVEL 1.8 MG/DL (1.8-2.4)
[2022-07-24 06:20] LABS: BILIRUBIN,DIRECT 0.4 MG/DL (<0.4); CPK CREATINE PHOSPHOKINASE 1195 U/L (34-145)
[2022-07-24 06:21] LABS: ALBUMIN 2.7 G/DL (3.2-5.2); ALKALINE PHOSPHATASE 153 U/L (46-116); ALT/SGPT 78 U/L (7.0-40); AST/SGOT 122 U/L (<34); BILIRUBIN,TOTAL 0.9 MG/DL (0.3-1.2); BLOOD UREA NITROGEN 18 MG/DL (9-23); CALCIUM LEVEL 8.8 MG/DL (8.3-10.6); CARBON DIOXIDE LEVEL 32 MMOL/L (20-31); CHLORIDE LEVEL 103 MMOL/L (98-107); CREATININE FOR GFR 0.94 MG/DL (0.55-1.30); GLOMERULAR FILTRATION RATE > 60.0 (>45); GLUCOSE, FASTING 104 MG/DL (74-106); POTASSIUM SERUM 4.5 MMOL/L (3.5-5.1); SODIUM LEVEL 140 MMOL/L (136-145)
[2022-07-24 06:54] LABS: INR 2.39; PROTHROMBIN TIME 26.5 SECONDS (12.5-14.5)
[2022-07-24] MEDS ORDERED: SERTRALINE 100 MG TAB PO SCH (09:00)
[2022-07-24] MEDS: MONTELUKAST 10 MG TAB PO SCH (09:23)
[2022-07-24] MEDS: guaiFENesin ER 600 MG TAB PO SCH ×2 (09:23→20:44)
[2022-07-24] MEDS: NYSTATIN 100,000 UNITS/GM TOPICAL PWD 15GM TOP SCH ×2 (09:23→20:46)
[2022-07-24] MEDS: DIGOXIN 0.125 MG TAB PO SCH (09:24)
[2022-07-24] MEDS: SERTRALINE 100 MG TAB PO SCH (09:24)
[2022-07-24] MEDS: PANTOPRAZOLE 40MG TAB (PROTONIX) PO SCH (09:24)
[2022-07-24] MEDS: LACTOBACILLUS ACIDOPHILUS CAP (BACID) PO SCH ×2 (09:24→17:26)
[2022-07-24] MEDS: FUROSEMIDE 40 MG TAB PO SCH (09:24)
[2022-07-24] MEDS: LEVALBUTEROL 1.25MG 0.5ML CONCENTRATE NEB INH SCH ×4 (12:00→23:23)
[2022-07-24] MEDS: IPRATROPIUM 0.02% SOLN 0.5MG 2.5ML NEB INH SCH ×4 (12:00→23:23)
[2022-07-24] MEDS: ADVAIR HFA 230/21MCG INHALER INH SCH ×2 (12:00→19:48)
[2022-07-24] MEDS: predniSONE 20 MG TAB PO SCH (12:52)
[2022-07-24] MEDS: ASPIRIN 81MG CHEW TABLET PO SCH (12:52)
[2022-07-24] MEDS: atenoloL 50 MG TAB PO SCH ×3 (12:53→20:44)
[2022-07-24] MEDS: WARFARIN SOD 7.5MG TAB PO SCH (17:26)
[2022-07-24] MEDS: PRAVASTATIN 20 MG TAB PO SCH (20:44)
[2022-07-24] MEDS: DONEPEZIL 5 MG TAB PO SCH (20:44)
[2022-07-24] MEDS: valACYclovir HCL 500 MG TAB PO SCH (20:45)
[2022-07-25] VITALS (8 sets, daily range): BP systolic 96–131; BP diastolic 56–85
[2022-07-25] MEDS: LEVALBUTEROL 1.25MG 0.5ML CONCENTRATE NEB INH SCH ×6 (03:20→23:57)
[2022-07-25] MEDS: IPRATROPIUM 0.02% SOLN 0.5MG 2.5ML NEB INH SCH ×6 (03:20→23:57)
[2022-07-25 05:01] LABS: BASO # 0.1 10^3/uL (0.0-0.2); BASO % 0.6 % (0.0-1.0); EOS # 0.1 10^3/uL (0.0-0.5); HEMATOCRIT 31.6 % (36.0-47.0); HEMOGLOBIN 9.9 g/dl (12.0-15.5); LYMPH # 0.5 10^3/uL (1.5-5.0); LYMPH % 6.1 % (24.0-44.0); MEAN CORPUSCULAR HEMOGLOBIN 32.2 pg (27.0-33.0); MEAN CORPUSCULAR HGB CONC 31.3 g/dl (32.0-36.5); MEAN CORPUSCULAR VOLUME 102.9 fl (80.0-96.0); MONO # 0.7 10^3/uL (0.0-0.8); MONO % 7.6 % (2.0-8.0); NEUTROPHILS # 7.3 10^3/uL (1.5-8.5); NEUTROPHILS % 84.2 % (36.0-66.0); PLATELET COUNT, AUTOMATED 244 10^3/uL (150-450); RED BLOOD COUNT 3.07 10^6/uL (4.00-5.40); WHITE BLOOD COUNT 8.7 10^3/uL (4.0-10.0)
[2022-07-25 05:13] LABS: INR 3.03; PROTHROMBIN TIME 31.9 SECONDS (12.5-14.5)
[2022-07-25 05:25] LABS: MAGNESIUM LEVEL 1.7 MG/DL (1.8-2.4)
[2022-07-25 05:26] LABS: ALBUMIN 2.8 G/DL (3.2-5.2); BILIRUBIN,DIRECT 0.4 MG/DL (<0.4); BILIRUBIN,TOTAL 0.9 MG/DL (0.3-1.2); CALCIUM LEVEL 8.4 MG/DL (8.3-10.6); CREATININE FOR GFR 1.01 MG/DL (0.55-1.30); GLOMERULAR FILTRATION RATE 58.7 (>45); POTASSIUM SERUM 3.7 MMOL/L (3.5-5.1)
[2022-07-25] MEDS ORDERED: NS 1,000 ML IV SCH (06:40)
[2022-07-25] MEDS ORDERED: AMIODARONE HCL 150 MG in IV 1 EA IV ONE (07:25)
[2022-07-25 07:44] LABS: D-DIMER QUANT 884.58 ng/ml (<500)
[2022-07-25] MEDS: MAG SULF 1GM/100ML (MAG RUN) 1 GM in IV 1 EA IV SCH ×2 (08:15→09:59)
[2022-07-25] MEDS: ADVAIR HFA 230/21MCG INHALER INH SCH ×2 (08:28→19:17)
[2022-07-25] MEDS: PANTOPRAZOLE 40MG TAB (PROTONIX) PO SCH (09:59)
[2022-07-25] MEDS: LevoFLOXacin 750 MG TABLET PO SCH (10:00)
[2022-07-25] MEDS: ASPIRIN 81MG CHEW TABLET PO SCH (10:00)
[2022-07-25] MEDS: predniSONE 20 MG TAB PO SCH (10:00)
[2022-07-25] MEDS: MONTELUKAST 10 MG TAB PO SCH (10:02)
[2022-07-25] MEDS: DIGOXIN 0.125 MG TAB PO SCH (10:02)
[2022-07-25] MEDS: SERTRALINE 100 MG TAB PO SCH (10:03)
[2022-07-25] MEDS: NYSTATIN 100,000 UNITS/GM TOPICAL PWD 15GM TOP SCH ×2 (10:03→20:08)
[2022-07-25] MEDS: guaiFENesin ER 600 MG TAB PO SCH ×2 (10:04→20:06)
[2022-07-25] MEDS: atenoloL 50 MG TAB PO SCH ×2 (10:09→20:06)
[2022-07-25] MEDS: LACTOBACILLUS ACIDOPHILUS CAP (BACID) PO SCH ×2 (10:12→18:43)
[2022-07-25] MEDS ORDERED: POTASSIUM CHLORIDE 10MEQ SR TABLET PO ONE (10:30)
[2022-07-25 10:38] LABS: APPEARANCE, URINE MANUAL HAZY (CLEAR); COLOR, URINE MANUAL YELLOW (YELLOW)
[2022-07-25 10:40] LABS: GLUCOSE, URINE (UA) MANUAL NEGATIVE (NEGATIVE); PROTEIN, URINE MANUAL 1+ mg/dL (NEGATIVE)
[2022-07-25 10:41] LABS: BILIRUBIN, URINE MANUAL NEGATIVE (NEGATIVE); BLOOD URINE MANUAL NEGATIVE (NEGATIVE); KETONE, URINE MANUAL NEGATIVE (NEGATIVE); LEUKOCYTE ESTERASE, URINE MAN TRACE (NEGATIVE); NITRITE, URINE MANUAL NEGATIVE (NEGATIVE); UROBILINOGEN, URINE MANUAL NORMAL (NORMAL)
[2022-07-25 10:51] LABS: BACTERIA, URINE MOD AMOUNT; HYALINE CAST, URINE NONE SEEN /lpf (0-1); RBC, URINE 0-1 /hpf (0-3); SQUAMOUS EPITHELIAL CELL URINE MOD AMOUNT /hpf (SMALL AMT)
[2022-07-25 10:52] LABS: AMORPHOUS SEDIMENT, URINE SMALL AMOUNT (NEGATIVE); MUCUS, URINE SMALL AMOUNT (NEGATIVE)
[2022-07-25] MEDS ORDERED: diphenhydrAMINE 25MG CAP PO ONE (12:00)
[2022-07-25] MEDS: MAALOX 30 ML SUSP *UDC PO PRN ×2 (15:36→20:06)
[2022-07-25] MEDS: WARFARIN SOD 5MG TAB PO SCH (18:43)
[2022-07-25] MEDS: DONEPEZIL 5 MG TAB PO SCH (20:05)
[2022-07-25] MEDS: valACYclovir HCL 500 MG TAB PO SCH (20:06)
[2022-07-25] MEDS: PRAVASTATIN 20 MG TAB PO SCH (20:10)
[2022-07-26] VITALS: BP 133/84
[2022-07-26] MEDS: LEVALBUTEROL 1.25MG 0.5ML CONCENTRATE NEB INH SCH ×6 (03:22→23:47)
[2022-07-26] MEDS: IPRATROPIUM 0.02% SOLN 0.5MG 2.5ML NEB INH SCH ×6 (03:22→23:47)
[2022-07-26 04:00] VITALS: BP 128/97
[2022-07-26 05:23] LABS: BASO % 0.3 % (0.0-1.0); EOS % 0.3 % (0.0-3.0); HEMATOCRIT 32.2 % (36.0-47.0); LYMPH # 0.5 10^3/uL (1.5-5.0); LYMPH % 7.6 % (24.0-44.0); MEAN CORPUSCULAR HEMOGLOBIN 32.5 pg (27.0-33.0); MEAN CORPUSCULAR HGB CONC 31.1 g/dl (32.0-36.5); MEAN CORPUSCULAR VOLUME 104.5 fl (80.0-96.0); MONO # 0.7 10^3/uL (0.0-0.8); MONO % 9.8 % (2.0-8.0); NEUTROPHILS # 5.7 10^3/uL (1.5-8.5); NEUTROPHILS % 81.7 % (36.0-66.0); PLATELET COUNT, AUTOMATED 224 10^3/uL (150-450); RED BLOOD COUNT 3.08 10^6/uL (4.00-5.40)
[2022-07-26 05:34] LABS: INR 2.89; PROTHROMBIN TIME 30.7 SECONDS (12.5-14.5)
[2022-07-26 05:42] LABS: MAGNESIUM LEVEL 2.2 MG/DL (1.8-2.4)
[2022-07-26 05:43] LABS: CPK CREATINE PHOSPHOKINASE 858 U/L (34-145)
[2022-07-26 05:51] LABS: ALKALINE PHOSPHATASE 208 U/L (46-116); ALT/SGPT 94 U/L (7.0-40); AST/SGOT 130 U/L (<34); BILIRUBIN,TOTAL 1.1 MG/DL (0.3-1.2); BLOOD UREA NITROGEN 18 MG/DL (9-23); CALCIUM LEVEL 8.7 MG/DL (8.3-10.6); CARBON DIOXIDE LEVEL 24 MMOL/L (20-31); CHLORIDE LEVEL 103 MMOL/L (98-107); CREATININE FOR GFR 0.92 MG/DL (0.55-1.30); GLOMERULAR FILTRATION RATE > 60.0 (>45); GLUCOSE, FASTING 112 MG/DL (74-106); PHOSPHORUS LEVEL 3.4 MG/DL (2.4-5.1); POTASSIUM SERUM 4.7 MMOL/L (3.5-5.1); SODIUM LEVEL 138 MMOL/L (136-145)
[2022-07-26] MEDS: LevoFLOXacin 750 MG TABLET PO SCH (06:04)
[2022-07-26] MEDS: atenoloL 50 MG TAB PO SCH (06:57)
[2022-07-26] MEDS: ADVAIR HFA 230/21MCG INHALER INH SCH ×2 (07:50→20:02)
[2022-07-26 08:00] VITALS: BP 120/76
[2022-07-26] MEDS: MONTELUKAST 10 MG TAB PO SCH (08:57)
[2022-07-26] MEDS: SERTRALINE 100 MG TAB PO SCH (08:57)
[2022-07-26] MEDS: guaiFENesin ER 600 MG TAB PO SCH ×2 (08:57→20:34)
[2022-07-26] MEDS: LACTOBACILLUS ACIDOPHILUS CAP (BACID) PO SCH ×2 (08:58→18:55)
[2022-07-26] MEDS: DIGOXIN 0.125 MG TAB PO SCH (08:58)
[2022-07-26] MEDS: ASPIRIN 81MG CHEW TABLET PO SCH (08:58)
[2022-07-26] MEDS: PANTOPRAZOLE 40MG TAB (PROTONIX) PO SCH (08:58)
[2022-07-26] MEDS: NYSTATIN 100,000 UNITS/GM TOPICAL PWD 15GM TOP SCH ×2 (09:01→20:34)
[2022-07-26] MEDS: FUROSEMIDE 40 MG TAB PO SCH ×2 (09:10→16:47)
[2022-07-26 12:00] VITALS: BP 119/94
[2022-07-26] MEDS ORDERED: atenoloL 25 MG TAB PO ONE (16:20)
[2022-07-26] MEDS: WARFARIN SOD 5MG TAB PO SCH (16:47)
[2022-07-26 20:00] VITALS: BP 111/66
[2022-07-26] MEDS: DONEPEZIL 5 MG TAB PO SCH (20:33)
[2022-07-26] MEDS: valACYclovir HCL 500 MG TAB PO SCH (20:34)
[2022-07-26] MEDS: atenoloL 25 MG TAB PO SCH (20:34)
[2022-07-26] MEDS: PRAVASTATIN 20 MG TAB PO SCH (20:36)
[2022-07-26 23:50] VITALS: BP 108/65
[2022-07-27] MEDS: IPRATROPIUM 0.02% SOLN 0.5MG 2.5ML NEB INH SCH ×6 (05:06→23:53)
[2022-07-27] MEDS: LEVALBUTEROL 1.25MG 0.5ML CONCENTRATE NEB INH SCH ×6 (05:06→23:53)
[2022-07-27 05:09] VITALS: BP 109/66
[2022-07-27] MEDS: LevoFLOXacin 750 MG TABLET PO SCH (05:19)
[2022-07-27 05:54] LABS: MAGNESIUM LEVEL 1.8 MG/DL (1.8-2.4)
[2022-07-27 05:55] LABS: ALBUMIN 2.9 G/DL (3.2-5.2); BILIRUBIN,TOTAL 1.2 MG/DL (0.3-1.2); TOTAL PROTEIN 5.9 G/DL (5.7-8.2)
[2022-07-27 05:56] LABS: BILIRUBIN,DIRECT 0.6 MG/DL (<0.4)
[2022-07-27 05:57] LABS: ALBUMIN 2.9 G/DL (3.2-5.2); BILIRUBIN,TOTAL 1.2 MG/DL (0.3-1.2); CALCIUM LEVEL 8.7 MG/DL (8.3-10.6); CREATININE FOR GFR 1.05 MG/DL (0.55-1.30); GLOMERULAR FILTRATION RATE 56.2 (>45); POTASSIUM SERUM 4.3 MMOL/L (3.5-5.1); TOTAL PROTEIN 5.8 G/DL (5.7-8.2)
[2022-07-27] MEDS: atenoloL 25 MG TAB PO SCH (06:59)
[2022-07-27] MEDS: DIGOXIN 0.125 MG TAB PO SCH (07:00)
[2022-07-27] MEDS: ADVAIR HFA 230/21MCG INHALER INH SCH ×2 (07:57→23:51)
[2022-07-27 08:00] VITALS: BP 106/71
[2022-07-27] MEDS: FUROSEMIDE 40 MG TAB PO SCH ×2 (08:17→17:04)
[2022-07-27] MEDS: PANTOPRAZOLE 40MG TAB (PROTONIX) PO SCH (08:17)
[2022-07-27] MEDS: ASPIRIN 81MG CHEW TABLET PO SCH (08:17)
[2022-07-27] MEDS: LACTOBACILLUS ACIDOPHILUS CAP (BACID) PO SCH ×2 (08:17→18:22)
[2022-07-27] MEDS: NYSTATIN 100,000 UNITS/GM TOPICAL PWD 15GM TOP SCH ×2 (08:18→20:26)
[2022-07-27] MEDS: MONTELUKAST 10 MG TAB PO SCH (08:18)
[2022-07-27] MEDS: guaiFENesin ER 600 MG TAB PO SCH ×2 (08:18→20:25)
[2022-07-27] MEDS: SERTRALINE 100 MG TAB PO SCH (08:18)
[2022-07-27] MEDS ORDERED: MAG SULF 1GM/100ML (MAG RUN) 1 GM in IV 1 EA IV ONE (09:00)
[2022-07-27 12:00] VITALS: BP 123/59
[2022-07-27] MEDS: METOPROLOL TART 50 MG TAB PO SCH ×2 (12:15→18:22)
[2022-07-27] MEDS: WARFARIN SOD 5MG TAB PO SCH (17:05)
[2022-07-27 20:20] VITALS: BP 118/76
[2022-07-27] MEDS: PRAVASTATIN 20 MG TAB PO SCH (20:21)
[2022-07-27] MEDS: valACYclovir HCL 500 MG TAB PO SCH (20:25)
[2022-07-27] MEDS: DONEPEZIL 5 MG TAB PO SCH (20:25)
[2022-07-27 23:59] VITALS: BP 122/85
[2022-07-28] MEDS: METOPROLOL TART 50 MG TAB PO SCH ×2 (00:01→05:16)
[2022-07-28] MEDS: LEVALBUTEROL 1.25MG 0.5ML CONCENTRATE NEB INH SCH ×3 (03:46→11:55)
[2022-07-28] MEDS: IPRATROPIUM 0.02% SOLN 0.5MG 2.5ML NEB INH SCH ×2 (03:46→08:00)
[2022-07-28 04:00] VITALS: BP 126/87
[2022-07-28 04:56] LABS: HEMATOCRIT 32.6 % (36.0-47.0); HEMOGLOBIN 10.2 g/dl (12.0-15.5); MEAN CORPUSCULAR HEMOGLOBIN 32.3 pg (27.0-33.0); MEAN CORPUSCULAR HGB CONC 31.3 g/dl (32.0-36.5); MEAN CORPUSCULAR VOLUME 103.2 fl (80.0-96.0); PLATELET COUNT, AUTOMATED 202 10^3/uL (150-450); RED BLOOD COUNT 3.16 10^6/uL (4.00-5.40); WHITE BLOOD COUNT 6.7 10^3/uL (4.0-10.0)
[2022-07-28 05:15] VITALS: BP 126/87
[2022-07-28] MEDS: LevoFLOXacin 750 MG TABLET PO SCH (05:15)
[2022-07-28 05:20] LABS: MAGNESIUM LEVEL 1.8 MG/DL (1.8-2.4)
[2022-07-28 05:22] LABS: ALBUMIN 2.7 G/DL (3.2-5.2); BILIRUBIN,TOTAL 1.4 MG/DL (0.3-1.2); CALCIUM LEVEL 8.3 MG/DL (8.3-10.6); GLOMERULAR FILTRATION RATE 59.4 (>45); PHOSPHORUS LEVEL 3.6 MG/DL (2.4-5.1); POTASSIUM SERUM 3.9 MMOL/L (3.5-5.1); TOTAL PROTEIN 5.9 G/DL (5.7-8.2)
[2022-07-28 07:40] LABS: BILIRUBIN,DIRECT 0.6 MG/DL (<0.4)
[2022-07-28 08:00] VITALS: BP 96/63
[2022-07-28] MEDS: ADVAIR HFA 230/21MCG INHALER INH SCH (08:35)
[2022-07-28] MEDS: NYSTATIN 100,000 UNITS/GM TOPICAL PWD 15GM TOP SCH (09:00)
[2022-07-28] MEDS: SERTRALINE 100 MG TAB PO SCH (09:12)
[2022-07-28] MEDS: FUROSEMIDE 40 MG TAB PO SCH (09:12)
[2022-07-28] MEDS: MONTELUKAST 10 MG TAB PO SCH (09:12)
[2022-07-28] MEDS: ASPIRIN 81MG CHEW TABLET PO SCH (09:12)
[2022-07-28] MEDS: LACTOBACILLUS ACIDOPHILUS CAP (BACID) PO SCH (09:12)
[2022-07-28] MEDS: PANTOPRAZOLE 40MG TAB (PROTONIX) PO SCH (09:12)
[2022-07-28] MEDS: DIGOXIN 0.125 MG TAB PO SCH (09:13)
[2022-07-28] MEDS: guaiFENesin ER 600 MG TAB PO SCH (09:13)
[2022-07-28] MEDS ORDERED: CARD240C5 PO (09:36)
[2022-07-28] MEDS ORDERED: LOPR1TAB7 PO (09:36)
[2022-07-28] MEDS ORDERED: RISATAB3 PO (09:36)
[2022-07-28] MEDS ORDERED: LEVO1TAB40 PO (09:36)
[2022-07-28] MEDS ORDERED: MUCI600T31 PO (09:36)
[2022-07-28] MEDS ORDERED: IPRATROPIUM 0.02% SOLN 0.5MG 2.5ML NEB INH SCH (14:00)
== END 2022-07-28 11:30 | disposition home or self-care (01) | DRG 308 ==
LOC: EDBD 09:26 → M ED 09:26 → M ICU 14:56 → ENRESERV 15:43
PROVIDERS: ADMIT Internal Medicine; ATTEND Student in an Organized Health Care Education/Training Program
PROC: B246ZZZ Ultrasonography of Right and Left Heart (ICD-10-PCS; principal; 2022-07-19)
DX: I48.91 Unspecified atrial fibrillation (principal); J96.01 Acute respiratory failure with hypoxia; I50.33 Acute on chronic diastolic (congestive) heart failure; J18.9 Pneumonia, unspecified organism; I11.0 Hypertensive heart disease with heart failure; R19.7 Diarrhea, unspecified; F03.90 Unspecified dementia, unspecified severity, without behavioral disturbance, psychotic disturbance, mood disturbance, and anxiety; K76.0 Fatty (change of) liver, not elsewhere classified; E78.5 Hyperlipidemia, unspecified; I27.20 Pulmonary hypertension, unspecified; J44.9 Chronic obstructive pulmonary disease, unspecified; L30.4 Erythema intertrigo; J45.909 Unspecified asthma, uncomplicated; Z86.73 Personal history of transient ischemic attack (TIA), and cerebral infarction without residual deficits; Z87.891 Personal history of nicotine dependence; Z90.49 Acquired absence of other specified parts of digestive tract; Z79.82 Long term (current) use of aspirin; Z79.01 Long term (current) use of anticoagulants; Z79.899 Other long term (current) drug therapy; Z95.2 Presence of prosthetic heart valve; D53.9 Nutritional anemia, unspecified; K59.00 Constipation, unspecified

== ENCOUNTER → 2022-08-05 | Outpatient (CLI) | payer BC, MEDICARE ==
[~2022-08-05] MED LIST changes: +ASPI81CH33 PO; +CARD240C5 PO; +CETI-24 PO; +DILT1CAP46 PO; +DONE10TA90 PO; -FAMOTIDINE 20 MG TAB PO SCH; +JANT5TAB PO; +LEVO1TAB40 PO; +LOPR1TAB7 PO; +MUCI600T31 PO; +RISATAB3 PO; +VENTAER INH; +ZOLO100T PO
[2022-08-05 16:16] LABS: BASO # 0.1 10^3/uL (0.0-0.2); BASO % 1.1 % (0.0-1.0); EOS # 0.2 10^3/uL (0.0-0.5); EOS % 2.8 % (0.0-3.0); HEMATOCRIT 37.9 % (36.0-47.0); HEMOGLOBIN 11.5 g/dl (12.0-15.5); LYMPH # 0.8 10^3/uL (1.5-5.0); LYMPH % 9.3 % (24.0-44.0); MEAN CORPUSCULAR HEMOGLOBIN 32.3 pg (27.0-33.0); MEAN CORPUSCULAR HGB CONC 30.3 g/dl (32.0-36.5); MEAN CORPUSCULAR VOLUME 106.5 fl (80.0-96.0); MONO # 0.6 10^3/uL (0.0-0.8); NEUTROPHILS # 6.8 10^3/uL (1.5-8.5); NEUTROPHILS % 79.4 % (36.0-66.0); PLATELET COUNT, AUTOMATED 293 10^3/uL (150-450); RED BLOOD COUNT 3.56 10^6/uL (4.00-5.40); WHITE BLOOD COUNT 8.6 10^3/uL (4.0-10.0)
[2022-08-05 16:39] LABS: ALBUMIN 3.3 G/DL (3.2-5.2); BILIRUBIN,TOTAL 1.3 MG/DL (0.3-1.2); CALCIUM LEVEL 9.1 MG/DL (8.3-10.6); CREATININE FOR GFR 1.01 MG/DL (0.55-1.30); GLOMERULAR FILTRATION RATE 58.6 (>45); TOTAL PROTEIN 6.7 G/DL (5.7-8.2)
== END ==
LOC: M LABDRWAD 13:02
PROVIDERS: ATTEND Nurse Practitioner Family
DX: J18.9 Pneumonia, unspecified organism (principal)

== ENCOUNTER → 2022-10-27 | Outpatient (CLI) | payer MEDICARE, BC ==
[2022-10-27 14:10] LABS: BASO # 0.1 10^3/uL (0.0-0.2); BASO % 0.7 % (0.0-1.0); EOS # 0.3 10^3/uL (0.0-0.5); EOS % 4.5 % (0.0-3.0); HEMATOCRIT 32.7 % (36.0-47.0); HEMOGLOBIN 10.8 g/dl (12.0-15.5); LYMPH # 0.7 10^3/uL (1.5-5.0); LYMPH % 9.4 % (24.0-44.0); MEAN CORPUSCULAR HEMOGLOBIN 33.9 pg (27.0-33.0); MEAN CORPUSCULAR VOLUME 102.5 fl (80.0-96.0); MONO # 0.6 10^3/uL (0.0-0.8); MONO % 7.9 % (2.0-8.0); NEUTROPHILS # 5.4 10^3/uL (1.5-8.5); NEUTROPHILS % 77.2 % (36.0-66.0); PLATELET COUNT, AUTOMATED 228 10^3/uL (150-450); RED BLOOD COUNT 3.19 10^6/uL (4.00-5.40)
[2022-10-27 14:12] LABS: CALCIUM LEVEL 9.1 MG/DL (8.3-10.6); CREATININE FOR GFR 0.99 MG/DL (0.55-1.30); GLOMERULAR FILTRATION RATE 59.9 (>45); POTASSIUM SERUM 4.6 MMOL/L (3.5-5.1)
[2022-10-27 14:19] LABS: INR 2.53; PROTHROMBIN TIME 27.7 SECONDS (12.5-14.5)
== END ==
LOC: M PLAIMG 08:45
PROVIDERS: ATTEND Nurse Practitioner Family
DX: Z01.818 Encounter for other preprocedural examination (principal); I48.19 Other persistent atrial fibrillation

== ENCOUNTER → 2022-11-09 | Outpatient (REF) | payer MEDICARE, BC ==
[2022-11-09 13:55] LABS: BASO # 0.1 10^3/uL (0.0-0.2); BASO % 0.9 % (0.0-1.0); EOS # 0.3 10^3/uL (0.0-0.5); EOS % 4.8 % (0.0-3.0); HEMATOCRIT 32.4 % (36.0-47.0); HEMOGLOBIN 10.7 g/dl (12.0-15.5); LYMPH # 0.7 10^3/uL (1.5-5.0); LYMPH % 11.6 % (24.0-44.0); MEAN CORPUSCULAR HEMOGLOBIN 34.6 pg (27.0-33.0); MEAN CORPUSCULAR VOLUME 104.9 fl (80.0-96.0); MONO # 0.6 10^3/uL (0.0-0.8); MONO % 10.4 % (2.0-8.0); NEUTROPHILS # 4.2 10^3/uL (1.5-8.5); NEUTROPHILS % 71.8 % (36.0-66.0); PLATELET COUNT, AUTOMATED 253 10^3/uL (150-450); RED BLOOD COUNT 3.09 10^6/uL (4.00-5.40); WHITE BLOOD COUNT 5.8 10^3/uL (4.0-10.0)
[2022-11-09 13:59] LABS: IRON (FE) 169 UG/DL (50-170); PERCENT SATURATION 47.7 % (13.2-45.0); TOTAL IRON BINDING CAPACITY 354 UG/DL (250-425)
[2022-11-09 14:00] LABS: ALBUMIN 3.7 G/DL (3.2-5.2); ALKALINE PHOSPHATASE 90 U/L (46-116); ALT/SGPT 25 U/L (7.0-40); AST/SGOT 74 U/L (<34); BILIRUBIN,TOTAL 0.9 MG/DL (0.3-1.2); BLOOD UREA NITROGEN 23 MG/DL (9-23); CARBON DIOXIDE LEVEL 31 MMOL/L (20-31); CHLORIDE LEVEL 106 MMOL/L (98-107); CHOLESTEROL LEVEL 155 MG/DL (<200); CHOLESTEROL RISK RATIO 3.29 (<5); CREATININE FOR GFR 1.02 MG/DL (0.55-1.30); GLOMERULAR FILTRATION RATE 57.9 (>45); GLUCOSE, FASTING 108 MG/DL (74-106); HDL CHOLESTEROL 47.1 MG/DL (>40); LDL CHOLESTEROL 86.5 MG/DL (<100); NON-HDL-C 107.9 MG/DL; POTASSIUM SERUM 4.2 MMOL/L (3.5-5.1); SODIUM LEVEL 142 MMOL/L (136-145); TOTAL PROTEIN 6.5 G/DL (5.7-8.2); TRIGLYCERIDES LEVEL 107 MG/DL (<150)
[2022-11-09 14:03] LABS: TOTAL 25(OH) VITAMIN D 45.3 NG/ML (20.0-100.0)
[2022-11-09 14:04] LABS: FERRITIN 84.1 NG/ML (7.3-270.7)
[2022-11-09 14:06] LABS: FOLATE > 24.0 NG/ML (>5.4); VITAMIN B12 LEVEL > 2000 PG/ML (211-911)
== END ==
LOC: M LABDRWAD 12:58
PROVIDERS: ATTEND Nurse Practitioner Family
DX: D50.9 Iron deficiency anemia, unspecified (principal); E55.9 Vitamin D deficiency, unspecified; E78.2 Mixed hyperlipidemia

== ENCOUNTER → 2022-11-10 | Outpatient (REF) | payer MEDICARE, BC | LOC: M LAB REF 13:21 | PROVIDERS: ATTEND Nurse Practitioner Family | DX: E78.2 Mixed hyperlipidemia (principal); D50.9 Iron deficiency anemia, unspecified ==

== ENCOUNTER 2022-12-08 09:41 | Day surgery (SDC) | payer BC, MEDICARE ==
[~2022-12-08] VITALS: Ht 157.5 cm; Wt 64.3 kg
[~2022-12-08 09:41] MED LIST changes: +ALLO10TA PO; +HYDR-643 PO; +NS 1,000 ML IV ONE
[2022-12-08] MEDS ORDERED: propofoL 200 MG/20 ML VIAL As Ordered ONE ×2 (11:43→12:19)
[2022-12-08 12:55] VITALS: BP 131/64
== END 2022-12-08 12:58 | disposition home or self-care (01) ==
LOC: M OPP 09:41
PROVIDERS: ATTEND Surgery
DX: K63.5 Polyp of colon (principal); K64.9 Unspecified hemorrhoids; D50.9 Iron deficiency anemia, unspecified; K31.7 Polyp of stomach and duodenum; K44.9 Diaphragmatic hernia without obstruction or gangrene; G47.33 Obstructive sleep apnea (adult) (pediatric); Z99.89 Dependence on other enabling machines and devices; Z79.02 Long term (current) use of antithrombotics/antiplatelets; Z79.51 Long term (current) use of inhaled steroids; Z79.82 Long term (current) use of aspirin; Z79.891 Long term (current) use of opiate analgesic; Z79.899 Other long term (current) drug therapy; Z87.891 Personal history of nicotine dependence

== ENCOUNTER → 2022-12-23 | Outpatient (CLI) | payer BC ==
[~2022-12-23] MED LIST changes: -NS 1,000 ML IV ONE
== END ==
LOC: M WHC 08:15
PROVIDERS: ATTEND Nurse Practitioner Family
DX: Z12.31 Encounter for screening mammogram for malignant neoplasm of breast (principal)

== ENCOUNTER → 2023-01-03 | Outpatient (CLI) | payer BC ==
[~2023-01-03] MED LIST changes: +propofoL 200 MG/20 ML VIAL As Ordered ONE
== END ==
LOC: M RAD 15:26
PROVIDERS: ATTEND Nurse Practitioner Family
DX: M79.662 Pain in left lower leg (principal)

== ENCOUNTER → 2023-01-24 | Outpatient (CLI) | payer BC ==
[~2023-01-24] MED LIST changes: -propofoL 200 MG/20 ML VIAL As Ordered ONE
== END ==
LOC: M RAD 10:03
PROVIDERS: ATTEND Nurse Practitioner Adult Health
DX: R91.1 Solitary pulmonary nodule (principal)

== ENCOUNTER → 2023-05-12 | Outpatient (REF) | payer BC ==
[2023-05-12 13:04] LABS: BASO # 0.1 10^3/uL (0.0-0.2); BASO % 1.1 % (0.0-1.0); EOS # 0.4 10^3/uL (0.0-0.5); EOS % 4.6 % (0.0-3.0); HEMOGLOBIN 10.1 g/dl (12.0-15.5); LYMPH # 0.6 10^3/uL (1.5-5.0); LYMPH % 7.5 % (24.0-44.0); MEAN CORPUSCULAR HEMOGLOBIN 35.9 pg (27.0-33.0); MEAN CORPUSCULAR HGB CONC 33.7 g/dl (32.0-36.5); MEAN CORPUSCULAR VOLUME 106.8 fl (80.0-96.0); MONO % 12.1 % (2.0-8.0); NEUTROPHILS # 5.8 10^3/uL (1.5-8.5); NEUTROPHILS % 73.6 % (36.0-66.0); PLATELET COUNT, AUTOMATED 298 10^3/uL (150-450); RED BLOOD COUNT 2.81 10^6/uL (4.00-5.40); WHITE BLOOD COUNT 7.9 10^3/uL (4.0-10.0)
== END ==
LOC: M LABDRWAD 12:25
PROVIDERS: ATTEND Nurse Practitioner Family
DX: D50.9 Iron deficiency anemia, unspecified (principal)

== ENCOUNTER → 2023-06-02 | Outpatient (REF) | payer BC ==
[2023-06-02 16:50] LABS: BASO % 0.6 % (0.0-1.0); EOS # 0.2 10^3/uL (0.0-0.5); EOS % 2.6 % (0.0-3.0); HEMATOCRIT 35.2 % (36.0-47.0); HEMOGLOBIN 11.5 g/dl (12.0-15.5); LYMPH # 0.7 10^3/uL (1.5-5.0); LYMPH % 10.4 % (24.0-44.0); MEAN CORPUSCULAR HEMOGLOBIN 34.6 pg (27.0-33.0); MEAN CORPUSCULAR HGB CONC 32.7 g/dl (32.0-36.5); MONO # 0.7 10^3/uL (0.0-0.8); NEUTROPHILS % 76.1 % (36.0-66.0); PLATELET COUNT, AUTOMATED 192 10^3/uL (150-450); RED BLOOD COUNT 3.32 10^6/uL (4.00-5.40); WHITE BLOOD COUNT 6.6 10^3/uL (4.0-10.0)
[2023-06-02 17:00] LABS: INR 1.87; PROTHROMBIN TIME 20.9 SECONDS (12.5-14.5)
[2023-06-02 17:21] LABS: ALBUMIN 3.7 G/DL (3.2-5.2); BILIRUBIN,TOTAL 1.8 MG/DL (0.3-1.2); CALCIUM LEVEL 9.2 MG/DL (8.3-10.6); CREATININE FOR GFR 1.05 MG/DL (0.55-1.30); POTASSIUM SERUM 4.3 MMOL/L (3.5-5.1)
== END ==
LOC: M LABDRWAD 16:02
PROVIDERS: ATTEND Nurse Practitioner Family
DX: R04.0 Epistaxis (principal)

== ENCOUNTER → 2023-10-26 | Outpatient (REF) | payer BC ==
[2023-10-26 14:22] LABS: BASO # 0.1 10^3/uL (0.0-0.2); EOS # 0.4 10^3/uL (0.0-0.5); EOS % 5.4 % (0.0-3.0); HEMATOCRIT 34.9 % (36.0-47.0); HEMOGLOBIN 12.3 g/dl (12.0-15.5); LYMPH # 0.7 10^3/uL (1.5-5.0); LYMPH % 11.1 % (24.0-44.0); MEAN CORPUSCULAR HEMOGLOBIN 36.9 pg (27.0-33.0); MEAN CORPUSCULAR HGB CONC 35.2 g/dl (32.0-36.5); MEAN CORPUSCULAR VOLUME 104.8 fl (80.0-96.0); MONO # 0.5 10^3/uL (0.0-0.8); MONO % 7.8 % (2.0-8.0); NEUTROPHILS % 74.6 % (36.0-66.0); PLATELET COUNT, AUTOMATED 200 10^3/uL (150-450); RED BLOOD COUNT 3.33 10^6/uL (4.00-5.40); WHITE BLOOD COUNT 6.7 10^3/uL (4.0-10.0)
[2023-10-26 14:46] LABS: CALCIUM LEVEL 9.2 MG/DL (8.3-10.6); CREATININE FOR GFR 1.15 MG/DL (0.55-1.30); GLOMERULAR FILTRATION RATE 50.3 (>45)
== END ==
LOC: M LABDRWAD 13:28
PROVIDERS: ATTEND Internal Medicine Cardiovascular Disease
DX: I36.1 Nonrheumatic tricuspid (valve) insufficiency (principal); I34.9 Nonrheumatic mitral valve disorder, unspecified

== ENCOUNTER → 2023-11-18 | Outpatient (REF) | payer BC ==
[2023-11-18 12:59] LABS: BASO # 0.1 10^3/uL (0.0-0.2); EOS # 0.2 10^3/uL (0.0-0.5); EOS % 3.9 % (0.0-3.0); HEMOGLOBIN 11.9 g/dl (12.0-15.5); LYMPH # 0.7 10^3/uL (1.5-5.0); LYMPH % 11.2 % (24.0-44.0); MEAN CORPUSCULAR HEMOGLOBIN 37.4 pg (27.0-33.0); MEAN CORPUSCULAR VOLUME 106.9 fl (80.0-96.0); MONO # 0.5 10^3/uL (0.0-0.8); MONO % 9.2 % (2.0-8.0); NEUTROPHILS # 4.4 10^3/uL (1.5-8.5); NEUTROPHILS % 74.5 % (36.0-66.0); PLATELET COUNT, AUTOMATED 203 10^3/uL (150-450); RED BLOOD COUNT 3.18 10^6/uL (4.00-5.40); WHITE BLOOD COUNT 5.9 10^3/uL (4.0-10.0)
[2023-11-18 13:29] LABS: BILIRUBIN,DIRECT 0.4 MG/DL (<0.4); BILIRUBIN,TOTAL 1.1 MG/DL (0.3-1.2); CALCIUM LEVEL 9.1 MG/DL (8.3-10.6); CHOLESTEROL RISK RATIO 3.26 (<5); CREATININE FOR GFR 1.1 MG/DL (0.55-1.30); GLOMERULAR FILTRATION RATE 52.9 (>45); HDL CHOLESTEROL 43.5 MG/DL (>40); LDL CHOLESTEROL 77.3 MG/DL (<100); NON-HDL-C 98.5 MG/DL; POTASSIUM SERUM 4.3 MMOL/L (3.5-5.1); TOTAL PROTEIN 6.9 G/DL (5.7-8.2)
== END ==
LOC: M LABDRWAD 12:20
PROVIDERS: ATTEND Nurse Practitioner Family
DX: D50.9 Iron deficiency anemia, unspecified (principal); E78.2 Mixed hyperlipidemia

== ENCOUNTER 2023-12-02 17:18 | Inpatient (IN) | payer BC ==
[~2023-12-02] VITALS: Ht 157.5 cm; Wt 68.7 kg
[~2023-12-02 17:18] MED LIST changes: -DILT1CAP46 PO; +DILT360C22 PO
[2023-12-02 18:06] LABS: VENOUS HCO3 22.9 MMOL/L (23.0-27.0); VENOUS O2 SATURATION 49.6 % (60.0-80.0); VENOUS PARTIAL PRESSURE CO2 39.5 mmHg (38.0-50.0); VENOUS PARTIAL PRESSURE O2 30.6 mmHg (30.0-50.0); VENOUS PH 7.381 UNITS (7.330-7.430); VENOUS STANDARD HCO3 22.1 MMOL/L; VENOUS TOTAL CO2 24.1 MMOL/L (24.0-28.0)
[2023-12-02 18:11] LABS: BASO % 0.4 % (0.0-1.0); EOS # 0.1 10^3/uL (0.0-0.5); LYMPH # 0.3 10^3/uL (1.5-5.0); LYMPH % 3.6 % (24.0-44.0); MEAN CORPUSCULAR HEMOGLOBIN 33.3 pg (27.0-33.0); MEAN CORPUSCULAR HGB CONC 30.9 g/dl (32.0-36.5); MEAN CORPUSCULAR VOLUME 107.8 fl (80.0-96.0); MONO # 0.5 10^3/uL (0.0-0.8); MONO % 6.2 % (2.0-8.0); NEUTROPHILS # 6.8 10^3/uL (1.5-8.5); NEUTROPHILS % 88.3 % (36.0-66.0); PLATELET COUNT, AUTOMATED 213 10^3/uL (150-450); RED BLOOD COUNT 2.04 10^6/uL (4.00-5.40); WHITE BLOOD COUNT 7.8 10^3/uL (4.0-10.0)
[2023-12-02 18:20] LABS: HEMOGLOBIN 6.8 g/dl (12.0-15.5)
[2023-12-02 18:31] LABS: D-DIMER QUANT 0.35 ug/mL (<0.5); INR 2.79; PARTIAL THROMBOPLASTIN TIME 40.7 SECONDS (24.8-34.2); PROTHROMBIN TIME 28.4 SECONDS (12.5-14.5)
[2023-12-02 18:39] LABS: LIPASE 40 U/L (12-53)
[2023-12-02 18:42] LABS: CPK CREATINE PHOSPHOKINASE 68 U/L (34-145)
[2023-12-02 19:03] LABS: ALBUMIN 3.3 G/DL (3.2-5.2); ALKALINE PHOSPHATASE 95 U/L (46-116); ALT/SGPT 27 U/L (7.0-40); AST/SGOT 55 U/L (<34); BILIRUBIN,DIRECT 0.6 MG/DL (<0.4); BILIRUBIN,TOTAL 1.4 MG/DL (0.3-1.2); BLOOD UREA NITROGEN 13 MG/DL (9-23); CALCIUM LEVEL 7.9 MG/DL (8.3-10.6); CARBON DIOXIDE LEVEL 27 MMOL/L (20-31); CHLORIDE LEVEL 101 MMOL/L (98-107); CK-MB VALUE MASS 1.5 NG/ML (<3.6); CREATININE FOR GFR 1.13 MG/DL (0.55-1.30); FREE T4 1.09 NG/DL (0.89-1.76); GLOMERULAR FILTRATION RATE 51.3 (>45); GLUCOSE, FASTING 107 MG/DL (74-106); POTASSIUM SERUM 3.3 MMOL/L (3.5-5.1); SODIUM LEVEL 138 MMOL/L (136-145); TOTAL PROTEIN 5.8 G/DL (5.7-8.2)
[2023-12-02 19:37] LABS: MB/CK RELATIVE INDEX 1.56 (< OR =4)
[2023-12-02] MEDS: POTASSIUM CHLORIDE 10% LIQ 20MEQ/15ML UDC PO ONE (20:22)
[2023-12-02 21:40] VITALS: BP 131/59; TEMP 98.9
[2023-12-02] MEDS ORDERED: ACETAMINOPHEN TAB 650MG DOSE (2X325MG) PO PRN (21:40)
[2023-12-02 21:56] VITALS: BP 137/59; TEMP 99; O2SAT 96
[2023-12-02] MEDS ORDERED: MED REC IN PROGRESS XX SCH (22:15)
[2023-12-02 22:37] LABS: IRON (FE) 29 UG/DL (50-170); PERCENT SATURATION 8.3 % (13.2-45.0); TOTAL IRON BINDING CAPACITY 348 UG/DL (250-425)
[2023-12-02 22:40] LABS: FERRITIN 79.9 NG/ML (7.3-270.7); FOLATE > 24.0 NG/ML (>5.4); VITAMIN B12 LEVEL 1041 PG/ML (211-911)
[2023-12-02 22:41] VITALS: BP 111/62; TEMP 100.3; O2SAT 96
[2023-12-02] MEDS: FUROSEMIDE 40MG/4ML VIAL IV ONE (22:55)
[2023-12-02 23:41] VITALS: BP 140/86; TEMP 99.1; O2SAT 93
[2023-12-03] VITALS (16 sets, daily range): BP systolic 114–154; BP diastolic 56–76; TEMP 97.1–100.1; O2SAT 86–97
[2023-12-03] MEDS ORDERED: METO50TA7 PO ×2 (00:27)
[2023-12-03] MEDS ORDERED: WARF-21 PO (00:27)
[2023-12-03] MEDS ORDERED: DILT240C83 PO (00:27)
[2023-12-03] MEDS ORDERED: ASPI81TA26 PO (00:27)
[2023-12-03] MEDS ORDERED: FLUT1BLS17 INH (00:36)
[2023-12-03] MEDS ORDERED: COEN100T PO (00:36)
[2023-12-03] MEDS ORDERED: OFLOSO OTIC (00:36)
[2023-12-03] MEDS ORDERED: HOME MED LIST COMPLETE! XX SCH (00:40)
[2023-12-03] MEDS: FUROSEMIDE 40MG/4ML VIAL IV ONE (01:11)
[2023-12-03 01:24] LABS: HEMATOCRIT 24.7 % (36.0-47.0); HEMOGLOBIN 7.9 g/dl (12.0-15.5); MEAN CORPUSCULAR HEMOGLOBIN 32.9 pg (27.0-33.0); MEAN CORPUSCULAR VOLUME 102.9 fl (80.0-96.0); PLATELET COUNT, AUTOMATED 206 10^3/uL (150-450)
[2023-12-03 01:46] LABS: CALCIUM LEVEL 7.8 MG/DL (8.3-10.6); CREATININE FOR GFR 1.1 MG/DL (0.55-1.30); GLOMERULAR FILTRATION RATE 52.9 (>45); MAGNESIUM LEVEL 1.9 MG/DL (1.8-2.4); POTASSIUM SERUM 3.8 MMOL/L (3.5-5.1)
[2023-12-03] MEDS: IPRATROPIUM 0.5MG/ALBUTEROL 2.5MG INH SOL UD 3ML (DUONEB) NEB SCH (02:00)
[2023-12-03] MEDS: POTASSIUM CHLORIDE 10MEQ SR TABLET PO ONE ×2 (03:15→08:29)
[2023-12-03 03:21] LABS: PROCALCITONIN 0.08 ng/ml
[2023-12-03] MEDS: DIGOXIN 0.125 MG TAB PO SCH (03:21)
[2023-12-03] MEDS: valACYclovir HCL 500 MG TAB PO SCH (03:21)
[2023-12-03] MEDS: ACETAMINOPHEN TAB 650MG DOSE (2X325MG) PO ONE (04:56)
[2023-12-03 05:33] LABS: BASO % 0.6 % (0.0-1.0); EOS # 0.1 10^3/uL (0.0-0.5); EOS % 1.8 % (0.0-3.0); HEMATOCRIT 27.4 % (36.0-47.0); HEMOGLOBIN 8.9 g/dl (12.0-15.5); LYMPH # 0.2 10^3/uL (1.5-5.0); LYMPH % 3.2 % (24.0-44.0); MEAN CORPUSCULAR HGB CONC 32.5 g/dl (32.0-36.5); MEAN CORPUSCULAR VOLUME 98.6 fl (80.0-96.0); MONO # 0.5 10^3/uL (0.0-0.8); MONO % 7.4 % (2.0-8.0); NEUTROPHILS # 6.3 10^3/uL (1.5-8.5); NEUTROPHILS % 86.6 % (36.0-66.0); PLATELET COUNT, AUTOMATED 195 10^3/uL (150-450); RED BLOOD COUNT 2.78 10^6/uL (4.00-5.40); WHITE BLOOD COUNT 7.3 10^3/uL (4.0-10.0)
[2023-12-03 05:49] LABS: INR 2.16; PROTHROMBIN TIME 23.4 SECONDS (12.5-14.5)
[2023-12-03 06:13] LABS: ALBUMIN 3.2 G/DL (3.2-5.2); BILIRUBIN,TOTAL 2.2 MG/DL (0.3-1.2); CALCIUM LEVEL 7.6 MG/DL (8.3-10.6); CREATININE FOR GFR 1.01 MG/DL (0.55-1.30); GLOMERULAR FILTRATION RATE 58.4 (>45); POTASSIUM SERUM 3.7 MMOL/L (3.5-5.1); TOTAL PROTEIN 5.7 G/DL (5.7-8.2)
[2023-12-03 06:42] LABS: MAGNESIUM LEVEL 1.8 MG/DL (1.8-2.4)
[2023-12-03] MEDS: METOPROLOL TART 50 MG TAB PO ONE (06:46)
[2023-12-03] MEDS ORDERED: SYMBICORT 160/4.5MCG INHALER 6GM INH SCH (08:00)
[2023-12-03] MEDS: DOCUSATE SODIUM 100MG CAPSULE PO SCH (08:28)
[2023-12-03] MEDS: FERRIC CARBOXYMALTOSE INJ 750 MG, VIAL MATE ADAPTER 1 EACH in NS 250 ML IV ONE (08:28)
[2023-12-03] MEDS: MONTELUKAST 10 MG TAB PO SCH (08:28)
[2023-12-03] MEDS: CO-ENZYME Q10 50 MG CAP PO SCH (08:28)
[2023-12-03] MEDS: ASPIRIN 81MG ENTERIC TABLET PO SCH (08:28)
[2023-12-03] MEDS: SERTRALINE 100 MG TAB PO SCH (08:28)
[2023-12-03] MEDS: FUROSEMIDE 40MG/4ML VIAL IV SCH (08:28)
[2023-12-03] MEDS: POTASSIUM CHLORIDE 10MEQ SR TABLET PO SCH (08:29)
[2023-12-03] MEDS: SPIRONOLACTONE 25 MG TAB PO SCH (08:29)
[2023-12-03] MEDS: PANTOPRAZOLE 40MG TAB (PROTONIX) PO SCH (08:29)
[2023-12-03] MEDS ORDERED: METOPROLOL TART 50 MG TAB PO SCH (09:00)
[2023-12-03] MEDS: MAG SULF 1GM/100ML (MAG RUN) 1 GM in IV 1 EA IV ONE (10:34)
[2023-12-03 11:26] LABS: HEMATOCRIT 28.5 % (36.0-47.0); HEMOGLOBIN 9.1 g/dl (12.0-15.5)
[2023-12-03] MEDS: OMEGA-3 1000MG CAPSULE PO SCH (13:23)
[2023-12-03] MEDS: ADVAIR HFA 230/21MCG INHALER INH SCH (13:37)
[2023-12-03] MEDS: WARFARIN SOD 7.5MG TAB PO SCH (17:14)
[2023-12-03] MEDS: dilTIAZem 120MG **CD** CAPSULE PO SCH (18:47)
[2023-12-03] MEDS: DONEPEZIL 5 MG TAB PO SCH (20:02)
[2023-12-03] MEDS: PRAVASTATIN 20 MG TAB PO SCH (20:02)
[2023-12-03] MEDS: METOPROLOL TARTRATE 100MG TAB PO SCH (20:04)
[2023-12-04 04:20] VITALS: BP 132/72; TEMP 97.4; O2SAT 94
[2023-12-04 04:49] LABS: BASO % 0.5 % (0.0-1.0); EOS # 0.3 10^3/uL (0.0-0.5); EOS % 4.9 % (0.0-3.0); HEMATOCRIT 28.4 % (36.0-47.0); HEMOGLOBIN 8.9 g/dl (12.0-15.5); LYMPH # 0.3 10^3/uL (1.5-5.0); LYMPH % 5.4 % (24.0-44.0); MEAN CORPUSCULAR HEMOGLOBIN 31.7 pg (27.0-33.0); MEAN CORPUSCULAR HGB CONC 31.3 g/dl (32.0-36.5); MEAN CORPUSCULAR VOLUME 101.1 fl (80.0-96.0); MONO # 0.6 10^3/uL (0.0-0.8); MONO % 9.8 % (2.0-8.0); NEUTROPHILS # 4.5 10^3/uL (1.5-8.5); NEUTROPHILS % 79.1 % (36.0-66.0); PLATELET COUNT, AUTOMATED 178 10^3/uL (150-450); RED BLOOD COUNT 2.81 10^6/uL (4.00-5.40); WHITE BLOOD COUNT 5.7 10^3/uL (4.0-10.0)
[2023-12-04 04:59] LABS: INR 1.88
[2023-12-04 05:27] LABS: ALBUMIN 2.8 G/DL (3.2-5.2); BILIRUBIN,DIRECT 0.6 MG/DL (<0.4); BILIRUBIN,TOTAL 1.3 MG/DL (0.3-1.2); CALCIUM LEVEL 8.2 MG/DL (8.3-10.6); CREATININE FOR GFR 1.08 MG/DL (0.55-1.30); MAGNESIUM LEVEL 2.1 MG/DL (1.8-2.4); POTASSIUM SERUM 4.2 MMOL/L (3.5-5.1); TOTAL PROTEIN 5.4 G/DL (5.7-8.2)
[2023-12-04 07:49] VITALS: BP 109/54; TEMP 97.2; O2SAT 92
[2023-12-04 08:21] VITALS: O2SAT 94
[2023-12-04 09:00] VITALS: BP 109/54
[2023-12-04] MEDS: METOPROLOL TART 50 MG TAB PO SCH (09:00)
[2023-12-04] MEDS: ENOXAPARIN 80MG/0.8ML SYRINGE (J1650 PER 10MG) SC ONE (09:56)
[2023-12-04] MEDS ORDERED: WARFARIN SOD 5MG TAB PO SCH (17:00)
== END 2023-12-04 11:50 | disposition home or self-care (01) | DRG 194 ==
LOC: M ED 17:18 → M ED INP 21:36 → M PCU 23:22
PROVIDERS: ADMIT Preventive Medicine Undersea and Hyperbaric Medicine; ATTEND Internal Medicine
PROC: 30233N1 Transfusion of Nonautologous Red Blood Cells into Peripheral Vein, Percutaneous Approach (ICD-10-PCS; 2023-12-02)
PROC: B246ZZZ Ultrasonography of Right and Left Heart (ICD-10-PCS; principal; 2023-12-03)
DX: I11.0 Hypertensive heart disease with heart failure (principal); I27.20 Pulmonary hypertension, unspecified; F03.A0 Unspecified dementia, mild, without behavioral disturbance, psychotic disturbance, mood disturbance, and anxiety; J44.1 Chronic obstructive pulmonary disease with (acute) exacerbation; I50.33 Acute on chronic diastolic (congestive) heart failure; I48.91 Unspecified atrial fibrillation; E78.5 Hyperlipidemia, unspecified; J45.909 Unspecified asthma, uncomplicated; D50.9 Iron deficiency anemia, unspecified; B34.8 Other viral infections of unspecified site; F39 Unspecified mood [affective] disorder; K21.9 Gastro-esophageal reflux disease without esophagitis; Z86.73 Personal history of transient ischemic attack (TIA), and cerebral infarction without residual deficits; Z79.01 Long term (current) use of anticoagulants; Z95.2 Presence of prosthetic heart valve; Z87.891 Personal history of nicotine dependence; Z79.52 Long term (current) use of systemic steroids; Z79.899 Other long term (current) drug therapy; Z88.8 Allergy status to other drugs, medicaments and biological substances

== ENCOUNTER → 2023-12-08 | Outpatient (REF) | payer BC ==
[~2023-12-08] MED LIST changes: +ASPI81TA26 PO; +COEN100T PO; +DILT240C83 PO; +FLUT1BLS17 INH; +METO50TA7 PO; +OFLOSO OTIC; +WARF-21 PO
[2023-12-08 15:34] LABS: BASO # 0.1 10^3/uL (0.0-0.2); BASO % 1.2 % (0.0-1.0); EOS # 0.2 10^3/uL (0.0-0.5); EOS % 4.5 % (0.0-3.0); HEMATOCRIT 32.1 % (36.0-47.0); HEMOGLOBIN 10.4 g/dl (12.0-15.5); LYMPH # 0.8 10^3/uL (1.5-5.0); LYMPH % 14.7 % (24.0-44.0); MEAN CORPUSCULAR HEMOGLOBIN 34.8 pg (27.0-33.0); MEAN CORPUSCULAR HGB CONC 32.4 g/dl (32.0-36.5); MEAN CORPUSCULAR VOLUME 107.4 fl (80.0-96.0); MONO # 0.4 10^3/uL (0.0-0.8); MONO % 8.5 % (2.0-8.0); NEUTROPHILS # 3.6 10^3/uL (1.5-8.5); NEUTROPHILS % 70.5 % (36.0-66.0); PLATELET COUNT, AUTOMATED 283 10^3/uL (150-450); RED BLOOD COUNT 2.99 10^6/uL (4.00-5.40); WHITE BLOOD COUNT 5.2 10^3/uL (4.0-10.0)
[2023-12-08 16:03] LABS: ALBUMIN 3.5 G/DL (3.2-5.2); BILIRUBIN,TOTAL 0.9 MG/DL (0.3-1.2); CALCIUM LEVEL 8.9 MG/DL (8.3-10.6); CREATININE FOR GFR 1.14 MG/DL (0.55-1.30); GLOMERULAR FILTRATION RATE 50.8 (>45); PERCENT SATURATION 42.1 % (13.2-45.0); POTASSIUM SERUM 4.6 MMOL/L (3.5-5.1); TOTAL PROTEIN 6.3 G/DL (5.7-8.2)
[2023-12-08 16:05] LABS: FERRITIN 730.3 NG/ML (7.3-270.7)
== END ==
LOC: M LABDRWAD 15:02
PROVIDERS: ATTEND Nurse Practitioner Family
DX: D64.9 Anemia, unspecified (principal)

== ENCOUNTER → 2023-12-14 | Outpatient (CLI) | payer BC ==
[2023-12-14 18:53] LABS: BASO # 0.1 10^3/uL (0.0-0.2); BASO % 1.7 % (0.0-1.0); EOS # 0.2 10^3/uL (0.0-0.5); EOS % 3.7 % (0.0-3.0); HEMATOCRIT 34.4 % (36.0-47.0); HEMOGLOBIN 11.3 g/dl (12.0-15.5); LYMPH # 0.7 10^3/uL (1.5-5.0); LYMPH % 14.6 % (24.0-44.0); MEAN CORPUSCULAR HGB CONC 32.8 g/dl (32.0-36.5); MEAN CORPUSCULAR VOLUME 106.5 fl (80.0-96.0); MONO # 0.6 10^3/uL (0.0-0.8); MONO % 11.6 % (2.0-8.0); NEUTROPHILS # 3.3 10^3/uL (1.5-8.5); NEUTROPHILS % 68.2 % (36.0-66.0); PLATELET COUNT, AUTOMATED 243 10^3/uL (150-450); RED BLOOD COUNT 3.23 10^6/uL (4.00-5.40); WHITE BLOOD COUNT 4.8 10^3/uL (4.0-10.0)
[2023-12-14 19:11] LABS: ALBUMIN 3.7 G/DL (3.2-5.2); BILIRUBIN,TOTAL 0.8 MG/DL (0.3-1.2); CALCIUM LEVEL 9.2 MG/DL (8.3-10.6); CREATININE FOR GFR 1.07 MG/DL (0.55-1.30); GLOMERULAR FILTRATION RATE 54.6 (>45); PERCENT SATURATION 43.3 % (13.2-45.0); POTASSIUM SERUM 4.9 MMOL/L (3.5-5.1); TOTAL PROTEIN 6.6 G/DL (5.7-8.2)
[2023-12-14 19:14] LABS: FERRITIN 424.5 NG/ML (7.3-270.7)
== END ==
LOC: M PLALAB 15:49
PROVIDERS: ATTEND Nurse Practitioner Family
DX: J44.9 Chronic obstructive pulmonary disease, unspecified (principal)

== ENCOUNTER → 2023-12-28 | Outpatient (CLI) | payer BC | LOC: M WHC 09:10 | PROVIDERS: ATTEND Nurse Practitioner Family | DX: Z12.31 Encounter for screening mammogram for malignant neoplasm of breast (principal) ==

== ENCOUNTER → 2024-01-11 | Outpatient (REF) | payer BC ==
[2024-01-11 13:43] LABS: CALCIUM LEVEL 9.5 MG/DL (8.3-10.6); CREATININE FOR GFR 1.03 MG/DL (0.55-1.30); GLOMERULAR FILTRATION RATE 57.1 (>45); POTASSIUM SERUM 3.8 MMOL/L (3.5-5.1)
== END ==
LOC: M LABDRWAD 12:20
PROVIDERS: ATTEND Physician Assistant Medical
DX: R06.02 Shortness of breath (principal)

== ENCOUNTER → 2024-02-01 | Outpatient (REF) | payer BC ==
[2024-02-01 18:49] LABS: BASO # 0.1 10^3/uL (0.0-0.2); BASO % 0.8 % (0.0-1.0); EOS # 0.2 10^3/uL (0.0-0.5); EOS % 4.1 % (0.0-3.0); HEMATOCRIT 30.1 % (36.0-47.0); HEMOGLOBIN 9.7 g/dl (12.0-15.5); LYMPH # 0.4 10^3/uL (1.5-5.0); LYMPH % 6.8 % (24.0-44.0); MEAN CORPUSCULAR HEMOGLOBIN 36.3 pg (27.0-33.0); MEAN CORPUSCULAR HGB CONC 32.2 g/dl (32.0-36.5); MEAN CORPUSCULAR VOLUME 112.7 fl (80.0-96.0); MONO # 0.6 10^3/uL (0.0-0.8); MONO % 9.3 % (2.0-8.0); NEUTROPHILS # 4.7 10^3/uL (1.5-8.5); NEUTROPHILS % 78.7 % (36.0-66.0); PLATELET COUNT, AUTOMATED 247 10^3/uL (150-450); RED BLOOD COUNT 2.67 10^6/uL (4.00-5.40); WHITE BLOOD COUNT 5.9 10^3/uL (4.0-10.0)
[2024-02-01 19:19] LABS: PERCENT SATURATION 25.7 % (13.2-45.0)
[2024-02-01 19:22] LABS: FERRITIN 130.9 NG/ML (7.3-270.7)
== END ==
LOC: M LABDRWAD 17:24
PROVIDERS: ATTEND Family Medicine
DX: D64.9 Anemia, unspecified (principal)

== ENCOUNTER → 2024-05-31 | Outpatient (CLI) | payer BC ==
[~2024-05-31] MED LIST changes: -ACIP1TAB PO; +ALLO100T PO; +BETA250027 PO; +GABA-1490 PO; -GABA600T4 PO; +LOPE1CAP5 PO; +MONT-5 PO; +RABE20TA88 PO; +VITA100093 PO; -VITA500C19 PO; +VITA500C22 PO; +ZYRTTAB8 PO
[2024-05-31 17:13] LABS: BASO # 0.1 10^3/uL (0.0-0.2); BASO % 1.4 % (0.0-1.0); EOS # 0.3 10^3/uL (0.0-0.5); EOS % 5.7 % (0.0-3.0); HEMOGLOBIN 10.8 g/dl (12.0-15.5); LYMPH # 0.5 10^3/uL (1.5-5.0); LYMPH % 10.1 % (24.0-44.0); MEAN CORPUSCULAR HEMOGLOBIN 34.6 pg (27.0-33.0); MEAN CORPUSCULAR HGB CONC 32.7 g/dl (32.0-36.5); MEAN CORPUSCULAR VOLUME 105.8 fl (80.0-96.0); MONO # 0.4 10^3/uL (0.0-0.8); MONO % 8.7 % (2.0-8.0); NEUTROPHILS # 3.6 10^3/uL (1.5-8.5); NEUTROPHILS % 73.7 % (36.0-66.0); PLATELET COUNT, AUTOMATED 220 10^3/uL (150-450); RED BLOOD COUNT 3.12 10^6/uL (4.00-5.40); WHITE BLOOD COUNT 4.9 10^3/uL (4.0-10.0)
[2024-05-31 17:37] LABS: ALBUMIN 3.9 G/DL (3.2-5.2); BILIRUBIN,TOTAL 1.5 MG/DL (0.3-1.2); CALCIUM LEVEL 9.5 MG/DL (8.3-10.6); CREATININE FOR GFR 1.14 MG/DL (0.55-1.30); GLOMERULAR FILTRATION RATE 50.8 (>45); POTASSIUM SERUM 4.2 MMOL/L (3.5-5.1); TOTAL PROTEIN 7.3 G/DL (5.7-8.2)
== END ==
LOC: M LAB 16:15
PROVIDERS: ATTEND Specialist
DX: D58.9 Hereditary hemolytic anemia, unspecified (principal)

== ENCOUNTER → 2024-06-18 | Outpatient (CLI) | payer BC ==
[~2024-06-18] MED LIST changes: -CYCL5TAB PO; +CYCL5TAB4 PO
[2024-06-18 11:09] LABS: BASO # 0.1 10^3/uL (0.0-0.2); BASO % 0.9 % (0.0-1.0); EOS # 0.3 10^3/uL (0.0-0.5); EOS % 3.9 % (0.0-3.0); HEMATOCRIT 36.8 % (36.0-47.0); HEMOGLOBIN 12.6 g/dl (12.0-15.5); LYMPH # 0.6 10^3/uL (1.5-5.0); MEAN CORPUSCULAR HEMOGLOBIN 35.9 pg (27.0-33.0); MEAN CORPUSCULAR HGB CONC 34.2 g/dl (32.0-36.5); MEAN CORPUSCULAR VOLUME 104.8 fl (80.0-96.0); MONO # 0.7 10^3/uL (0.0-0.8); MONO % 11.1 % (2.0-8.0); NEUTROPHILS # 4.8 10^3/uL (1.5-8.5); NEUTROPHILS % 74.8 % (36.0-66.0); PLATELET COUNT, AUTOMATED 231 10^3/uL (150-450); RED BLOOD COUNT 3.51 10^6/uL (4.00-5.40); WHITE BLOOD COUNT 6.5 10^3/uL (4.0-10.0)
[2024-06-18 11:41] LABS: ALBUMIN 3.8 G/DL (3.2-5.2); CALCIUM LEVEL 9.5 MG/DL (8.3-10.6); CHOLESTEROL RISK RATIO 3.71 (<5); CREATININE FOR GFR 1.07 MG/DL (0.55-1.30); GLOMERULAR FILTRATION RATE 54.6 (>45); HDL CHOLESTEROL 43.1 MG/DL (>40); LDL CHOLESTEROL 80.5 MG/DL (<100); NON-HDL-C 116.9 MG/DL; POTASSIUM SERUM 4.5 MMOL/L (3.5-5.1); TOTAL PROTEIN 6.8 G/DL (5.7-8.2)
== END ==
LOC: M PLALAB 09:15
PROVIDERS: ATTEND Nurse Practitioner Family
DX: I10 Essential (primary) hypertension (principal); E78.2 Mixed hyperlipidemia

== ENCOUNTER 2024-07-20 08:15 | Day surgery (SDC) | payer BC, MEDICARE ==
[~2024-07-20] VITALS: Ht 157.5 cm; Wt 64.4 kg
[~2024-07-20 08:15] MED LIST changes: +ENOX80IN3; +FLUT1BLS17 PO; +GNP250TA9 PO; +OMEG-28 PO; +SLOW142T5; +WARF-23 PO
[2024-07-20] MEDS ORDERED: propofoL 200 MG/20 ML VIAL As Ordered ONE (09:06)
[2024-07-20 09:50] VITALS: TEMP 96.9
[2024-07-20 10:10] VITALS: BP 133/71; O2SAT 95
== END 2024-07-20 10:39 | disposition home or self-care (01) ==
LOC: M OPP 08:15
PROVIDERS: ATTEND Surgery
DX: K63.5 Polyp of colon (principal); K55.20 Angiodysplasia of colon without hemorrhage; K64.8 Other hemorrhoids; D50.9 Iron deficiency anemia, unspecified; Z86.0100 Personal history of colon polyps, unspecified; K44.9 Diaphragmatic hernia without obstruction or gangrene; K31.89 Other diseases of stomach and duodenum; I48.91 Unspecified atrial fibrillation; I10 Essential (primary) hypertension; E78.00 Pure hypercholesterolemia, unspecified; K21.9 Gastro-esophageal reflux disease without esophagitis; M19.90 Unspecified osteoarthritis, unspecified site; F03.90 Unspecified dementia, unspecified severity, without behavioral disturbance, psychotic disturbance, mood disturbance, and anxiety; F32.A Depression, unspecified; J45.909 Unspecified asthma, uncomplicated; J44.9 Chronic obstructive pulmonary disease, unspecified; G47.33 Obstructive sleep apnea (adult) (pediatric); Z99.89 Dependence on other enabling machines and devices; Z86.73 Personal history of transient ischemic attack (TIA), and cerebral infarction without residual deficits; Z87.891 Personal history of nicotine dependence; Z88.8 Allergy status to other drugs, medicaments and biological substances; Z79.01 Long term (current) use of anticoagulants; Z79.51 Long term (current) use of inhaled steroids; Z79.82 Long term (current) use of aspirin; Z79.899 Other long term (current) drug therapy; Z95.4 Presence of other heart-valve replacement

== ENCOUNTER → 2024-08-13 | Outpatient (CLI) | payer BC ==
[2024-08-13 10:55] LABS: BASO # 0.1 10^3/uL (0.0-0.2); BASO % 0.5 % (0.0-1.0); EOS # 0.1 10^3/uL (0.0-0.5); EOS % 0.8 % (0.0-3.0); HEMATOCRIT 27.8 % (36.0-47.0); HEMOGLOBIN 9.1 g/dl (12.0-15.5); LYMPH # 0.5 10^3/uL (1.5-5.0); LYMPH % 4.3 % (24.0-44.0); MEAN CORPUSCULAR HEMOGLOBIN 35.4 pg (27.0-33.0); MEAN CORPUSCULAR HGB CONC 32.7 g/dl (32.0-36.5); MEAN CORPUSCULAR VOLUME 108.2 fl (80.0-96.0); MONO # 0.5 10^3/uL (0.0-0.8); MONO % 4.8 % (2.0-8.0); NEUTROPHILS # 9.5 10^3/uL (1.5-8.5); NEUTROPHILS % 89.1 % (36.0-66.0); PLATELET COUNT, AUTOMATED 334 10^3/uL (150-450); RED BLOOD COUNT 2.57 10^6/uL (4.00-5.40); WHITE BLOOD COUNT 10.7 10^3/uL (4.0-10.0)
[2024-08-13 11:14] LABS: ALBUMIN 3.4 G/DL (3.2-5.2); BILIRUBIN,TOTAL 1.4 MG/DL (0.3-1.2); CREATININE FOR GFR 1.14 MG/DL (0.55-1.30); GLOMERULAR FILTRATION RATE 50.6 (>45); POTASSIUM SERUM 4.1 MMOL/L (3.5-5.1); TOTAL PROTEIN 6.7 G/DL (5.7-8.2)
== END ==
LOC: M LAB 09:24
PROVIDERS: ATTEND Internal Medicine Hematology & Oncology
DX: D58.9 Hereditary hemolytic anemia, unspecified (principal)

== ENCOUNTER 2024-08-17 11:10 | Inpatient (IN) | payer MEDICARE, BC ==
[~2024-08-17] VITALS: Ht 157.5 cm; Wt 63.4 kg
[2024-08-17 12:19] LABS: KETONE, URINE AUTO RFX NEGATIVE (NEGATIVE); LEUKOCYTE ESTERASE UR AUTO RFX TRACE (NEGATIVE); MUCUS, URINE RFX SMALL (NEGATIVE); NITRITE, URINE AUTO RFX NEGATIVE (NEGATIVE); RBC, URINE AUTO RFX 1 /HPF (0-3); SQUAM EPITHELIAL CELL UR AURFX 1 /HPF (0-6); WBC, URINE AUTO RFX 5 /HPF (0-3)
[2024-08-17 12:57] LABS: HEMATOCRIT 32.4 % (36.0-47.0); HEMOGLOBIN 10.2 g/dl (12.0-15.5); MEAN CORPUSCULAR HEMOGLOBIN 32.4 pg (27.0-33.0); MEAN CORPUSCULAR HGB CONC 31.5 g/dl (32.0-36.5); MEAN CORPUSCULAR VOLUME 102.9 fl (80.0-96.0); PLATELET COUNT, AUTOMATED 318 10^3/uL (150-450); RED BLOOD COUNT 3.15 10^6/uL (4.00-5.40); WHITE BLOOD COUNT 7.8 10^3/uL (4.0-10.0)
[2024-08-17 13:22] LABS: BLOOD UREA NITROGEN 23 MG/DL (9-23); CALCIUM LEVEL 8.6 MG/DL (8.3-10.6); CARBON DIOXIDE LEVEL 29 MMOL/L (20-31); CHLORIDE LEVEL 108 MMOL/L (98-107); CREATININE FOR GFR 0.94 MG/DL (0.55-1.30); GLOMERULAR FILTRATION RATE > 60.0 (>45); GLUCOSE, FASTING 107 MG/DL (74-106); POTASSIUM SERUM 3.9 MMOL/L (3.5-5.1); SODIUM LEVEL 145 MMOL/L (136-145)
[2024-08-17 14:38] LABS: INR 1.85; PROTHROMBIN TIME 21.5 SECONDS (12.5-14.5)
[2024-08-17 14:59] LABS: FREE T4 1.08 NG/DL (0.89-1.76); THYROID STIMULATING HORMONE 1.434 uIU/ML (0.55-4.78)
[2024-08-17 15:35] LABS: DIGOXIN LEVEL 0.3 NG/ML (0.8-2.0)
[2024-08-17] MEDS ORDERED: ISOVUE-370 76% 100ML VIAL As Ordered ONE (15:58)
[2024-08-17] MEDS: IPRATROPIUM 0.5MG/ALBUTEROL 2.5MG INH SOL UD 3ML (DUONEB) NEB ONE (16:14)
[2024-08-17] MEDS ORDERED: WARF-23 PO (18:35)
[2024-08-17] MEDS ORDERED: ZYRT10TA12 PO (18:35)
[2024-08-17] MEDS ORDERED: METO50TA7 PO (18:35)
[2024-08-17] MEDS ORDERED: ALBU2.5V10 NEB (18:36)
[2024-08-17] MEDS ORDERED: COLA100C5 PO (18:36)
[2024-08-17] MEDS ORDERED: MUCI1TAB16 PO (18:36)
[2024-08-17] MEDS ORDERED: HOME MED LIST COMPLETE! XX SCH (18:40)
[2024-08-17 18:57] LABS: VENOUS HCO3 26.4 MMOL/L (23.0-27.0); VENOUS PARTIAL PRESSURE CO2 45.1 mmHg (38.0-50.0); VENOUS PARTIAL PRESSURE O2 31.3 mmHg (30.0-50.0); VENOUS PH 7.385 UNITS (7.330-7.430); VENOUS STANDARD HCO3 24.6 MMOL/L; VENOUS TOTAL CO2 27.8 MMOL/L (24.0-28.0)
[2024-08-17 19:36] LABS: ALBUMIN 3.6 G/DL (3.2-5.2); ALKALINE PHOSPHATASE 112 U/L (35-104); ALT/SGPT 38 U/L (7.0-40); AST/SGOT 87 U/L (<34); BILIRUBIN,DIRECT 0.6 MG/DL (<0.4); BILIRUBIN,TOTAL 1.8 MG/DL (0.3-1.2); C REACTIVE PROTEIN QUANTITATIV < 0.50 MG/DL (<1.0); TOTAL PROTEIN 6.8 G/DL (5.7-8.2)
[2024-08-17 19:42] LABS: PROCALCITONIN 0.05 ng/ml
[2024-08-17] MEDS ORDERED: MOM 30ML SUSPENSION UDC PO PRN (19:55)
[2024-08-17] MEDS ORDERED: ACETAMINOPHEN 325 MG TAB PO PRN (19:55)
[2024-08-17] MEDS ORDERED: MAALOX 30 ML SUSP *UDC PO PRN (19:55)
[2024-08-17] MEDS: DIGOXIN 0.125 MG TAB PO SCH (20:37)
[2024-08-17] MEDS: CETIRIZINE (ZyrTEC) 10 MG TAB PO SCH (20:38)
[2024-08-17] MEDS: PRAVASTATIN 20 MG TAB PO SCH (20:38)
[2024-08-17] MEDS: DOCUSATE SODIUM 100MG CAPSULE PO SCH (20:38)
[2024-08-17] MEDS: dilTIAZem 120MG **CD** CAPSULE PO SCH (20:39)
[2024-08-17] MEDS: METOPROLOL TART 50 MG TAB PO SCH (20:40)
[2024-08-17] MEDS: FUROSEMIDE 20MG/2ML VIAL IV ONE (20:41)
[2024-08-17] MEDS: SYMBICORT 160/4.5MCG INHALER 6GM INH SCH (20:55)
[2024-08-17] MEDS: valACYclovir HCL 500 MG TAB PO SCH (20:57)
[2024-08-17] MEDS: WARFARIN SOD 2.5MG TAB PO ONE (21:14)
[2024-08-17 21:29] LABS: CK-MB VALUE MASS < 1.0 NG/ML (<3.6)
[2024-08-17 21:31] LABS: CPK CREATINE PHOSPHOKINASE 40 U/L (34-145)
[2024-08-17 21:54] VITALS: BP 117/65; TEMP 97.9; O2SAT 95
[2024-08-17 22:07] VITALS: O2SAT 92
[2024-08-18] VITALS (7 sets, daily range): BP systolic 103–120; BP diastolic 54–76; TEMP 97.9–98.2; O2SAT 84–94
[2024-08-18 06:05] LABS: HEMATOCRIT 30.3 % (36.0-47.0); HEMOGLOBIN 9.7 g/dl (12.0-15.5); MEAN CORPUSCULAR HEMOGLOBIN 33.8 pg (27.0-33.0); MEAN CORPUSCULAR VOLUME 105.6 fl (80.0-96.0); PLATELET COUNT, AUTOMATED 277 10^3/uL (150-450); RED BLOOD COUNT 2.87 10^6/uL (4.00-5.40); WHITE BLOOD COUNT 5.3 10^3/uL (4.0-10.0)
[2024-08-18 06:15] LABS: INR 1.77; PROTHROMBIN TIME 20.8 SECONDS (12.5-14.5)
[2024-08-18 06:43] LABS: ALBUMIN 3.2 G/DL (3.2-5.2); ALKALINE PHOSPHATASE 102 U/L (35-104); ALT/SGPT 29 U/L (7.0-40); AST/SGOT 74 U/L (<34); BILIRUBIN,TOTAL 1.4 MG/DL (0.3-1.2); BLOOD UREA NITROGEN 18 MG/DL (9-23); CALCIUM LEVEL 8.6 MG/DL (8.3-10.6); CARBON DIOXIDE LEVEL 25 MMOL/L (20-31); CHLORIDE LEVEL 110 MMOL/L (98-107); CREATININE FOR GFR 0.95 MG/DL (0.55-1.30); GLOMERULAR FILTRATION RATE > 60.0 (>45); GLUCOSE, FASTING 104 MG/DL (74-106); MAGNESIUM LEVEL 2.1 MG/DL (1.8-2.4); SODIUM LEVEL 146 MMOL/L (136-145); TOTAL PROTEIN 6.2 G/DL (5.7-8.2)
[2024-08-18] MEDS: CO-ENZYME Q10 50 MG CAP PO SCH (08:27)
[2024-08-18] MEDS: ASPIRIN 81MG ENTERIC TABLET PO SCH (08:28)
[2024-08-18] MEDS: MONTELUKAST 10 MG TAB PO SCH (08:28)
[2024-08-18] MEDS: POTASSIUM CHLORIDE 10MEQ SR TABLET PO SCH (08:28)
[2024-08-18] MEDS: SERTRALINE HCL 50 MG TAB PO SCH (08:28)
[2024-08-18] MEDS: PANTOPRAZOLE 40MG TAB (PROTONIX) PO SCH (08:28)
[2024-08-18] MEDS: FUROSEMIDE 40 MG TAB PO SCH (09:00)
[2024-08-18] MEDS: SPIRONOLACTONE 25 MG TAB PO SCH (09:00)
[2024-08-18] MEDS: METOPROLOL TART 50 MG TAB PO SCH (09:48)
[2024-08-18] MEDS: ENOXAPARIN 80MG/0.8ML SYRINGE (J1650 PER 10MG) SC ONE (13:14)
[2024-08-18 15:37] LABS: PROTHROMBIN TIME 22.8 SECONDS (12.5-14.5)
[2024-08-18] MEDS ORDERED: PRED20TA PO (16:31)
[2024-08-18] MEDS: WARFARIN SOD 2.5MG TAB PO SCH (17:21)
[2024-08-18] MEDS ORDERED: METOPROLOL TARTRATE 100MG TAB PO SCH (21:00)
[2024-08-19] MEDS ORDERED: WARFARIN SOD 5MG TAB PO SCH (17:00)
== END 2024-08-18 17:44 | disposition home or self-care (01) | DRG 189 ==
LOC: M ED 11:10 → M ED INP 19:54 → M MSPAV 21:51
PROVIDERS: ADMIT Family Medicine; ATTEND Student in an Organized Health Care Education/Training Program
DX: J96.01 Acute respiratory failure with hypoxia (principal); I50.33 Acute on chronic diastolic (congestive) heart failure; I27.20 Pulmonary hypertension, unspecified; K74.60 Unspecified cirrhosis of liver; I48.91 Unspecified atrial fibrillation; J44.9 Chronic obstructive pulmonary disease, unspecified; I69.311 Memory deficit following cerebral infarction; K76.0 Fatty (change of) liver, not elsewhere classified; G47.33 Obstructive sleep apnea (adult) (pediatric); R51.9 Headache, unspecified; E78.5 Hyperlipidemia, unspecified; D53.9 Nutritional anemia, unspecified; J45.909 Unspecified asthma, uncomplicated; I25.10 Atherosclerotic heart disease of native coronary artery without angina pectoris; K44.9 Diaphragmatic hernia without obstruction or gangrene; K21.9 Gastro-esophageal reflux disease without esophagitis; F32.A Depression, unspecified; Z95.2 Presence of prosthetic heart valve; Z97.4 Presence of external hearing-aid; Z79.01 Long term (current) use of anticoagulants; Z90.49 Acquired absence of other specified parts of digestive tract; Z87.891 Personal history of nicotine dependence; Z79.82 Long term (current) use of aspirin; Z79.899 Other long term (current) drug therapy; Z88.8 Allergy status to other drugs, medicaments and biological substances

== ENCOUNTER → 2024-09-19 | Outpatient (CLI) | payer BC, MEDICARE ==
[~2024-09-19] MED LIST changes: +ALBU2.5V10 NEB; +COLA100C5 PO; +MUCI1TAB16 PO; +PRED20TA PO; +ZYRT10TA12 PO
[2024-09-19 18:01] LABS: BASO # 0.1 10^3/uL (0.0-0.2); BASO % 0.9 % (0.0-1.0); EOS # 0.2 10^3/uL (0.0-0.5); EOS % 2.6 % (0.0-3.0); HEMATOCRIT 35.5 % (36.0-47.0); HEMOGLOBIN 12.3 g/dl (12.0-15.5); LYMPH # 0.7 10^3/uL (1.5-5.0); MEAN CORPUSCULAR HEMOGLOBIN 36.1 pg (27.0-33.0); MEAN CORPUSCULAR HGB CONC 34.6 g/dl (32.0-36.5); MEAN CORPUSCULAR VOLUME 104.1 fl (80.0-96.0); MONO # 0.4 10^3/uL (0.0-0.8); MONO % 6.1 % (2.0-8.0); NEUTROPHILS # 5.2 10^3/uL (1.5-8.5); NEUTROPHILS % 80.2 % (36.0-66.0); PLATELET COUNT, AUTOMATED 206 10^3/uL (150-450); RED BLOOD COUNT 3.41 10^6/uL (4.00-5.40); WHITE BLOOD COUNT 6.5 10^3/uL (4.0-10.0)
[2024-09-19 18:26] LABS: ALBUMIN 3.8 G/DL (3.2-5.2); BILIRUBIN,TOTAL 1.1 MG/DL (0.3-1.2); CALCIUM LEVEL 9.8 MG/DL (8.3-10.6); CREATININE FOR GFR 1.09 MG/DL (0.55-1.30); DIGOXIN LEVEL 1.1 NG/ML (0.8-2.0); GLOMERULAR FILTRATION RATE 53.3 (>45); MAGNESIUM LEVEL 2.6 MG/DL (1.8-2.4); POTASSIUM SERUM 4.7 MMOL/L (3.5-5.1); TOTAL PROTEIN 7.2 G/DL (5.7-8.2)
[2024-09-19 18:27] LABS: THYROID STIMULATING HORMONE 1.265 uIU/ML (0.55-4.78)
[2024-09-19 18:28] LABS: FREE T4 1.09 NG/DL (0.89-1.76)
== END ==
LOC: M PLALAB 13:57
PROVIDERS: ATTEND Nurse Practitioner Family
DX: R00.1 Bradycardia, unspecified (principal)

== ENCOUNTER → 2024-12-07 | Outpatient (REF) | payer BC ==
[2024-12-07 14:13] LABS: BASO # 0.1 10^3/uL (0.0-0.2); BASO % 0.8 % (0.0-1.0); EOS # 0.2 10^3/uL (0.0-0.5); EOS % 3.7 % (0.0-3.0); HEMATOCRIT 37.1 % (36.0-47.0); LYMPH # 0.6 10^3/uL (1.5-5.0); LYMPH % 9.3 % (24.0-44.0); MEAN CORPUSCULAR HEMOGLOBIN 37.7 pg (27.0-33.0); MEAN CORPUSCULAR VOLUME 107.5 fl (80.0-96.0); MONO # 0.6 10^3/uL (0.0-0.8); MONO % 9.3 % (2.0-8.0); NEUTROPHILS # 4.6 10^3/uL (1.5-8.5); NEUTROPHILS % 76.6 % (36.0-66.0); PLATELET COUNT, AUTOMATED 226 10^3/uL (150-450); RED BLOOD COUNT 3.45 10^6/uL (4.00-5.40)
[2024-12-07 14:18] LABS: ALBUMIN 4.1 G/DL (3.2-5.2); BILIRUBIN,TOTAL 1.2 MG/DL (0.3-1.2); CALCIUM LEVEL 9.3 MG/DL (8.3-10.6); CREATININE FOR GFR 0.97 MG/DL (0.55-1.30); GLOMERULAR FILTRATION RATE 64.1 (>45); POTASSIUM SERUM 4.2 MMOL/L (3.5-5.1)
== END ==
LOC: M LABDRWAD 13:25
PROVIDERS: ATTEND Nurse Practitioner Family
DX: M10.9 Gout, unspecified (principal); I10 Essential (primary) hypertension

== ENCOUNTER → 2025-03-25 | Outpatient (REF) | payer BC ==
[~2025-03-25] MED LIST changes: +MEDR4PAK PO; +ONDA-84 PO; -PRAV40TA2 PO; +PRAV40TA85 PO; +PROC10TA5 PO
[2025-03-25 18:35] LABS: C REACTIVE PROTEIN QUANTITATIV < 0.50 MG/DL (<1.0); CALCIUM LEVEL 9.9 MG/DL (8.3-10.6); CARBON DIOXIDE LEVEL 29 MMOL/L (20-31); CHLORIDE LEVEL 105 MMOL/L (98-107); CREATININE FOR GFR 1.03 MG/DL (0.55-1.30); GLOMERULAR FILTRATION RATE 59.6 (>45); POTASSIUM SERUM 4.4 MMOL/L (3.5-5.1); SODIUM LEVEL 145 MMOL/L (136-145)
== END ==
LOC: M LABDRWAD 17:20
PROVIDERS: ATTEND Nurse Practitioner Family
DX: M10.9 Gout, unspecified (principal)

== ENCOUNTER → 2025-03-27 | Outpatient (CLI) | payer BC ==
[2025-03-27 10:49] LABS: INR 1.51
== END ==
LOC: M LAB 09:13
PROVIDERS: ATTEND Internal Medicine Cardiovascular Disease
DX: Z95.2 Presence of prosthetic heart valve (principal); Z79.01 Long term (current) use of anticoagulants

== ENCOUNTER → 2025-04-18 | Outpatient (REF) | payer BC ==
[2025-04-18 15:50] LABS: BASO # 0.1 10^3/uL (0.0-0.2); BASO % 0.6 % (0.0-1.0); EOS # 0.1 10^3/uL (0.0-0.5); EOS % 0.5 % (0.0-3.0); LYMPH # 0.4 10^3/uL (1.5-5.0); LYMPH % 3.8 % (24.0-44.0); MONO # 0.7 10^3/uL (0.0-0.8); MONO % 7.7 % (2.0-8.0); NEUTROPHILS # 8.4 10^3/uL (1.5-8.5); NEUTROPHILS % 87.0 % (36.0-66.0); PLATELET COUNT, AUTOMATED 351 10^3/uL (150-450)
[2025-04-18 18:14] LABS: CALCIUM LEVEL 9.6 MG/DL (8.3-10.6); CARBON DIOXIDE LEVEL 27.0 MMOL/L (20-31); CHLORIDE LEVEL 102.0 MMOL/L (98-107); CREATININE FOR GFR 1.16 MG/DL (0.55-1.30); GLOMERULAR FILTRATION RATE 51.7 (>45); POTASSIUM SERUM 4.1 MMOL/L (3.5-5.1); SODIUM LEVEL 141.0 MMOL/L (136-145)
== END ==
LOC: M LAB REF 14:44
PROVIDERS: ATTEND Internal Medicine Cardiovascular Disease
DX: I34.2 Nonrheumatic mitral (valve) stenosis (principal); R06.02 Shortness of breath; I27.20 Pulmonary hypertension, unspecified

== ENCOUNTER → 2025-06-03 | Outpatient (CLI) | payer BC ==
[2025-06-03 14:51] LABS: INR 6.93
== END ==
LOC: M PLALAB 10:00
PROVIDERS: ATTEND Internal Medicine Cardiovascular Disease
DX: Z95.2 Presence of prosthetic heart valve (principal); Z79.01 Long term (current) use of anticoagulants

== ENCOUNTER → 2025-06-13 | Outpatient (CLI) | payer BC ==
[2025-06-13 09:46] LABS: BASO # 0.1 10^3/uL (0.0-0.2); BASO % 0.7 % (0.0-1.0); EOS # 0.4 10^3/uL (0.0-0.5); EOS % 6.1 % (0.0-3.0); LYMPH # 0.3 10^3/uL (1.5-5.0); LYMPH % 4.6 % (24.0-44.0); MONO # 0.5 10^3/uL (0.0-0.8); MONO % 7.3 % (2.0-8.0); NEUTROPHILS # 5.9 10^3/uL (1.5-8.5); NEUTROPHILS % 81.0 % (36.0-66.0); PLATELET COUNT, AUTOMATED 262 10^3/uL (150-450)
[2025-06-13 10:14] LABS: ALT/SGPT 25.0 U/L (7.0-40); AST/SGOT 79.0 U/L (<34)
== END ==
LOC: M LAB 09:12
PROVIDERS: ATTEND Internal Medicine Cardiovascular Disease
DX: Z95.2 Presence of prosthetic heart valve (principal); R06.02 Shortness of breath; Z79.01 Long term (current) use of anticoagulants

== ENCOUNTER → 2025-07-01 | Outpatient (REF) | payer BC ==
[2025-07-01 14:05] LABS: ALT/SGPT 30.0 U/L (7.0-40); AST/SGOT 72.0 U/L (<34)
== END ==
LOC: M LABDRWAD 12:47
PROVIDERS: ATTEND Internal Medicine Cardiovascular Disease
DX: R06.02 Shortness of breath (principal); D64.9 Anemia, unspecified; E78.2 Mixed hyperlipidemia